=== PATIENT | female | born 1960 | race Caucasian/White ===

== ENCOUNTER 2016-12-20 02:49 | Emergency (ER) | payer OTHER ==
[~2016-12-20] VITALS: Ht 165.1 cm; Wt 36.4 kg
[~2016-12-20 02:49] MED LIST: ALBU1NEB10 INH; CALC1CHW3 PO; CARI350T PO; CLR10 PO; DOCU100C31 PO; IPRA1AER2 INH; LIDO5DIS10 TOP; LORA-741 PO; MIRT15TA3 PO; OXGN; OXYC-609 PO; OXYC60TA8 PO; OXYSR/40 PO; RABE20TA5 PO; ZNTT/150 PO; ZOLP5TAB PO
[2016-12-20 02:54] VITALS: Ht 165.1 cm; Wt 36.4 kg
[2016-12-20 03:18] VITALS: TEMP 37
[2016-12-20] MEDS ORDERED: NITROGLYCERIN 0.4 MG SL PER TAB CHARGE SL STA (03:18)
[2016-12-20 03:23] VITALS: O2SAT 96
[2016-12-20] MEDS ORDERED: ALBINS/ INH (03:28)
[2016-12-20] MEDS ORDERED: SODIUM CHLORIDE 0.9% 250ML 250 ML IV STA ×2 (03:29→03:44)
[2016-12-20] MEDS ORDERED: VNTHFA/IN INH (03:30)
[2016-12-20 03:38] LABS: BASO % 0.2 %; BASO ABS # 0.03 K/uL (0-0.2); EOS % 0.2 %; HEMATOCRIT 39.9 % (37-47); IG% 0.4 %; LYMPH % 12.9 %; LYMPH ABS # 1.61 K/uL (1.2-3.4); MEAN CORPUSCULAR HGB CONC 35.3 g/dl (32-36); MEAN PLATELET VOLUME 8.5 fL (7.4-10.4); MONO % 6.9 %; NEUT % 79.4 %; PLATELET COUNT 353 K/uL (130-400); RED BLOOD COUNT 3.44 M/uL (4.2-5.4); WHITE BLOOD COUNT 12.47 K/uL (4.8-10.8)
[2016-12-20] MEDS ORDERED: METHYLPREDNISOLONE 125 MG VIAL IV STA (03:38)
[2016-12-20] MEDS ORDERED: FENTANYL CITRATE INJ 50 MCG/1 ML 2 ML VIAL IV STA (03:42)
[2016-12-20 03:45] LABS: BUN/CREATININE RATIO 8.5 (10-20); CALCIUM 8.8 mg/dl (8.5-10.1); CREATININE 0.61 mg/dl (0.60-1.20)
[2016-12-20 03:59] LABS: COMPLETE YES
--- NOTE | 2016-12-20 04:49 | EMERGENCY ROOM VISIT NOTE ---
History First contact with patient: 02:54 Chief Complaint: CHEST PAIN Stated Complaint: CHEST PAIN Nursing Triage Summary: Chest pain 08/09 and SOB. History of Present Illness The patient is a 56 year old female who presents to the Emergency Room with complaints of midsternal chest pain that woke up out of sleep at 2:30 AM described as aching, ranging in severity 10 out of 10. Nothing makes it better. Breathing makes it worse. Patient states she's been coughing for the past week with yellow-green phlegm. She feels slightly sick. She states she's had a low-grade temperature. Patient denies abdominal pain, diarrhea, leg pain or swelling. She does smoke. She normally wears oxygen. She states this does not feel like her pancreatitis. Patient states she's a few episodes of vomiting. Review of Systems See HPI for pertinent positives & negatives. A total of 10 systems reviewed and were otherwise negative. Past Medical/Surgical History Medical Problems: (1) ABN LIVER FUNCTION STUDY (2) Back pain (3) Terrell's palsy (4) Chest pain (5) CHRONIC OBSTRUCTIVE ASTHMA, NOS (6) COPD (chronic obstructive pulmonary disease) (7) DEPRESSIVE DISORDER NEC (8) EMPHYSEMA NEC (9) GERD (gastroesophageal reflux disease) (10) Osteoporosis (11) Pancreatitis (12) Stomach ulcer (13) TOBACCO USE DISORDER (14) Ulcer Surgical Problems: (1) H/o lumbar spinal surgery (2) H/O tubal ligation (3) History of appendectomy (4) History of carpal tunnel release (5) History of cholecystectomy (6) Hx of appendectomy (7) Hx of cholecystectomy (8) S/p EGD (9) S/p placement of lumbar electrical stimulator Family History Blood clots FH: colon cancer Social History Smoking Status: Current Every Day Smoker Alcohol Use: occasionally Drug Use: none Marital Status: Housing Status: lives with family Occupation Status: unemployed Current/Historical Medications Scheduled Albuterol Sulf (Proventil 0.083% 2.5MG/3ML), 2.5 MG INH DIRECTED Calcium Carbonate-Cholecalcife (Oysco 500+D), 1 TAB PO DAILY Docusate Sodium (Docusate Sodium), 1 CAP PO BID Doxycycline Hyclate (Vibramycin), 100 MG PO BID Ipratropium-Albuterol (Combivent Respimat), 1 PUFF INH QID Lidocaine (Lidoderm Patch 5% Patch), 1 PATCH TOP DAILY Loratadine (Claritin), 10 MG PO DAILY Lorazepam (Ativan), 0.5 MG PO HS Mirtazapine (Remeron), 15 MG PO HS Oxycodone HCl (Oxycontin), 40 MG PO Q12 Oxycodone Hcl (Oxycontin), 60 MG PO Q12 Oxygen (Oxygen), 2 LITERS NA HS Prednisone (Prednisone), 50 MG PO DAILY Rabeprazole Sodium (Aciphex), 20 MG PO BID Ranitidine (Zantac), 150 MG PO BID Scheduled PRN Albuterol Hfa (Ventolin Hfa), 2 PUFFS INH Q6H PRN for SOB/Wheezing Carisoprodol (Soma), 350 MG PO DAILY PRN for Muscle Spasm Oxycodone HCl (Oxycodone HCl), 5 MG PO Q4H PRN for Pain Zolpidem Tartrate (Ambien), 5 MG PO HS PRN for Sleep Allergies Coded Allergies: Morphine (Unverified Allergy, Intermediate, hives, 12/20/16) Sulfa Drugs (Unverified Allergy, Intermediate, PERIORBITAL EDEMA, 12/20/16) Penicillins (Unverified Allergy, Unknown, ., 12/20/16) Physical Exam Vital Signs Date Time Temp Pulse Resp B/P Pulse Ox O2 Delivery O2 Flow Rate FiO2 12/20/16 04:04 108 20 127/79 98 Nasal Cannula 2.0 12/20/16 03:45 109 20 127/81 97 Nasal Cannula 2.0 12/20/16 03:35 113 12/20/16 03:26 116 24 101/80 97 Nasal Cannula 2.0 12/20/16 03:23 96 Nasal Cannula 2.0 12/20/16 03:22 96 Nasal Cannula 2.0 12/20/16 03:18 37.0 12/20/16 02:54 37.0 129 23 133/81 91 Room Air 12/20/16 02:54 92 Room Air Physical Exam VITALS: Vitals are noted on the nurse's note and reviewed by myself. Vital signs tachycardic GENERAL: White female appearing older than stated age wearing oxygen, in no acute distress, nondiaphoretic, well-developed well-nourished. SKIN: The skin was without rashes, erythema, edema, or bruising. There is no tenting of the skin. Capillary reflex less than 2 seconds. HEAD: Normocephalic atraumatic. EARS: External auditory canals clear, tympanic membranes pearly van without erythema or effusion bilaterally. EYES: Pupils equal round and reactive to light and accommodation. Conjunctivae without injection, sclerae without icterus. Extraocular movements intact. NOSE: Patent, turbinates without inflammation or discharge. MOUTH: Mucous membranes mildly dry. Pharynx without erythema or exudate. Uvula midline. Airway patent. Tongue does not deviate. NECK: Supple without nuchal rigidity. No lymphadenopathy. No thyromegaly. Cervical spine is nontender. No JVD. HEART: Regular rate and rhythm LUNGS: Mild diffuse end expiratory wheezes, without rales or rhonchi. No dullness to percussion. No retractions or accessory muscle use. ABDOMEN: Positive bowel sounds x 4. Normal tympanic percussion. Soft, nontender, without masses or organomegaly. Bond sign negative. No guarding or rebound tenderness. MUSCULOSKELETAL: No muscle atrophy, erythema, or edema noted. NEURO: Patient was alert and oriented to person place and time. Normal sensation to light and sharp touch. No focal neurological deficits. Medical Decision & Procedures Laboratory Results 12/20/16 02:28 Red Blood Count 3.44, Mean Corpuscular Volume 116.0, Mean Corpuscular Hemoglobin 41.0, Mean Corpuscular Hemoglobin Concent 35.3, Mean Platelet Volume 8.5, Neutrophils (%) (Auto) 79.4, Lymphocytes (%) (Auto) 12.9, Monocytes (%) ( Auto) 6.9, Eosinophils (%) (Auto) 0.2, Basophils (%) (Auto) 0.2, Neutrophils # ( Auto) 9.89, Lymphocytes # (Auto) 1.61, Monocytes # (Auto) 0.86, Eosinophils # ( Auto) 0.03, Basophils # (Auto) 0.03 12/20/16 02:28 Test 12/20/16 02:28 12/20/16 03:26 12/20/16 04:00 White Blood Count 12.47 K/uL (4.8-10.8) Red Blood Count 3.44 M/uL (4.2-5.4) Hemoglobin 14.1 g/dL (12.0-16.0) Hematocrit 39.9 % (37-47) Mean Corpuscular Volume 116.0 fL (80-100) Mean Corpuscular Hemoglobin 41.0 pg (25-34) Mean Corpuscular Hemoglobin Concent 35.3 g/dl (32-36) Platelet Count 353 K/uL (130-400) Mean Platelet Volume 8.5 fL (7.4-10.4) Neutrophils (%) (Auto) 79.4 % Lymphocytes (%) (Auto) 12.9 % Monocytes (%) (Auto) 6.9 % Eosinophils (%) (Auto) 0.2 % Basophils (%) (Auto) 0.2 % Neutrophils # (Auto) 9.89 K/uL (1.4-6.5) Lymphocytes # (Auto) 1.61 K/uL (1.2-3.4) Monocytes # (Auto) 0.86 K/uL (0.11-0.59) Eosinophils # (Auto) 0.03 K/uL (0-0.5) Basophils # (Auto) 0.03 K/uL (0-0.2) RDW Standard Deviation 56.9 fL (36.4-46.3) RDW Coefficient of Variation 13.6 % (11.5-14.5) Immature Granulocyte % (Auto) 0.4 % Immature Granulocyte # (Auto) 0.05 K/uL (0.00-0.02) Macrocytosis PRESENT Anion Gap 10.0 mmol/L (3-11) Est Creatinine Clear Calc Drug Dose 60.6 ml/min Estimated GFR () 119.1 Estimated GFR (Non- 102.8 BUN/Creatinine Ratio 8.5 (10-20) Calcium Level 8.8 mg/dl (8.5-10.1) Total Bilirubin 0.5 mg/dl (0.2-1) Direct Bilirubin 0.3 mg/dl (0-0.2) Aspartate Amino Transf (AST/SGOT) 56 U/L (15-37) Alanine Aminotransferase (ALT/SGPT) 59 U/L (12-78) Alkaline Phosphatase 1241 U/L (45-117) Total Creatine Kinase 49 U/L (26-192) Creatine Kinase MB 1.0 ng/ml (0.5-3.6) Creatine Kinase MB Ratio 2.0 (0-3.0) Total Protein 7.4 gm/dl (6.4-8.2) Albumin 3.5 gm/dl (3.4-5.0) Lipase 208 U/L (73-393) Bedside Troponin I 0.000 ng/ml (0-0.045) Influenza Type A Antigen Neg for Influ A (NEG) Influenza Type B Antigen Neg for Influ B (NEG) Medications Administered Medications (Trade) Dose Ordered Sig/Jonathon Route Start Time Stop Time Status Last Admin Dose Admin Sodium Chloride (Nss 250ml) 250 ml @ 999 mls/hr Q16M STAT IV 12/20/16 03:29 12/20/16 03:44 DC 12/20/16 03:48 999 MLS/HR Methylprednisolone Sodium Succinate (Solu-Medrol IV) 125 mg NOW STAT IV 12/20/16 03:38 12/20/16 03:39 DC 12/20/16 03:48 125 MG Fentanyl Citrate 50 mcg 50 mcg NOW STAT IV 12/20/16 03:42 12/20/16 03:43 DC 12/20/16 03:52 50 MCG Sodium Chloride (Nss 250ml) 250 ml @ 999 mls/hr Q16M STAT IV 12/20/16 03:44 12/20/16 03:59 DC 12/20/16 03:51 999 MLS/HR ED Course Prior records/ancillary studies reviewed. Triage Nursing notes reviewed. Additional history obtained from family. The patient's history was concerning for chest pain. Differential diagnosis: Etiologies such as cardiac ischemia, aortic dissection, pulmonary embolism, pneumonia, pneumothorax, musculoskeletal, infections, pericarditis, myocarditis , esophageal rupture, gastrointestinal, as well as others were entertained. Physical examination: As above. ER treatment provided: Solu-Medrol, fentanyl, IV fluids On reassessment the patient felt better. Diagnostic interpretation by me: The electrocardiogram was ST depression in the anterior lateral leads, normal intervals, normal axis, rate of 128. EKG compared to prior EKG. Impression sinus tachycardia with ST depressions in the anterolateral leads interpreted by myself The labs revealed Leukocytosis. Negative troponin Imaging studies: Chest x-ray with no acute consolidation or pneumothorax per my interpretation Patient refused admission or further testing. Patient requested to leave. Patient signed out AGAINST MEDICAL ADVICE. I offered the patient repeat cardiac testing for further cardiac workup and stated she would like to leave. She states she'll see her family care doctor Tuesday as scheduled for follow- up. She understands the risks involved such as heart attack and/or or infection. She was given a short prescription of prednisone. She is advised to continue her nebulizer. She is advised to return to the ER for further workup worsening signs or symptoms or as needed. Patient had a negative troponin. She does stress echo February 2016 that was normal. By the evaluation outlined above emergent etiologies such as aortic dissection , pulmonary embolism, pneumonia, pneumothorax, pericarditis, myocarditis, gastrointestinal, as well as others were deemed relatively unlikely. The pt informed about the findings as listed above. All questions were answered and pleased with the treatment. Return instructions were outlined and the patient was discharged in stable condition. Outpatient prescription management: Penicillin Referral: The patient was referred back to primary care physician for follow-up in 2 to 3 days for a recheck of the current condition. Case reviewed with my attending. Medical Decision As above Impression Primary Impression: COPD exacerbation Additional Impression: Chest pain Departure Information Dispostion Against Medical Advice Condition FAIR Prescriptions Prednisone (Prednisone Tab) 20 Mg Tab 40 MG PO DAILY for 4 Days, #8 TAB Prov: Glenis Santana .MAHENDRA 12/20/16 Doxycycline Hyclate (VIBRAMYCIN) 100 Mg Cap 100 MG PO BID for 7 Days, #14 CAP Prov: Glenis Santana PA-C 12/20/16 Referrals Marcelo Epps M.D. (PCP) Patient Instructions My [facility] Additional Instructions You are leaving AGAINST MEDICAL ADVICE. You are at risk for heart attack and/ or . Albuterol Inhaler: Take 2 puffs four times daily for five days, then as needed. Prednisone 20mmg daily until the prescription is finished. It is best to take this earlier in the day as some patients note occasional difficulty falling asleep when taken in the late evening. Rest and drink plenty of fluids. Avoid smoke/smoking, fumes, dust, or any triggers in the past that may have affected your breathing. Continue current medications. Return to the ER for chest pain, difficulty breathing, fevers, vomiting, worsening of your condition, or as needed. Follow up with your primary physician in one to 2 days for a recheck of your current condition. Problem Qualifiers
[2016-12-20] MEDS ORDERED: PRED50TA PO (04:50)
[2016-12-20] MEDS ORDERED: DOXY100C2 PO (04:52)
[2016-12-20] MEDS ORDERED: PRED20TA2 PO (04:54)
[2016-12-20 04:58] VITALS: BP 126/80; PULSE 105; O2SAT 96
[2016-12-20 06:08] LABS: INFLUENZA A PCR Neg for Influ A (NEG); INFLUENZA B PCR Neg for Influ B (NEG)
--- NOTE | 2016-12-20 06:38 | DIAGNOSTIC IMAGING REPORT ---
CHEST ONE VIEW PORTABLE CLINICAL HISTORY: Atypical chest pain COMPARISON STUDY: 07/29/2016 FINDINGS: The cardiac and mediastinal contours are normal. There is no evidence of focal pulmonary consolidation. There is no evidence of failure. No pleural effusions are visualized.[ IMPRESSION: No active disease in the chest. Electronically signed by: Patrice Gomes M.D. 12/20/2016 6:36 AM Dictated Date/Time: 12/20/2016 6:36 AM
[2017-03-07] MEDS ORDERED: NCDT14 TD (17:47)
[2017-03-15] MEDS ORDERED: RABE20TA5 PO (00:41)
[2017-03-15] MEDS ORDERED: UMEC1AER INH (00:41)
[2017-03-31] MEDS ORDERED: ASPI81TA28 PO (15:46)
[2017-03-31] MEDS ORDERED: PREDPOW63 PO (16:16)
[2017-03-31] MEDS ORDERED: UMEC1AER INH (16:16)
[2017-05-27] MEDS ORDERED: PRLSR20 PO (11:38)
[2017-05-27] MEDS ORDERED: UMEC1AER INH (11:38)
== END 2016-12-20 04:58 | disposition left against medical advice (07) ==
LOC: EDBD 02:49 → C.EDA 02:50
DX: J44.1 Chronic obstructive pulmonary disease with (acute) exacerbation (principal); G51.0 Bell's palsy; K21.9 Gastro-esophageal reflux disease without esophagitis; M81.0 Age-related osteoporosis without current pathological fracture; F17.210 Nicotine dependence, cigarettes, uncomplicated; Z98.51 Tubal ligation status; Z90.49 Acquired absence of other specified parts of digestive tract; Z79.899 Other long term (current) drug therapy

== ENCOUNTER 2017-02-24 03:28 | Inpatient (IN) | payer OTHER ==
[~2017-02-24] VITALS: Ht 165.1 cm; Wt 39.0 kg
[2017-02-24] VITALS (7 sets, daily range): BP systolic 110–148; BP diastolic 69–82; PULSE 62–97; TEMP 36–36.5; O2SAT 95–100; Ht 165.1 cm; Wt 39.0 kg
[~2017-02-24 03:28] MED LIST changes: +ALBINS/ INH; -ALBU1NEB10 INH; +DOXY100C2 PO; +VNTHFA/IN INH
[2017-02-24] MEDS ORDERED: ONDANSETRON INJ 2 MG/ML 2 ML VIAL ONE (04:04)
[2017-02-24] MEDS ORDERED: FENTANYL CITRATE INJ 50 MCG/1 ML 2 ML VIAL ONE (04:04)
--- NOTE | 2017-02-24 04:18 | EMERGENCY ROOM VISIT NOTE ---
History Report prepared by Estelaibujnior: Navneet Turk Under the Supervision of: Dr. Gabe Parrish D.O. First contact with patient: 04:11 Chief Complaint: ABDOMINAL PAIN Stated Complaint: ABD PAIN,BACK PAIN,VOMITING History of Present Illness The patient is a 56 year old female with a history of pancreatitis who presents to the Emergency Room with complaints of persistent severe abdominal pain for the past two hours. The pain radiates to her chest and is rated 10/10 in severity. The patient also complains of nausea and vomiting. She denies any fevers. The patient notes that her pain feels like past episodes of pancreatitis. She attributes the pancreatitis to alcohol. The patient denies recent heavy drinking. Source of History: patient Onset: two hours [employer] Position: abdomen Symptom Intensity: severe Timing: other (persistent) Associated Symptoms: + nausea, + vomiting, No fevers Review of Systems See HPI for pertinent positives and negatives. A total of ten systems were reviewed and were otherwise negative. Past Medical & Surgical Medical Problems: (1) ABN LIVER FUNCTION STUDY (2) Back pain (3) Terrell's palsy (4) Chest pain (5) CHRONIC OBSTRUCTIVE ASTHMA, NOS (6) COPD (chronic obstructive pulmonary disease) (7) DEPRESSIVE DISORDER NEC (8) EMPHYSEMA NEC (9) GERD (gastroesophageal reflux disease) (10) Osteoporosis (11) Pancreatitis (12) Stomach ulcer (13) TOBACCO USE DISORDER (14) Ulcer Surgical Problems: (1) H/o lumbar spinal surgery (2) H/O tubal ligation (3) History of appendectomy (4) History of carpal tunnel release (5) History of cholecystectomy (6) Hx of appendectomy (7) Hx of cholecystectomy (8) S/p EGD (9) S/p placement of lumbar electrical stimulator Family History Blood clots FH: colon cancer Social History Smoking Status: Current Every Day Smoker Alcohol Use: occasionally Drug Use: none Marital Status: Housing Status: lives with family Occupation Status: unemployed Current/Historical Medications Scheduled Albuterol Sulf (Proventil 0.083% 2.5MG/3ML), 2.5 MG INH DIRECTED Calcium Carbonate-Cholecalcife (Oysco 500+D), 1 TAB PO DAILY Docusate Sodium (Docusate Sodium), 1 CAP PO BID Doxycycline Hyclate (Vibramycin), 100 MG PO BID Ipratropium-Albuterol (Combivent Respimat), 1 PUFF INH QID Lidocaine (Lidoderm Patch 5% Patch), 1 PATCH TOP DAILY Loratadine (Claritin), 10 MG PO DAILY Lorazepam (Ativan), 0.5 MG PO HS Mirtazapine (Remeron), 15 MG PO HS Oxycodone HCl (Oxycontin), 40 MG PO Q12 Oxycodone Hcl (Oxycontin), 60 MG PO Q12 Oxygen (Oxygen), 2 LITERS NA HS Rabeprazole Sodium (Aciphex), 20 MG PO BID Ranitidine (Zantac), 150 MG PO BID Scheduled PRN Albuterol Hfa (Ventolin Hfa), 2 PUFFS INH Q6H PRN for SOB/Wheezing Carisoprodol (Soma), 350 MG PO DAILY PRN for Muscle Spasm Oxycodone HCl (Oxycodone HCl), 5 MG PO Q4H PRN for Pain Zolpidem Tartrate (Ambien), 5 MG PO HS PRN for Sleep Allergies Coded Allergies: Morphine (Unverified Allergy, Intermediate, hives, 12/20/16) Sulfa Drugs (Unverified Allergy, Intermediate, PERIORBITAL EDEMA, 12/20/16) Penicillins (Unverified Allergy, Unknown, ., 12/20/16) Physical Exam Vital Signs Date Time Temp Pulse Resp B/P Pulse Ox O2 Delivery O2 Flow Rate FiO2 02/24/17 03:36 36.8 90 20 150/75 94 Room Air Physical Exam GENERAL: Awake, alert, cachectic, in no distress. Patient vomiting bile. HENT: Normocephalic, atraumatic. Oropharynx unremarkable. EYES: Normal conjunctiva. Sclera non-icteric. NECK: Supple. No nuchal rigidity. FROM. No JVD. RESPIRATORY: Clear to auscultation. CARDIAC: Regular rate, normal rhythm. Extremities warm and well perfused. Pulses equal. ABDOMEN: Soft, non-distended. Tender to palpation of the epigastrium. No rebound or guarding. No masses. RECTAL: Deferred. MUSCULOSKELETAL: Chest examination reveals no tenderness. The back is symmetrical on inspection without obvious abnormality. There is no CVA tenderness to palpation. No joint edema. LOWER EXTREMITIES: Calves are equal size bilaterally and non-tender. No edema. No discoloration. NEURO: Normal sensorium. No sensory or motor deficits noted. SKIN: No rash or jaundice noted. Medical Decision & Procedures Laboratory Results 02/24/17 03:45 Test 02/24/17 03:45 Anion Gap 8.0 mmol/L (3-11) Estimated GFR () 119.8 Estimated GFR (Non- 103.3 BUN/Creatinine Ratio 14.9 (10-20) Calcium Level 8.7 mg/dl (8.5-10.1) Total Bilirubin 0.5 mg/dl (0.2-1) Aspartate Amino Transf (AST/SGOT) 276 U/L (15-37) Alanine Aminotransferase (ALT/SGPT) 154 U/L (12-78) Alkaline Phosphatase 849 U/L (45-117) Total Protein 7.7 gm/dl (6.4-8.2) Albumin 4.1 gm/dl (3.4-5.0) Globulin 3.6 gm/dl (2.5-4.0) Albumin/Globulin Ratio 1.1 (0.9-2) Lipase 953 U/L (73-393) Laboratory results reviewed by me Medications Administered Medications (Trade) Dose Ordered Sig/Jonathon Route Start Time Stop Time Status Last Admin Dose Admin Fentanyl Citrate (Fentanyl Inj) 100 mcg NOW ONCE IV 02/24/17 04:30 02/24/17 04:32 DC 02/24/17 04:35 100 MCG ECG Indication: abdominal pain Rate (beats per minute): 83 Rhythm: normal sinus Findings: no acute ischemic change, no ectopy, other (normal axis, normal intervals) ED Course 0359: The patient was evaluated in room B11b. A complete history and physical exam was performed. 0430: Fentanyl 100 mcg IV. 0422: The patient is still having a lot of pain. 0525: Dilaudid 0.5 mg IV. 0535: [facility] Medical Decision Differential diagnosis: Etiologies such as appendicitis, diverticulitis, PUD, biliary pathology, UTI, pancreatitis, obstruction, mesenteric ischemia, aortic pathology, infections, inflammatory bowel disease, renal colic, as well as others were entertained. Continue to complain of pain patient was given Zofran and fentanyl and Dilaudid. Patient has an elevated lipase. The case was discussed with the [facility] hospitalist for admission at 5:38 AM Impression Primary Impression: Pancreatitis Scribe Attestation The scribe's documentation has been prepared under my direction and personally reviewed by me in its entirety. I confirm that the note above accurately reflects all work, treatment, procedures, and medical decision making performed by me. Departure Information Dispostion Being Evaluated By Hospitalist Referrals Marcelo Epps M.D. (PCP) Patient Instructions My [facility] Problem Qualifiers Primary Impression: Pancreatitis Chronicity: acute Pancreatitis type: alcohol induced Acute pancreatitis complication: unspecified Qualified Codes: K85.20 - Alcohol induced acute pancreatitis without necrosis or infection
[2017-02-24 04:30] LABS: ALT/SGPT 154 U/L (12-78); AST/SGOT 276 U/L (15-37); BLOOD UREA NITROGEN 9 mg/dl (7-18); BUN/CREATININE RATIO 14.9 (10-20); CALCIUM 8.7 mg/dl (8.5-10.1); CARBON DIOXIDE 26 mmol/L (21-32); CHLORIDE 98 mmol/L (98-107); GLUCOSE 123 mg/dl (70-99); POTASSIUM 4.3 mmol/L (3.5-5.1); SODIUM 132 mmol/L (136-145)
[2017-02-24] MEDS ORDERED: FENTANYL CITRATE INJ 50 MCG/1 ML 2 ML VIAL IV ONE (04:30)
[2017-02-24 04:33] LABS: ALB/GLOB RATIO 1.1 (0.9-2); ALKALINE PHOSPHATASE 849 U/L (45-117)
[2017-02-24] MEDS ORDERED: HYDROmorphone INJ 0.5 MG/0.5 ML SYR IV STA (05:25)
[2017-02-24] MEDS ORDERED: OPTIRAY 320 IV PRN (05:45)
--- NOTE | 2017-02-24 05:58 | History and Physical ---
History & Physical Date & Time of Service: Feb 24, 2017 at 05:53 Chief Complaint: Abd Pain,Back Pain,Vomiting Primary Care Physician: Marcelo Epps M.D. History of Present Illness Source: patient, family Patient is a 56 yr old female with PMH of Alcohol abuse disorder, alcoholic pancreatitis, depression, COPD, tobacco abuse, chronic gastritis, cervical spine degeneration, chronic hyponatremia, GERD presents with history of worsening abdominal pain since one day duration. States having epigastric and RUQ abdominal pain radiating to right flank region, Sharp, 10/10 intensity, constant, no aggravating/relieving factors, associated with nausea, vomiting. States having similar pain previously from pancreatitis and admits to drinking alcohol yesterday. Also states having poor appetite, intermittent chills and diaphoresis since 2 days. Denies any fever, SOB, chest pain, palpitations, dizziness, diarrhea, increased urinary frequency, wheezing. States having chronic cough with clear expectoration. Past Medical/Surgical History Medical Problems: (1) ABN LIVER FUNCTION STUDY Status: Chronic (2) Back pain Status: Chronic (3) Terrell's palsy Status: Resolved (4) Chest pain Status: Resolved (5) CHRONIC OBSTRUCTIVE ASTHMA, NOS Status: Chronic (6) COPD (chronic obstructive pulmonary disease) Status: Chronic (7) DEPRESSIVE DISORDER NEC Status: Chronic (8) EMPHYSEMA NEC Status: Chronic (9) GERD (gastroesophageal reflux disease) Status: Chronic (10) Osteoporosis Status: Chronic (11) Pancreatitis Status: Chronic (12) Stomach ulcer Status: Resolved (13) TOBACCO USE DISORDER Status: Chronic (14) Ulcer Status: Chronic Surgical Problems: (1) H/o lumbar spinal surgery Status: Chronic (2) H/O tubal ligation Status: Chronic (3) History of appendectomy Status: Resolved (4) History of carpal tunnel release Status: Resolved (5) History of cholecystectomy Status: Resolved (6) Hx of appendectomy Status: Chronic (7) Hx of cholecystectomy Status: Chronic (8) S/p EGD Status: Chronic (9) S/p placement of lumbar electrical stimulator Status: Chronic Family History Blood clots FH: colon cancer Reviewed. Not relevant Social History Smoking Status: Current Every Day Smoker Alcohol Use: occasionally Drug Use: none Marital Status: Housing status: lives with family Occupational Status: unemployed Immunizations History of Influenza Vaccine: Yes Influenza Vaccine Date: Sep 30, 2015 History of Pneumococcal: Yes Multi-Drug Resistant Organisms History of MDRO: No Allergies Coded Allergies: Morphine (Unverified Allergy, Intermediate, hives, 02/24/17) Sulfa Drugs (Unverified Allergy, Intermediate, PERIORBITAL EDEMA, 02/24/17) Penicillins (Unverified Allergy, Unknown, ., 02/24/17) Home Medications Scheduled Albuterol Sulf (Proventil 0.083% 2.5MG/3ML), 2.5 MG INH DIRECTED Calcium Carbonate-Cholecalcife (Oysco 500+D), 1 TAB PO DAILY Docusate Sodium (Docusate Sodium), 1 CAP PO BID Ipratropium-Albuterol (Combivent Respimat), 1 PUFF INH QID Lidocaine (Lidoderm Patch 5% Patch), 1 PATCH TOP DAILY Loratadine (Claritin), 10 MG PO DAILY Lorazepam (Ativan), 0.5 MG PO HS Mirtazapine (Remeron), 15 MG PO HS Oxycodone HCl (Oxycontin), 40 MG PO Q12 Oxycodone Hcl (Oxycontin), 60 MG PO Q12 Oxygen (Oxygen), 2 LITERS NA HS Rabeprazole Sodium (Aciphex), 20 MG PO BID Ranitidine (Zantac), 150 MG PO BID Scheduled PRN Albuterol Hfa (Ventolin Hfa), 2 PUFFS INH Q6H PRN for SOB/Wheezing Carisoprodol (Soma), 350 MG PO DAILY PRN for Muscle Spasm Oxycodone HCl (Oxycodone HCl), 5 MG PO Q4H PRN for Pain Zolpidem Tartrate (Ambien), 5 MG PO HS PRN for Sleep Review of Systems See HPI for pertinent positives & negatives. A total of 10 systems reviewed and were otherwise negative. Physical Exam Vital Signs Date Time Temp Pulse Resp B/P Pulse Ox O2 Delivery O2 Flow Rate FiO2 02/24/17 03:36 36.8 90 20 150/75 94 Room Air General Appearance: + mild distress, + thin Head: normocephalic, atraumatic Eyes: normal inspection, PERRL, EOMI ENT: normal ENT inspection, hearing grossly normal Neck: supple, trachea midline Respiratory/Chest: chest non-tender, lungs clear, no respiratory distress, no accessory muscle use, + decreased breath sounds Cardiovascular: regular rate, rhythm, no edema, no murmur, + tachycardia Abdomen/GI: normal bowel sounds, soft, + pertinent finding (RUQ and Epigastric tenderness, voluntary guarding) Back: normal inspection Extremities/Musculoskelatal: normal inspection, no calf tenderness, no pedal edema Neurologic/Psych: certified low vision therapist II-XII nml as tested, no motor/sensory deficits, alert, normal mood/affect, oriented x 3 Skin: normal color, warm/dry Lymphatic: no adenopathy Diagnostics Laboratory Results Results Past 24 Hours Test 02/24/17 03:45 Range/Units Sodium Level 132 136-145 mmol/L Potassium Level 4.3 3.5-5.1 mmol/L Chloride Level 98 98-107 mmol/L Carbon Dioxide Level 26 21-32 mmol/L Anion Gap 8.0 3-11 mmol/L Blood Urea Nitrogen 9 7-18 mg/dl Creatinine 0.60 0.60-1.20 mg/dl Estimated GFR () 119.8 Estimated GFR (Non- 103.3 BUN/Creatinine Ratio 14.9 10-20 Random Glucose 123 70-99 mg/dl Calcium Level 8.7 8.5-10.1 mg/dl Total Bilirubin 0.5 0.2-1 mg/dl Aspartate Amino Transf (AST/SGOT) 276 15-37 U/L Alanine Aminotransferase (ALT/SGPT) 154 12-78 U/L Alkaline Phosphatase 849 45-117 U/L Total Protein 7.7 6.4-8.2 gm/dl Albumin 4.1 3.4-5.0 gm/dl Globulin 3.6 2.5-4.0 gm/dl Albumin/Globulin Ratio 1.1 0.9-2 Lipase 953 73-393 U/L Diagnostic Radiology CT Abdomen: pending EKG EKG:Normal sinus Impression Assessment and Plan Acute on chronic alcoholic pancreatitis Presents with epigastric and RUQ abdominal pain, nausea, vomiting after alcohol use Transaminitis, Lipase elevated: 953 ? 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
[2017-02-24] MEDS ORDERED: LORAZEPAM 1 MG TAB PO PRN (06:30)
[2017-02-24] MEDS ORDERED: ONDANSETRON INJ 2 MG/ML 2 ML VIAL IV PRN (06:30)
[2017-02-24] MEDS ORDERED: ACETAMINOPHEN 325 MG TAB PO PRN (06:30)
[2017-02-24] MEDS ORDERED: HYDROmorphone INJ 0.5 MG/0.5 ML SYR IV PRN (06:30)
[2017-02-24 06:33] LABS: BASO % 0.5 %; BASO ABS # 0.04 K/uL (0-0.2); COMPLETE YES; EOS % 0.9 %; IG% 0.3 %; LYMPH % 19.8 %; LYMPH ABS # 1.54 K/uL (1.2-3.4); MEAN CELL VOLUME 117.3 fL (80-100); MEAN CORPUSCULAR HEMOGLOBIN 39.5 pg (25-34); MEAN CORPUSCULAR HGB CONC 33.6 g/dl (32-36); MEAN PLATELET VOLUME 8.8 fL (7.4-10.4); MONO % 5.5 %; PLATELET COUNT 329 K/uL (130-400); RED BLOOD COUNT 3.75 M/uL (4.2-5.4); WHITE BLOOD COUNT 7.78 K/uL (4.8-10.8)
[2017-02-24] MEDS ORDERED: HYDROmorphone INJ 1 MG/ML SYR IV STA (06:37)
[2017-02-24] MEDS ORDERED: OXYCODONE IR HOME PACK PO PRN (06:45)
[2017-02-24] MEDS ORDERED: CARISOPRODOL 350 MG TAB PO PRN (06:45)
[2017-02-24] MEDS ORDERED: NURSING VERBAL MED ORDER ONE ×2 (07:45→09:45)
[2017-02-24] MEDS: SODIUM CHLORIDE 0.9% 1000ML 1,000 ML IV SCH ×4 (08:00→16:07)
[2017-02-24] MEDS ORDERED: SODIUM CHLORIDE 0.9% 1000ML 1,000 ML IV SCH (08:00)
--- NOTE | 2017-02-24 08:19 | DIAGNOSTIC IMAGING REPORT ---
CT OF THE ABDOMEN AND PELVIS WITH CONTRAST CLINICAL HISTORY: Abdominal pain and vomiting. COMPARISON STUDY: CT of the abdomen and pelvis and MRCP March 12, 2016. TECHNIQUE: Following IV administration of 92 mL of Optiray-320, axial images of the abdomen and pelvis were obtained from the lung bases to the proximal femurs. Images were reviewed in the axial, sagittal, and coronal planes. IV contrast was administered without complication. CT DOSE: 245.28 mGy.cm FINDINGS: Moderate biliary ductal dilatation is unchanged since prior exam of March 12, 2016 and likely due to prior cholecystectomy. A 9 mm hypodense lateral segment hepatic lesion is unchanged and suggestive of a cyst. The spleen, adrenal glands and kidneys are normal. The main, left and right portal veins are patent. Evaluation of the abdomen and pelvis is difficult due to paucity of intra-abdominal fat. There is diffuse mesenteric edema and trace ascites. Mild wall thickening of the distal stomach is noted. There is no pneumatosis, free air or portal venous gas. Pancreatic glandular atrophy is noted. There is no pancreatic ductal dilatation. There is intermediate attenuation material along the right aspect of the superior mesenteric artery shown on axial image 29 of 81. This is new since prior exam. This is indeterminate. Note is made of a 7 mm peripancreatic lymph node shown on image 125 which may have central low attenuation. The superior mesenteric and splenic veins are patent. There is no evidence for a bowel obstruction. No suspicious skeletal lesions are identified. There are postsurgical findings within the spine. IMPRESSION: 1. Abnormal soft tissue density abutting the superior mesenteric artery which is new since CT of March 12, 2016. This finding is nonspecific and could reflect the sequela of pancreatitis or less likely hemorrhage. A neoplastic etiology could appear similar and therefore a follow-up CT of the abdomen pancreas protocol in one month is recommended. Findings discussed with Dr. Sauceda at time of dictation. 2. Stable biliary ductal dilatation which is likely due to prior cholecystectomy. 3. Mild wall thickening of the distal stomach. This could be due to underdistention or represent gastritis. 4. Technically difficult study to interpret due to a paucity of intra-abdominal fat with diffuse mesenteric edema and trace ascites. Electronically signed by: Isaac Ballesteros M.D. 02/24/2017 8:18 AM Dictated Date/Time: 02/24/2017 7:53 AM
[2017-02-24 08:32] LABS: PROTHROMBIN TIME (PATIENT) 10.8 SECONDS (9.0-12.0)
[2017-02-24] MEDS: ALBUT/IPRATROP 3MG/0.5MG NEB 3 ML VIAL INH SCH ×3 (08:39→15:47)
[2017-02-24] MEDS ORDERED: THIAMINE HCL 100 MG TAB PO SCH (09:00)
[2017-02-24] MEDS ORDERED: LIDODERM (LIDOCAINE) PATCH 5% TD SCH (09:00)
[2017-02-24] MEDS ORDERED: NICOTINE 14 MG/24 HR TDSY TD SCH (09:00)
[2017-02-24] MEDS ORDERED: DOCUSATE SODIUM 100 MG CAP PO SCH (09:00)
[2017-02-24] MEDS ORDERED: OXYCODONE HCL 20 MG TABCR (OXYCONTIN) PO SCH (09:00)
[2017-02-24] MEDS ORDERED: LORATADINE 10 MG TAB PO SCH (09:00)
[2017-02-24] MEDS ORDERED: FLUTICASONE/SALMETEROL 250/50 (ADVAIR) 14 PUFF/1 INHALER INH SCH (09:00)
[2017-02-24] MEDS ORDERED: HYDROmorphone INJ 1 MG/ML SYR IV ONE (09:45)
[2017-02-24] MEDS ORDERED: HYDROmorphone INJ 1 MG/ML SYR IV PRN (09:45)
[2017-02-24] MEDS ORDERED: PANTOprazole INJ 40 MG in SYRINGE 0 ML IV SCH (11:00)
--- NOTE | 2017-02-24 11:29 | Gastrointestinal Consultation ---
Gastrointestinal Consultation Date of Consultation: Feb 24, 2017 Attending Physician: Dr. Sauceda Consulting Physician: Dr. Llamas Reason for Consultation: Pancreatitis History of Present Illness Patient is a 56 year old female with PMHx of ETOH and tobacco use, depression, COPD, DJD on chronic narcotics, GERD and ETOH pancreatitis on prior admission one year ago admitted for similar symptoms of abdominal pain, nausea and vomiting, elevated lipase at [address] scan detailed below for which GI is consulted. Pt notes she developed acute onset abdominal pain radiating to her back with nausea and bilious vomiting around 2am this morning. Feels similar to past admission one year ago. Denies bowel changes. Has attempted ERCP for tyrone/dil in 2010 but scope was unable to be passed due to her hx of neck surgery with cage. Had EGD same day with hx of gastric ulcer. She has GERD and remains on PPI and Ranitidine. Still having abdominal pain this morning, requiring IV pain meds. Recently saw YOSELYN Mendez in out patient clinic and is ongoing work up for elevated LFTs with alk phos elevated out of proportion to her LFTs. US of abdomen showed no acute abnormalities. Pt has long hx of ETOH use since age 17, drank heaving in her 20's-30's and recently admits to ongoing ETOH, drinking 3 beers/day Pt recently lost brother to lung cancer Has quit drinking for a few years on her own in the past before resuming, tearful about topic today Pt thinks she is able to quit on her own again. Lives with who does not drink (per pt). Voices she does not want to be here long has she has too much responsibility at home. Denies new meds. CT Scan Report as follows: FINDINGS: Moderate biliary ductal dilatation is unchanged since prior exam of March 12, 2016 and likely due to prior cholecystectomy. A 9 mm hypodense lateral segment hepatic lesion is unchanged and suggestive of a cyst. The spleen, adrenal glands and kidneys are normal. The main, left and right portal veins are patent. Evaluation of the abdomen and pelvis is difficult due to paucity of intra-abdominal fat. There is diffuse mesenteric edema and trace ascites. Mild wall thickening of the distal stomach is noted. There is no pneumatosis, free air or portal venous gas. Pancreatic glandular atrophy is noted. There is no pancreatic ductal dilatation. There is intermediate attenuation material along the right aspect of the superior mesenteric artery shown on axial image 29 of 81. This is new since prior exam. This is indeterminate. Note is made of a 7 mm peripancreatic lymph node shown on image 125 which may have central low attenuation. The superior mesenteric and splenic veins are patent. There is no evidence for a bowel obstruction. No suspicious skeletal lesions are identified. There are postsurgical findings within the spine. IMPRESSION: 1. Abnormal soft tissue density abutting the superior mesenteric artery which is new since CT of March 12, 2016. This finding is nonspecific and could reflect the sequela of pancreatitis or less likely hemorrhage. A neoplastic etiology could appear similar and therefore a follow-up CT of the abdomen pancreas protocol in one month is recommended. Findings discussed with Dr. Sauceda at time of dictation. 2. Stable biliary ductal dilatation which is likely due to prior cholecystectomy. 3. Mild wall thickening of the distal stomach. This could be due to underdistention or represent gastritis. 4. Technically difficult study to interpret due to a paucity of intra-abdominal fat with diffuse mesenteric edema and trace ascites. Past Medical/Surgical History Medical Problems: (1) Abnormal liver function test Status: Acute (2) Chest pain Status: Acute (3) COPD exacerbation Status: Acute (4) Gastritis Status: Acute (5) Pancreatitis Status: Chronic (6) Pancreatitis Status: Acute (7) Pancreatitis, acute Status: Acute (8) Right upper quadrant abdominal pain Status: Acute Past Medical History: (1) ABN LIVER FUNCTION STUDY Status: Chronic (2) Back pain Status: Chronic (3) Terrell's palsy Status: Resolved (4) Chest pain Status: Resolved (5) CHRONIC OBSTRUCTIVE ASTHMA, NOS Status: Chronic (6) COPD (chronic obstructive pulmonary disease) Status: Chronic (7) DEPRESSIVE DISORDER NEC Status: Chronic (8) EMPHYSEMA NEC Status: Chronic (9) GERD (gastroesophageal reflux disease) Status: Chronic (10) Osteoporosis Status: Chronic (11) Pancreatitis Status: Chronic (12) Stomach ulcer Status: Resolved (13) TOBACCO USE DISORDER Status: Chronic (14) Ulcer Status: Chronic Past Surgical History: Surgical Problems: (1) H/o lumbar spinal surgery Status: Chronic (2) H/O tubal ligation Status: Chronic (3) History of appendectomy Status: Resolved (4) History of carpal tunnel release Status: Resolved (5) History of cholecystectomy Status: Resolved (6) Hx of appendectomy Status: Chronic (7) Hx of cholecystectomy Status: Chronic (8) S/p EGD Status: Chronic (9) S/p placement of lumbar electrical stimulator Status: Chronic Family History Blood clots FH: colon cancer Social History Smoking Status: Current Every Day Smoker Alcohol Use: occasionally, other (daily per HPI) Drug Use: none Marital Status: Housing Status: lives with family Occupation Status: unemployed Allergies Coded Allergies: Morphine (Verified Allergy, Intermediate, hives, 02/24/17) Penicillins (Verified Allergy, Unknown, ., 02/24/17) Sulfa Antibiotics (Verified Allergy, Unknown, PERIORBITAL EDEMA, 02/24/17) Current Medications Home Meds and Scripts Medications Dose Route/Sig Max Daily Dose Days Date Category Dose Instructions Ventolin Hfa (Albuterol) 200 Puffs/00278 Mcg Aers 2 Puffs INH Q6H PRN 12/20/16 Reported Proventil 0.083% 2.5MG/3ML (Albuterol Sulf) 2.5 Mg/3 Ml Nebu 2.5 Mg INH DIRECTED 12/20/16 Reported Zantac (Ranitidine HCl) 150 Mg Tab 150 Mg PO BID 03/23/16 Reported Oxygen Gas 2 Liters NA HS 09/17/15 Reported Oysco 500+D (Calcium Carbonate-Cholecalcife) 1 Chw Chw 1 Tab PO DAILY 09/17/15 Reported Docusate Sodium 100 Mg Cap 1 Cap PO BID 15 09/17/15 Reported Lidoderm Patch 5% Patch (Lidocaine) 1 Patch Tdsy 1 Patch TOP DAILY 30 09/17/15 Reported Ativan (Lorazepam) 0.5 Mg Tab 0.5 Mg PO HS 09/17/15 Reported Remeron (Mirtazapine) 15 Mg Tab 15 Mg PO HS 11/14/14 Reported Soma (Carisoprodol) 350 Mg Tab 350 Mg PO DAILY PRN 11/14/14 Reported Oxycodone HCl 5 Mg Tab 5 Mg PO Q4H PRN 11/14/14 Reported MAX= 6 TABLETS DAILY. Oxycontin (Oxycodone HCl) 40 Mg Tabcr 40 Mg PO Q12 11/14/14 Reported TAKE ONE 40 MG TABLET ALONG WITH ONE 60 MG TABLET TO EQUAL 100 MG DOSE. Combivent Respimat (Ipratropium-Albuterol) 1 Aer Aer 1 Puff INH QID 03/10/14 Reported Aciphex (Rabeprazole Sodium) 20 Mg Tab 20 Mg PO BID 03/10/14 Reported Claritin (Loratadine) 10 Mg Tab 10 Mg PO DAILY 03/10/14 Reported Oxycontin (Oxycodone Hcl) 60 Mg Tab 60 Mg PO Q12 07/04/13 Reported TAKE ONE 60 MG TABLET ALONG WITH ONE 40 MG TABLET TO EQUAL 100 MG DOSE. Ambien (Zolpidem Tartrate) 5 Mg Tab 5 Mg PO HS PRN 04/12/12 Reported Review of Systems Constitutional: No chills, No fever Eyes: No problem reported ENT: No hearing loss, No pain on swallowing Respiratory: No problem reported (hx of COPD, denies breathing changes) Cardiac: No chest pain, No edema Abdomen: + see HPI (last colonoscopy 2013, requires repeat this year due to suboptimal prep) Musculoskeletal: + joint pain (chronic back pain, on narcotics) Female : No problem reported Neuro: No problem reported Psych: No problem reported Heme: + problem reported Skin: No jaundice Physical Exam Date Time Temp Pulse Resp B/P Pulse Ox O2 Delivery O2 Flow Rate FiO2 02/24/17 08:40 88 16 98 Nasal Cannula 2.0 02/24/17 08:12 36.4 94 18 142/82 100 Nasal Cannula 2.0 02/24/17 07:45 36.4 94 18 148/82 100 Nasal Cannula 2.0 02/24/17 07:26 100 20 172/101 100 Nasal Cannula 2.0 02/24/17 06:33 84 02/24/17 06:28 108 22 100 02/24/17 06:01 152/100 02/24/17 05:45 127/91 02/24/17 05:28 83 100 02/24/17 04:58 84 17 100 02/24/17 04:28 86 15 02/24/17 03:36 36.8 90 20 150/75 94 Room Air 02/24/17 03:36 150/75 General Appearance: WD/WN, no apparent distress Eyes: PERRL ENT: normal ENT inspection, hearing grossly normal Neck: supple Respiratory/Chest: lungs clear, normal breath sounds, no respiratory distress Cardiovascular: regular rate, rhythm Abdomen: soft (no significant tenderness but has had recent pain meds, slight hypoactive bowel sounds, nondistended) Extremities: normal range of motion, no pedal edema Neurologic/Psych: alert, normal mood/affect, oriented x 3 Skin: no jaundice Laboratory Results Last 24 Hours Test 02/24/17 03:45 White Blood Count 7.78 K/uL Red Blood Count 3.75 M/uL Hemoglobin 14.8 g/dL Hematocrit 44.0 % Mean Corpuscular Volume 117.3 fL Mean Corpuscular Hemoglobin 39.5 pg Mean Corpuscular Hemoglobin Concent 33.6 g/dl Platelet Count 329 K/uL Mean Platelet Volume 8.8 fL Neutrophils (%) (Auto) 73.0 % Lymphocytes (%) (Auto) 19.8 % Monocytes (%) (Auto) 5.5 % Eosinophils (%) (Auto) 0.9 % Basophils (%) (Auto) 0.5 % Neutrophils # (Auto) 5.68 K/uL Lymphocytes # (Auto) 1.54 K/uL Monocytes # (Auto) 0.43 K/uL Eosinophils # (Auto) 0.07 K/uL Basophils # (Auto) 0.04 K/uL RDW Standard Deviation 48.6 fL RDW Coefficient of Variation 11.4 % Immature Granulocyte % (Auto) 0.3 % Immature Granulocyte # (Auto) 0.02 K/uL Nucleated RBC Absolute Count (auto) 0.00 K/uL Nucleated Red Blood Cells % 0.0 % Prothrombin Time 10.8 SECONDS Prothromb Time International Ratio 1.0 Sodium Level 132 mmol/L Potassium Level 4.3 mmol/L Chloride Level 98 mmol/L Carbon Dioxide Level 26 mmol/L Anion Gap 8.0 mmol/L Blood Urea Nitrogen 9 mg/dl Creatinine 0.60 mg/dl Estimated GFR () 119.8 Estimated GFR (Non- 103.3 BUN/Creatinine Ratio 14.9 Random Glucose 123 mg/dl Calcium Level 8.7 mg/dl Total Bilirubin 0.5 mg/dl Aspartate Amino Transf (AST/SGOT) 276 U/L Alanine Aminotransferase (ALT/SGPT) 154 U/L Alkaline Phosphatase 849 U/L Troponin I < 0.015 ng/ml Total Protein 7.7 gm/dl Albumin 4.1 gm/dl Globulin 3.6 gm/dl Albumin/Globulin Ratio 1.1 Lipase 953 U/L Impression Patient is a 56 year old female with hx of ETOH use, hx of elevated LFTs, admitted with pancreatitis and CT findings as reported above Plan ok to try clears, advance as tolerated change NSS to LR at 150/hr IV PPI Regarding new area on CT scan, will likely need repeat imaging as recommended by radiology after acute symptoms improve. tyrone/dil is stable (post edmar) Consider out patient EUS (pt was previously recommended in past to have EUS - may need tertiary referral note that she was unable to undergo ERCP in 2010 due to neck/hardware - would need tertiary center referral if issues in future continue out patient follow up for elevated LFTs Pt educated on complications of continued ETOH use, strongly encouraged to stop as this is the most important step for her at this time. Pt thinks some of her symptoms are from "lifting wood" - again educated that ETOH is the biggest factor at this time. I have seen, examined and agree with the plan as outlined by YOSELYN Sylvester as above. -exam reveals soft abd -Very mild tenderness on exam -CT with edema/phlegmon on imaging in posterior to pancreas/sma -ok to start clears, do not support discharge -F/U with [facility] Montemayor and Dr. Denton to decide upon if EUS can be pursued due to neck issues
[2017-02-24] MEDS ORDERED: HEPARIN SOD 5000 UNIT/0.5 ML CARP SQ SCH (14:00)
--- NOTE | 2017-02-24 16:53 | Progress Note ---
Progress Note Date of Service Feb 24, 2017. Progress Note This is a 56 year old female with PMH of alcoholic and recurrent pancreatitis, alcohol abuse, depression, chronic hyponatremia, cervical spine degeneration presents here with abdominal pain - epigastric and RUQ pain in particular. CT abdomen/pelvis performed showing Abnormal soft tissue density abutting the superior mesenteric artery which is new since CT of March 12, 2016 Her lipase was elevated > 900, she was to be on LR @ 150mL/hr and started on clears. As per GI, they did not agree with discharge planning for today; recommended EUS. I saw the patient in room 362; she was calm and pleasant, but stated that she wanted to leave no matter what today. I told her that the trimming department blocker did not recommend her being discharged today, but she insisted. She had some jello for lunch which she tolerated. There is mild tenderness in the epigastric region. Received a phone call that patient would sign out against medical advice. She was told about consequences of signing out. She was told that she needed another CT of the abdomen in a month; outpatient f/u with Tripp Montemayor for possible EUS as outpatient. Should have blood work done to f/u on LFTs as outpatient as well.
--- NOTE | 2017-02-24 16:56 | Discharge Summary ---
Discharge Summary Date of Service Feb 24, 2017. Discharge Summary Admission Date: Feb 24, 2017 at 06:22 Principal Diagnosis: Alcohol Abuse, Alcoholic Pancreatitis Common Bile Duct Dilatation Abnormal CT findings of the SMA Admission Information HPI (per Admitting provider): Patient is a 56 yr old female with PMH of Alcohol abuse disorder, alcoholic pancreatitis, depression, COPD, tobacco abuse, chronic gastritis, cervical spine degeneration, chronic hyponatremia, GERD presents with history of worsening abdominal pain since one day duration. States having epigastric and RUQ abdominal pain radiating to right flank region, Sharp, 10/10 intensity, constant, no aggravating/relieving factors, associated with nausea, vomiting. States having similar pain previously from pancreatitis and admits to drinking alcohol yesterday. Also states having poor appetite, intermittent chills and diaphoresis since 2 days. Denies any fever, SOB, chest pain, palpitations, dizziness, diarrhea, increased urinary frequency, wheezing. States having chronic cough with clear expectoration. Physical Exam (per Admitting): General Appearance: + mild distress, + thin Head: normocephalic, atraumatic Eyes: normal inspection, PERRL, EOMI ENT: normal ENT inspection, hearing grossly normal Neck: supple, trachea midline Respiratory/Chest: chest non-tender, lungs clear, no respiratory distress, no accessory muscle use, + decreased breath sounds Cardiovascular: regular rate, rhythm, no edema, no murmur, + tachycardia Abdomen/GI: normal bowel sounds, soft, + pertinent finding (RUQ and Epigastric tenderness, voluntary guarding) Back: normal inspection Extremities/Musculoskelatal: normal inspection, no calf tenderness, no pedal edema 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 CT abdomen/pelvis performed showing Abnormal soft tissue density abutting the superior mesenteric artery which is new since CT of March 12, 2016 Her lipase was elevated > 900, she was to be on LR @ 150mL/hr and started on clears. As per GI, they did not agree with discharge planning for today; recommended EUS. I saw the patient in room 362; she was calm and pleasant, but stated that she wanted to leave no matter what today. I told her that the clinical informatics physician did not recommend her being discharged today, but she insisted. She had some jello for lunch which she tolerated. There is mild tenderness in the epigastric region. Received a phone call that patient would sign out against medical advice. She was told about consequences of signing out. She was told that she needed another CT of the abdomen in a month; outpatient f/u with Tripp Montemayor for possible EUS as outpatient. Should have blood work done to f/u on LFTs as outpatient as well. Total time spent on discharge = 20 minutes This includes examination of the patient, discharge planning, medication reconciliation, and communication with other providers. Discharge Instructions Patient should follow-up with GI as outpatient EUS as outpatient LFTs as outpatient repeat CT abdomen in one month to f/u on abnormal density around superior mesenteric artery Additional Copies To Aris Llamas MD; Tripp Montemayor C.R.N.P.
[2017-02-24] MEDS ORDERED: MIRTAZAPINE TAB 15 MG TAB PO SCH (21:00)
[2017-03-07] MEDS ORDERED: NCDT14 TD (17:47)
[2017-03-15] MEDS ORDERED: UMEC1AER INH (00:41)
[2017-03-15] MEDS ORDERED: RABE20TA5 PO (00:41)
[2017-03-31] MEDS ORDERED: ASPI81TA28 PO (15:46)
[2017-03-31] MEDS ORDERED: UMEC1AER INH (16:16)
[2017-03-31] MEDS ORDERED: PREDPOW63 PO (16:16)
[2017-05-27] MEDS ORDERED: UMEC1AER INH (11:38)
[2017-05-27] MEDS ORDERED: PRLSR20 PO (11:38)
== END 2017-02-24 16:50 | disposition left against medical advice (07) | DRG 439 ==
LOC: ENRESERVTM → ENRESERVDT → C.EDB 03:28 → C.MSW 06:22
PROVIDERS: ADMIT Internal Medicine; ATTEND Family Medicine
DX: K85.20 Alcohol induced acute pancreatitis without necrosis or infection (principal); E87.1 Hypo-osmolality and hyponatremia; F10.188 Alcohol abuse with other alcohol-induced disorder; F17.210 Nicotine dependence, cigarettes, uncomplicated; F32.9 Major depressive disorder, single episode, unspecified; K21.9 Gastro-esophageal reflux disease without esophagitis; Z87.11 Personal history of peptic ulcer disease; Z88.5 Allergy status to narcotic agent; Z88.2 Allergy status to sulfonamides; Z99.81 Dependence on supplemental oxygen; Z79.899 Other long term (current) drug therapy; K86.0 Alcohol-induced chronic pancreatitis; G89.29 Other chronic pain; M54.2 Cervicalgia; M54.9 Dorsalgia, unspecified; J44.9 Chronic obstructive pulmonary disease, unspecified; M81.0 Age-related osteoporosis without current pathological fracture; Z90.49 Acquired absence of other specified parts of digestive tract; Z80.8 Family history of malignant neoplasm of other organs or systems; Z87.19 Personal history of other diseases of the digestive system

== ENCOUNTER 2017-03-05 23:23 | Inpatient (IN) | payer OTHER ==
[~2017-03-05] VITALS: Ht 165.1 cm; Wt 39.0 kg
[~2017-03-05 23:23] MED LIST changes: -DOXY100C2 PO
[2017-03-05] MEDS ORDERED: HYDROmorphone INJ 0.5 MG/0.5 ML SYR IV STA (23:35)
[2017-03-05 23:44] LABS: BASO % 0.5 %; BASO ABS # 0.03 K/uL (0-0.2); EOS % 1.1 %; HEMATOCRIT 43.8 % (37-47); IG% 0.3 %; LYMPH % 20.6 %; LYMPH ABS # 1.33 K/uL (1.2-3.4); MEAN CORPUSCULAR HEMOGLOBIN 40.5 pg (25-34); MEAN PLATELET VOLUME 8.7 fL (7.4-10.4); MONO % 6.8 %; NEUT % 70.7 %; PLATELET COUNT 254 K/uL (130-400); RED BLOOD COUNT 3.68 M/uL (4.2-5.4); WHITE BLOOD COUNT 6.45 K/uL (4.8-10.8)
--- NOTE | 2017-03-05 23:45 | EMERGENCY ROOM VISIT NOTE ---
History Report prepared by Belkys: Linda Croew Under the Supervision of: Dr. Emely Otoole D.O. First contact with patient: 23:26 Chief Complaint: CARDIAC ASSESSMENT Stated Complaint: EPIASTRIC PAIN/CHEST DISCOMFORT History of Present Illness The patient is a 56 year old female who presents to the Emergency Room with complaints of persistent epigastric abdominal pain that began around 2100 this evening. The patient states that this evening she developed severe epigastric abdominal pain. She notes that she has a history of COPD and pancreatitis. The patient states that she drank half of a beer this evening and notes that her pancreatitis is from drinking alcohol. She states that she still smokes cigarettes. The patient states that she wears 2 liters of supplemental oxygen chronically. She denies any cardiac history. The patient additionally notes chest pain and breathing difficulties with her symptoms today. She notes a history of back and neck surgeries, noting that she takes pain medications at home. The patient states that her last dose was this morning. 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 EMS reports that they gave the patient aspirin prior to arrival without relief of her symptoms. Source of History: patient Onset: 2100 this evening Position: abdomen (epigastric) Timing: other (persistent) Associated Symptoms: + SOB (breathing difficulties), + chest pain Review of Systems See HPI for pertinent positives & negatives. A total of 10 systems reviewed and were otherwise negative. Past Medical & Surgical Medical Problems: (1) Abdominal pain (2) ABN LIVER FUNCTION STUDY (3) Back pain (4) Terrell's palsy (5) Chest pain (6) CHRONIC OBSTRUCTIVE ASTHMA, NOS (7) COPD (chronic obstructive pulmonary disease) (8) DEPRESSIVE DISORDER NEC (9) EMPHYSEMA NEC (10) GERD (gastroesophageal reflux disease) (11) Osteoporosis (12) Pancreatitis (13) Pancreatitis (14) Stomach ulcer (15) TOBACCO USE DISORDER (16) Ulcer Surgical Problems: (1) H/o lumbar spinal surgery (2) H/O tubal ligation (3) History of appendectomy (4) History of carpal tunnel release (5) History of cholecystectomy (6) Hx of appendectomy (7) Hx of cholecystectomy (8) S/p EGD (9) S/p placement of lumbar electrical stimulator Family History Blood clots FH: colon cancer Social History Smoking Status: Current Every Day Smoker Alcohol Use: occasionally, other Drug Use: none Marital Status: Housing Status: lives with family Occupation Status: unemployed Current/Historical Medications Scheduled Albuterol Sulf (Proventil 0.083% 2.5MG/3ML), 2.5 MG INH DIRECTED Calcium Carbonate-Cholecalcife (Oysco 500+D), 1 TAB PO DAILY Docusate Sodium (Docusate Sodium), 1 CAP PO BID Ipratropium-Albuterol (Combivent Respimat), 1 PUFF INH QID Lidocaine (Lidoderm Patch 5%), 1 PATCH TOP DAILY Loratadine (Claritin), 10 MG PO DAILY Lorazepam (Ativan), 0.5 MG PO HS Mirtazapine (Remeron), 15 MG PO HS Oxycodone HCl (Oxycontin), 40 MG PO Q12 Oxycodone Hcl (Oxycontin), 60 MG PO Q12 Oxygen (Oxygen), 2 LITERS NA HS Rabeprazole Sodium (Aciphex), 20 MG PO BID Ranitidine (Zantac), 150 MG PO BID Scheduled PRN Albuterol Hfa (Ventolin Hfa), 2 PUFFS INH Q6H PRN for SOB/Wheezing Carisoprodol (Soma), 350 MG PO DAILY PRN for Muscle Spasm Oxycodone HCl (Oxycodone HCl), 5 MG PO Q4H PRN for Pain Zolpidem Tartrate (Ambien), 5 MG PO HS PRN for Sleep Allergies Coded Allergies: Morphine (Verified Allergy, Intermediate, hives, 03/05/17) Penicillins (Verified Allergy, Unknown, ., 03/05/17) Sulfa Antibiotics (Verified Allergy, Unknown, PERIORBITAL EDEMA, 03/05/17) Physical Exam Vital Signs Date Time Temp Pulse Resp B/P Pulse Ox O2 Delivery O2 Flow Rate FiO2 03/06/17 01:00 142/78 03/06/17 00:58 83 22 100 Nasal Cannula 2.0 03/06/17 00:53 87 20 100 Nasal Cannula 2.0 03/06/17 00:30 148/86 03/06/17 00:23 82 21 100 Nasal Cannula 2.0 03/06/17 00:00 138/82 03/05/17 23:53 85 18 96 Nasal Cannula 2.0 03/05/17 23:48 133/82 03/05/17 23:38 87 03/05/17 23:29 126/84 03/05/17 23:23 100 Nasal Cannula 2.0 03/05/17 23:23 36.7 88 19 126/84 98 Nasal Cannula 2.0 03/05/17 23:23 100 Nasal Cannula 2.0 Physical Exam HEENT: Head - normocephalic and atraumatic Pupils are equal, round, and reactive to light. Extraocular eye muscles are intact, and sclera are anicteric. Nose - moist nasal mucosa without discharge. Mouth - moist buccal mucosa. Oropharynx is nonerythematous and there is no tonsillar exudate or edema noted. Neck: Supple; no JVD, nuchal rigidity, cervical lymphadenopathy. Heart: Regular rate and rhythm. There is a normal S1 and S2 with no murmurs, clicks, or gallops appreciated. Lungs: Clear to auscultation bilaterally with no wheezes, rales, or rhonchi. Abdomen: Severe epigastric tenderness to palpation. Soft, nondistended, with good bowel sounds. There are no palpable pulsatile masses or hepatosplenomegaly. There is no guarding, rigidity, or rebound noted. Extremities: Excoriated areas to the legs and arms. No evidence of cyanosis, clubbing, or edema. There are easily palpable peripheral pulses. Skin: warm and dry with good turgor and no rashes. Neuro: Obvious Buffalo Palsy to the right side of the face. Medical Decision & Procedures ER Provider Diagnostic Interpretation: 1 view chest x-ray: no cardiomegaly, no pulmonary infiltrates or consolidation. Laboratory Results Test 03/05/17 23:10 RDW Standard Deviation 51.2 fL (36.4-46.3) RDW Coefficient of Variation 11.8 % (11.5-14.5) White Blood Count 6.45 K/uL (4.8-10.8) Red Blood Count 3.68 M/uL (4.2-5.4) Hemoglobin 14.9 g/dL (12.0-16.0) Hematocrit 43.8 % (37-47) Mean Corpuscular Volume 119.0 fL (80-100) Mean Corpuscular Hemoglobin 40.5 pg (25-34) Mean Corpuscular Hemoglobin Concent 34.0 g/dl (32-36) Platelet Count 254 K/uL (130-400) Mean Platelet Volume 8.7 fL (7.4-10.4) Neutrophils (%) (Auto) 70.7 % Lymphocytes (%) (Auto) 20.6 % Monocytes (%) (Auto) 6.8 % Eosinophils (%) (Auto) 1.1 % Basophils (%) (Auto) 0.5 % Neutrophils # (Auto) 4.56 K/uL (1.4-6.5) Lymphocytes # (Auto) 1.33 K/uL (1.2-3.4) Monocytes # (Auto) 0.44 K/uL (0.11-0.59) Eosinophils # (Auto) 0.07 K/uL (0-0.5) Basophils # (Auto) 0.03 K/uL (0-0.2) Immature Granulocyte % (Auto) 0.3 % Immature Granulocyte # (Auto) 0.02 K/uL (0.00-0.02) Hyposegmented Neutrophils 1+ Macrocytosis PRESENT Tear Drop Cells 1+ Prothrombin Time 10.7 SECONDS (9.0-12.0) Prothromb Time International Ratio 1.0 (0.9-1.1) Est Creatinine Clear Calc Drug Dose 78.6 ml/min Magnesium Level 2.0 mg/dl (1.8-2.4) Direct Bilirubin 0.3 mg/dl (0-0.2) Total Creatine Kinase 57 U/L (26-192) Creatine Kinase MB 0.9 ng/ml (0.5-3.6) Creatine Kinase MB Ratio 1.6 (0-3.0) Troponin I < 0.015 ng/ml (0-0.045) Laboratory results per my review. Medications Administered Medications (Trade) Dose Ordered Sig/Jonathon Route Start Time Stop Time Status Last Admin Dose Admin Hydromorphone HCl (Dilaudid Inj) 0.5 mg NOW STAT IV 03/05/17 23:35 03/05/17 23:36 DC 03/05/17 23:46 0.5 MG Ondansetron HCl 2 mg 2 mg NOW STAT IV 03/06/17 00:04 03/06/17 00:05 DC 03/06/17 00:16 2 MG Sodium Chloride (Nss 1000ml) 1,000 ml @ 250 mls/hr Q4H STAT IV 03/06/17 00:46 03/06/17 01:17 DC 03/06/17 00:54 250 MLS/HR Hydromorphone HCl 0.5 mg 0.5 mg NOW STAT IV 03/06/17 00:46 03/06/17 00:48 DC 03/06/17 00:54 0.5 MG Multivitamins/ Thiamine HCl/ Folic Acid/Sodium Chloride (Mvi Infusion Inj/Vitamin B-1 Inj/Folvite Inj/ Nss 1000ml) 1,011.2 ml @ 500 mls/ hr Q2H2M ONCE IV 03/06/17 01:15 03/06/17 03:16 DC 03/06/17 01:44 500 MLS/HR Procedure The patient was treated with Dilaudid Inj 0.5 mg IV, Zofran Inj 2 mg IV, Dilaudid Inj 0.5 mg IV, Sodium Chloride 1000 ml @ 250 mls/hr IV. ECG Indication: abdominal pain Rate (beats per minute): 83 Rhythm: normal sinus Findings: no acute ischemic change, no ectopy ED Course 2330: Past medical records reviewed. The patient was evaluated in room A2. A complete history and physical exam was performed. Laboratory studies were drawn as above. The patient had a twelve-lead EKG and chest x-ray as described above. 2335: Ordered Dilaudid Inj 0.5 mg IV. 0004: Ordered Zofran Inj 2 mg IV. 0046: She continues to complain of epigastric pain. I Ordered Dilaudid Inj 0.5 mg IV, Sodium Chloride 1000 ml @ 250 mls/hr IV. 0104: I reevaluated the patient and she is resting. I discussed the exam findings with her and I discussed the treatment plan. She verbalized complete understanding and agreement. She is going to be evaluated for further treatment. 0105: I discussed the patients case with Maira Parr. He is going to evaluate the patient for further treatment. Medical Decision The patient is a 56 year old female who presents to the ED with epigastric abdominal pain. Differential diagnosis includes pancreatitis, ACS, COPD exacerbation, GERD. Lab interpretation: no leukocytosis, stable H&H, normal renal function, glucose 131, lipase 1605, negative cardiac enzymes, direct bilirubin 0.3, AST 413, ALT 220, Alk-Phos >900. This patient presents to the emergency department with increasing epigastric abdominal pain and chest pain. The patient does have history of pancreatitis and did drink some alcohol tonight. Her lipase was elevated at 1605. Her physical exam findings are consistent with an episode of acute pancreatitis. I discussed the case with the [facility] Hospitalist and they will evaluate for further management. Consults Time Called: 102 Consulting Physician: Maira Parr Returned Call: [phone] I discussed the patients case with Maira Parr. He is going to evaluate the patient for further treatment. Impression Primary Impression: Pancreatitis Scribe Attestation The scribe's documentation has been prepared under my direction and personally reviewed by me in its entirety. I confirm that the note above accurately reflects all work, treatment, procedures, and medical decision making performed by me. Departure Information Dispostion Being Evaluated By Hospitalist Marcelo Ayon M.D. (PCP)
[2017-03-05] MEDS ORDERED: NF656 TOP (23:49)
[2017-03-06] VITALS (8 sets, daily range): BP systolic 96–135; BP diastolic 63–83; PULSE 77–104; TEMP 36.3–36.8; O2SAT 77–96; Ht 165.1 cm; Wt 39.0 kg
[2017-03-06] MEDS ORDERED: ONDANSETRON INJ 2 MG/ML 2 ML VIAL IV STA (00:04)
[2017-03-06 00:08] LABS: ALT/SGPT 220 U/L (12-78); AST/SGOT 413 U/L (15-37); BLOOD UREA NITROGEN 7 mg/dl (7-18); BUN/CREATININE RATIO 13.6 (10-20); CALCIUM 9.2 mg/dl (8.5-10.1); CARBON DIOXIDE 27 mmol/L (21-32); CHLORIDE 99 mmol/L (98-107); GLUCOSE 131 mg/dl (70-99); POTASSIUM 4.1 mmol/L (3.5-5.1); SODIUM 136 mmol/L (136-145)
[2017-03-06 00:23] LABS: ALKALINE PHOSPHATASE 962 U/L (45-117); CKMB/CK RATIO 1.6 (0-3.0)
[2017-03-06 00:33] LABS: COMPLETE YES; HYPOSEGMENTED POLYS 1+; TEAR DROP CELLS 1+
[2017-03-06] MEDS ORDERED: HYDROmorphone INJ 0.5 MG/0.5 ML SYR IV STA (00:46)
[2017-03-06] MEDS ORDERED: SODIUM CHLORIDE 0.9% 1000ML 1,000 ML IV STA (00:46)
[2017-03-06] MEDS ORDERED: MULTI-VITAMIN INFUSION INJ 10 ML, THIAMINE HCL INJ 100 MG, FoLIC ACID INJ 1 MG in SODIU... IV ONE (01:15)
[2017-03-06] MEDS ORDERED: OXYCODONE HCL 20 MG TABCR (OXYCONTIN) PO ONE ×2 (01:41)
[2017-03-06] MEDS ORDERED: HYDROmorphone INJ 0.5 MG/0.5 ML SYR IV PRN (01:45)
[2017-03-06] MEDS ORDERED: KETOROLAC TROMETHAMINE 15 MG/ML VIAL IV. PRN (01:45)
[2017-03-06] MEDS ORDERED: MIRTAZAPINE TAB 15 MG TAB PO PRN (01:45)
[2017-03-06] MEDS ORDERED: ONDANSETRON INJ 2 MG/ML 2 ML VIAL IV PRN (01:45)
[2017-03-06] MEDS ORDERED: ALBUT/IPRATROP 3MG/0.5MG NEB 3 ML VIAL INH PRN (01:45)
[2017-03-06] MEDS ORDERED: ZOLPIDEM TARTRATE 5 MG TAB PO PRN (01:45)
[2017-03-06] MEDS ORDERED: LORAZEPAM 2 MG/ML 1 ML VIAL IV PRN ×2 (01:45)
[2017-03-06 01:50] LABS: PROTHROMBIN TIME (PATIENT) 10.7 SECONDS (9.0-12.0)
[2017-03-06] MEDS ORDERED: GABAPENTIN 800 MG TAB PO STA (02:50)
--- NOTE | 2017-03-06 02:55 | HISTORY & PHYSICAL EXAMINATION ---
DATE OF ADMISSION: 03/05/2017 PRIMARY CARE DOCTOR: Dr. Epps History obtained from patient and records. CHIEF COMPLAINT: Abdominal pain. HISTORY OF PRESENT ILLNESS: Medical history is significant for COPD, ongoing tobacco abuse, recurrent pancreatitis, ongoing ETOH abuse, chronic pain on narcotics. Recent confinement was in last week for alcoholic pancreatitis. CT of the abdomen and pelvis at that time showed an abnormal soft tissue density abutting the superior mesenteric artery, new since February 2016. CT abdomen; pancreas protocol in one month is recommended. Patient was seen by GI. Consideration for outpatient endoscopic ultrasound as patient may not be able to undergo ERCP due to orthopedic hardware. Patient signed out against medical advice. Started drinking a little again yesterday, Px subsequently achy epigastric pain going to the chest w/ nausea and emesis. No fever, no chills. Usual shortness of breath on exertion. Cough symptoms productive of white sputum. MEDICAL HISTORY: As above. SURGERIES: She has had a cholecystectomy, back surgery, tubal ligation, appendectomy, carpal tunnel surgery, spine stimulator. HOME MEDICATIONS: Include; OxyContin, AcipHex, Zantac, Ambien, lidocaine, Ativan, Claritin, Remeron, Ambien, albuterol, Soma, docusate sodium and Combivent. ALLERGIES: TO MORPHINE, PENICILLIN AND SULFA. FAMILY HISTORY: Colon cancer and blood clots. PERSONAL AND SOCIAL HISTORY: Half pack daily. Regular alcohol intake. Disabled. REVIEW OF SYSTEMS: As per HPI. All other ROS negative. PHYSICAL EXAMINATION: VITAL SIGNS: Blood pressure was noted to be 138/82, pulse rate 87, RR 20, T 37 sats 98 on room air. GENERAL: Noted to be hyposthenic. No respiratory distress. SKIN: Normal color. HEENT: Chronic facial asymmetry. NECK: No JVD. supple CHEST: Decreased breath sounds. HEART: Regular rate and rhythm. ABDOMEN: Epigastric tenderness. EXTREMITIES: No edema. no tenderness NEUROLOGIC: No gross focality except for old facial asymmetry. LABORATORIES: Hemoglobin 14.9, hematocrit 40, white cell count 6.4 and platelets 254. Sodium 136, potassium 4.9, chloride 99, CO2 27, BUN 70, creatinine 1.1 glucose 131. AST 413 and ALT 220. Alkaline phosphatase 962 and lipase 1605. trop 0 EKG as per my interpretation : rate=80, NSR, no ischemia CXR emphysema ASSESSMENT: 1. Recurrent pancreatitis ongoing alcohol abuse 2. chronic obstructive pulmonary disease, ongoing tobacco abuse. No issues except for cough symptoms productive of white sputum breathing status at baseline as per patient 3.. malnutrition (low body mass index) 4. Chronic pain on narcotics. PLAN: GMF analgesia, IV fluids. bowel rest for now GI consult RE recurrent pancreatitis. Nutrition consult RE low BMI. DT precautions. Nicotine patch. DVT prophylaxis, Lovenox subQ. Full code. MTDD
[2017-03-06] MEDS ORDERED: LORAZEPAM INJ 0.5 MG in SYRINGE 0.25 ML IV PRN ×2 (03:00→03:15)
[2017-03-06] MEDS ORDERED: LORAZEPAM INJ 1 MG in SYRINGE 0.5 ML IV PRN (03:15)
[2017-03-06] MEDS ORDERED: LORAZEPAM INJ 0.5 MG in SYRINGE 0.75 ML IV PRN (03:15)
[2017-03-06] MEDS: LACTATED RINGER'S 1000ML 1,000 ML IV SCH ×4 (03:44→22:52)
[2017-03-06] MEDS: HEPARIN SOD 5000 UNIT/0.5 ML CARP SQ SCH ×3 (05:15→20:55)
[2017-03-06] MEDS: ACETAMINOPHEN 325 MG TAB PO PRN (05:20)
[2017-03-06 06:25] LABS: BASO ABS # 0.06 K/uL (0-0.2); EOS % 2.7 %; HEMATOCRIT 39.4 % (37-47); IG% 0.3 %; LYMPH % 35.7 %; LYMPH ABS # 2.25 K/uL (1.2-3.4); MEAN CORPUSCULAR HEMOGLOBIN 39.9 pg (25-34); MEAN CORPUSCULAR HGB CONC 33.5 g/dl (32-36); MEAN PLATELET VOLUME 8.5 fL (7.4-10.4); MONO % 5.5 %; NEUT % 54.8 %; PLATELET COUNT 228 K/uL (130-400); RED BLOOD COUNT 3.31 M/uL (4.2-5.4); WHITE BLOOD COUNT 6.31 K/uL (4.8-10.8)
--- NOTE | 2017-03-06 06:25 | DIAGNOSTIC IMAGING REPORT ---
CHEST ONE VIEW PORTABLE CLINICAL HISTORY: Atypical chest pain shortness of breath COMPARISON STUDY: 12/20/2016 FINDINGS: The cardiac and mediastinal contours are normal. There is no evidence of focal pulmonary consolidation. There is no evidence of failure. No pleural effusions are visualized.[ IMPRESSION: No active disease in the chest. Electronically signed by: Patrice Gomes M.D. 03/06/2017 6:23 AM Dictated Date/Time: 03/06/2017 6:23 AM
[2017-03-06 06:54] LABS: BUN/CREATININE RATIO 11.3 (10-20); CALCIUM 8.3 mg/dl (8.5-10.1); CREATININE 0.4 mg/dl (0.60-1.20); POTASSIUM 4.5 mmol/L (3.5-5.1)
[2017-03-06 07:03] LABS: ALB/GLOB RATIO 1.1 (0.9-2)
[2017-03-06 07:23] LABS: COMPLETE YES
[2017-03-06] MEDS ORDERED: OXYCODONE HCL 40 MG TABCR (OXYCONTIN) PO SCH (09:00)
[2017-03-06] MEDS: LORATADINE 10 MG TAB PO SCH (09:15)
[2017-03-06] MEDS: OXYCODONE HCL 20 MG TABCR (OXYCONTIN) PO SCH ×2 (09:15→20:53)
[2017-03-06] MEDS: NICOTINE 14 MG/24 HR TDSY TD SCH (09:16)
[2017-03-06] MEDS: RANITIDINE HCL 150 MG TAB PO SCH ×2 (09:16→20:53)
[2017-03-06] MEDS: PANTOprazole SOD 40 MG TAB PO SCH ×2 (09:17→20:53)
[2017-03-06] MEDS: DOCUSATE SODIUM 100 MG CAP PO SCH ×2 (09:17→20:53)
[2017-03-06] MEDS: GABAPENTIN 400 MG CAP PO SCH ×3 (09:18→23:32)
[2017-03-06] MEDS: LIDODERM (LIDOCAINE) PATCH 5% TD SCH (09:20)
[2017-03-06] MEDS: IPRATROPIUM BROMIDE/ALBUTEROL respimat INH INH SCH ×4 (09:41→20:51)
[2017-03-06] MEDS: HYDROmorphone INJ 1 MG/ML SYR IV PRN ×2 (12:23→19:32)
--- NOTE | 2017-03-06 12:52 | Progress Note ---
Internal Med Progress Note Date of Service: March 06, 2017. Provider Documentation: SUBJECTIVE: The patient was seen and examined Complains of mild abdominal pain No nausea and or vomiting OBJECTIVE: Vital Signs-as noted below Exam: General-No distress at rest Eyes-normal ENT-normal Neck-supple Lungs-Clear to auscultate bilaterally Heart-Regular,no murmur appreciated Abdomen-Benign,no masses,bowel sound present Extremities-NO edema Neuro-AAOx3 No focal neuro deficit Lab data as noted below. ASSESSMENT & PLAN: Recurrent pancreatitis Secondary ongoing alcohol abuse NPO,analgesia, IV fluids. Bowel rest for now GI consult RE recurrent pancreatitis. DT precautions. Nicotine patch. Clinically a little better Lipase is improving Chronic obstructive pulmonary disease, ongoing tobacco abuse. No issues except for cough symptoms productive of white sputum Status at baseline as per patient Malnutrition (low body mass index) Nutrition consult RE low BMI. Chronic pain on narcotics. DVT prophylaxis, Lovenox subQ. Full code. DISPOSITION Likely home tomorrow Vital Signs: Date Time Temp Pulse Resp B/P Pulse Ox O2 Delivery O2 Flow Rate FiO2 03/06/17 12:20 92 Nasal Cannula 2.0 03/06/17 12:20 36.7 99 18 96/63 77 Room Air 03/06/17 08:00 Room Air 03/06/17 07:06 36.3 77 18 99/65 96 Nasal Cannula 1.0 03/06/17 03:30 Nasal Cannula 2.0 03/06/17 02:35 36.4 84 15 135/83 94 Room Air 03/06/17 02:24 100 03/06/17 02:00 154/87 03/06/17 01:35 87 19 100 Nasal Cannula 2.0 03/06/17 01:30 152/82 03/06/17 01:28 84 23 100 Nasal Cannula 2.0 03/06/17 01:00 142/78 03/06/17 00:58 83 22 100 Nasal Cannula 2.0 03/06/17 00:53 87 20 100 Nasal Cannula 2.0 03/06/17 00:30 148/86 03/06/17 00:23 82 21 100 Nasal Cannula 2.0 03/06/17 00:00 138/82 03/05/17 23:53 85 18 96 Nasal Cannula 2.0 03/05/17 23:48 133/82 03/05/17 23:38 87 03/05/17 23:29 126/84 03/05/17 23:23 100 Nasal Cannula 2.0 03/05/17 23:23 36.7 88 19 126/84 98 Nasal Cannula 2.0 03/05/17 23:23 100 Nasal Cannula 2.0 Lab Results: Results Past 24 Hours Test 03/05/17 23:10 03/06/17 01:42 03/06/17 06:05 Range/Units White Blood Count 6.45 6.31 4.8-10.8 K/uL Red Blood Count 3.68 3.31 4.2-5.4 M/uL Hemoglobin 14.9 13.2 12.0-16.0 g/dL Hematocrit 43.8 39.4 37-47 % Mean Corpuscular Volume 119.0 119.0 80-100 fL Mean Corpuscular Hemoglobin 40.5 39.9 25-34 pg Mean Corpuscular Hemoglobin Concent 34.0 33.5 32-36 g/dl Platelet Count 254 228 130-400 K/uL Mean Platelet Volume 8.7 8.5 7.4-10.4 fL Neutrophils (%) (Auto) 70.7 54.8 % Lymphocytes (%) (Auto) 20.6 35.7 % Monocytes (%) (Auto) 6.8 5.5 % Eosinophils (%) (Auto) 1.1 2.7 % Basophils (%) (Auto) 0.5 1.0 % Neutrophils # (Auto) 4.56 3.46 1.4-6.5 K/uL Lymphocytes # (Auto) 1.33 2.25 1.2-3.4 K/uL Monocytes # (Auto) 0.44 0.35 0.11-0.59 K/uL Eosinophils # (Auto) 0.07 0.17 0-0.5 K/uL Basophils # (Auto) 0.03 0.06 0-0.2 K/uL RDW Standard Deviation 51.2 50.2 36.4-46.3 fL RDW Coefficient of Variation 11.8 11.6 11.5-14.5 % Immature Granulocyte % (Auto) 0.3 0.3 % Immature Granulocyte # (Auto) 0.02 0.02 0.00-0.02 K/uL Hyposegmented Neutrophils 1+ Macrocytosis PRESENT PRESENT Tear Drop Cells 1+ Prothrombin Time 10.7 9.0-12.0 SECONDS Prothromb Time International Ratio 1.0 0.9-1.1 Sodium Level 136 139 136-145 mmol/L Potassium Level 4.1 4.5 3.5-5.1 mmol/L Chloride Level 99 107 98-107 mmol/L Carbon Dioxide Level 27 26 21-32 mmol/L Anion Gap 10.0 6.0 3-11 mmol/L Blood Urea Nitrogen 7 5 7-18 mg/dl Creatinine 0.50 0.40 0.60-1.20 mg/dl Est Creatinine Clear Calc Drug Dose 78.6 99.0 ml/min Estimated GFR () 127.2 136.9 Estimated GFR (Non- 109.7 118.1 BUN/Creatinine Ratio 13.6 11.3 10-20 Random Glucose 131 91 70-99 mg/dl Calcium Level 9.2 8.3 8.5-10.1 mg/dl Magnesium Level 2.0 1.8-2.4 mg/dl Total Bilirubin 0.5 0.7 0.2-1 mg/dl Direct Bilirubin 0.3 0-0.2 mg/dl Aspartate Amino Transf (AST/SGOT) 413 205 15-37 U/L Alanine Aminotransferase (ALT/SGPT) 220 144 12-78 U/L Alkaline Phosphatase 962 808 45-117 U/L Total Creatine Kinase 57 26-192 U/L Creatine Kinase MB 0.9 0.5-3.6 ng/ml Creatine Kinase MB Ratio 1.6 0-3.0 Troponin I < 0.015 0-0.045 ng/ml Total Protein 7.6 6.1 6.4-8.2 gm/dl Albumin 4.0 3.2 3.4-5.0 gm/dl Lipase 1605 1008 73-393 U/L Ethyl Alcohol mg/dL < 3.0 0-3 mg/dl Globulin 2.9 2.5-4.0 gm/dl Albumin/Globulin Ratio 1.1 0.9-2
--- NOTE | 2017-03-06 15:04 | Gastrointestinal Consultation ---
Gastrointestinal Consultation Date of Consultation: March 06, 2017 Attending Physician: Dr. Lloyd Consulting Physician: Dr. Sotelo Reason for Consultation: recurrent alcoholic pancreatitis History of Present Illness Patient is a 56 year old female with COPD, chronic back pain on chronic narcotics, as well as a long standing history of alcoholism and multiple admissions for ETOH pancreatitis. She was recently admitted earlier this month for acute ETOH pancreatitis but signed out AMA. She presented again last night with complaints of epigastric pain, nausea and vomiting. Admits she continues to drink ETOH. Labs on admission are significant for lipast 1500 as well as AST /ALT elevation in 2:1 pattern. She was started on IVF and bowel rest. She is angry because she can not et and threatening again to sign out AMA. She tells me she does not want to stop drinking. Smokes 2 PPD as well. She had a CT done during her last hospitalization which showed an abnormal non-specific soft tissue density abutting the SMA (new from scan in 2016). She was to be scheduled for an outpatient EUS. Currently mad because she is NPO. Eating crackers with a family member. Continues to complain of pain in her abdomen and back. No fevers. Past Medical/Surgical History Medical Problems: (1) Abnormal liver function test Status: Acute (2) Chest pain Status: Acute (3) COPD exacerbation Status: Acute (4) Gastritis Status: Acute (5) Pancreatitis Status: Chronic (6) Pancreatitis Status: Acute (7) Pancreatitis, acute Status: Acute (8) Right upper quadrant abdominal pain Status: Acute Past Medical History: as noted in problem list Past Surgical History: edmar; back surgery Family History Blood clots FH: colon cancer non-contributory Social History Smoking Status: Current Every Day Smoker Alcohol Use: occasionally, heavy Drug Use: none Marital Status: Housing Status: lives with family Occupation Status: unemployed Allergies Coded Allergies: Morphine (Verified Allergy, Intermediate, hives, 03/05/17) Penicillins (Verified Allergy, Unknown, ., 03/05/17) Sulfa Antibiotics (Verified Allergy, Unknown, PERIORBITAL EDEMA, 03/05/17) Current Medications Home Meds and Scripts Medications Dose Route/Sig Max Daily Dose Days Date Category Dose Instructions Lidoderm Patch 5% (Lidocaine) 1 Ea Tdsy 1 Patch TOP DAILY 03/05/17 Reported Ventolin Hfa (Albuterol) 200 Puffs/78852 Mcg Aers 2 Puffs INH Q6H PRN 12/20/16 Reported Proventil 0.083% 2.5MG/3ML (Albuterol Sulf) 2.5 Mg/3 Ml Nebu 2.5 Mg INH DIRECTED 12/20/16 Reported Zantac (Ranitidine HCl) 150 Mg Tab 150 Mg PO BID 03/23/16 Reported Oxygen Gas 2 Liters NA HS 09/17/15 Reported Oysco 500+D (Calcium Carbonate-Cholecalcife) 1 Chw Chw 1 Tab PO DAILY 09/17/15 Reported Docusate Sodium 100 Mg Cap 1 Cap PO BID 15 09/17/15 Reported Ativan (Lorazepam) 0.5 Mg Tab 0.5 Mg PO HS 09/17/15 Reported Remeron (Mirtazapine) 15 Mg Tab 15 Mg PO HS 11/14/14 Reported Soma (Carisoprodol) 350 Mg Tab 350 Mg PO DAILY PRN 11/14/14 Reported Oxycodone HCl 5 Mg Tab 5 Mg PO Q4H PRN 11/14/14 Reported MAX= 6 TABLETS DAILY. Oxycontin (Oxycodone HCl) 40 Mg Tabcr 40 Mg PO Q12 11/14/14 Reported TAKE ONE 40 MG TABLET ALONG WITH ONE 60 MG TABLET TO EQUAL 100 MG DOSE. Combivent Respimat (Ipratropium-Albuterol) 1 Aer Aer 1 Puff INH QID 03/10/14 Reported Aciphex (Rabeprazole Sodium) 20 Mg Tab 20 Mg PO BID 03/10/14 Reported Claritin (Loratadine) 10 Mg Tab 10 Mg PO DAILY 03/10/14 Reported Oxycontin (Oxycodone Hcl) 60 Mg Tab 60 Mg PO Q12 07/04/13 Reported TAKE ONE 60 MG TABLET ALONG WITH ONE 40 MG TABLET TO EQUAL 100 MG DOSE. Ambien (Zolpidem Tartrate) 5 Mg Tab 5 Mg PO HS PRN 04/12/12 Reported Review of Systems 12 systems reviewed and negative except as noted Physical Exam Date Time Temp Pulse Resp B/P Pulse Ox O2 Delivery O2 Flow Rate FiO2 03/06/17 12:20 92 Nasal Cannula 2.0 03/06/17 12:20 36.7 99 18 96/63 77 Room Air 03/06/17 08:00 Room Air 03/06/17 07:06 36.3 77 18 99/65 96 Nasal Cannula 1.0 03/06/17 03:30 Nasal Cannula 2.0 03/06/17 02:35 36.4 84 15 135/83 94 Room Air 03/06/17 02:24 100 03/06/17 02:00 154/87 03/06/17 01:35 87 19 100 Nasal Cannula 2.0 03/06/17 01:30 152/82 03/06/17 01:28 84 23 100 Nasal Cannula 2.0 03/06/17 01:00 142/78 03/06/17 00:58 83 22 100 Nasal Cannula 2.0 03/06/17 00:53 87 20 100 Nasal Cannula 2.0 03/06/17 00:30 148/86 03/06/17 00:23 82 21 100 Nasal Cannula 2.0 03/06/17 00:00 138/82 03/05/17 23:53 85 18 96 Nasal Cannula 2.0 03/05/17 23:48 133/82 03/05/17 23:38 87 03/05/17 23:29 126/84 03/05/17 23:23 100 Nasal Cannula 2.0 03/05/17 23:23 36.7 88 19 126/84 98 Nasal Cannula 2.0 03/05/17 23:23 100 Nasal Cannula 2.0 General Appearance: + cachetic Eyes: normal inspection, PERRL ENT: normal ENT inspection, hearing grossly normal, pharynx normal Neck: supple, no JVD Respiratory/Chest: chest non-tender, no respiratory distress, no accessory muscle use, + decreased breath sounds, + wheezing Cardiovascular: regular rate, rhythm, no murmur Abdomen: normal bowel sounds, soft, + tenderness Extremities: normal range of motion, non-tender, no pedal edema Neurologic/Psych: 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, no motor/sensory deficits, alert, normal mood/affect, oriented x 3 Skin: normal color, no jaundice, no rash Laboratory Results Last 24 Hours Test 03/05/17 23:10 03/06/17 01:42 03/06/17 06:05 White Blood Count 6.45 K/uL 6.31 K/uL Red Blood Count 3.68 M/uL 3.31 M/uL Hemoglobin 14.9 g/dL 13.2 g/dL Hematocrit 43.8 % 39.4 % Mean Corpuscular Volume 119.0 fL 119.0 fL Mean Corpuscular Hemoglobin 40.5 pg 39.9 pg Mean Corpuscular Hemoglobin Concent 34.0 g/dl 33.5 g/dl Platelet Count 254 K/uL 228 K/uL Mean Platelet Volume 8.7 fL 8.5 fL Neutrophils (%) (Auto) 70.7 % 54.8 % Lymphocytes (%) (Auto) 20.6 % 35.7 % Monocytes (%) (Auto) 6.8 % 5.5 % Eosinophils (%) (Auto) 1.1 % 2.7 % Basophils (%) (Auto) 0.5 % 1.0 % Neutrophils # (Auto) 4.56 K/uL 3.46 K/uL Lymphocytes # (Auto) 1.33 K/uL 2.25 K/uL Monocytes # (Auto) 0.44 K/uL 0.35 K/uL Eosinophils # (Auto) 0.07 K/uL 0.17 K/uL Basophils # (Auto) 0.03 K/uL 0.06 K/uL RDW Standard Deviation 51.2 fL 50.2 fL RDW Coefficient of Variation 11.8 % 11.6 % Immature Granulocyte % (Auto) 0.3 % 0.3 % Immature Granulocyte # (Auto) 0.02 K/uL 0.02 K/uL Hyposegmented Neutrophils 1+ Macrocytosis PRESENT PRESENT Tear Drop Cells 1+ Prothrombin Time 10.7 SECONDS Prothromb Time International Ratio 1.0 Sodium Level 136 mmol/L 139 mmol/L Potassium Level 4.1 mmol/L 4.5 mmol/L Chloride Level 99 mmol/L 107 mmol/L Carbon Dioxide Level 27 mmol/L 26 mmol/L Anion Gap 10.0 mmol/L 6.0 mmol/L Blood Urea Nitrogen 7 mg/dl 5 mg/dl Creatinine 0.50 mg/dl 0.40 mg/dl Est Creatinine Clear Calc Drug Dose 78.6 ml/min 99.0 ml/min Estimated GFR () 127.2 136.9 Estimated GFR (Non- 109.7 118.1 BUN/Creatinine Ratio 13.6 11.3 Random Glucose 131 mg/dl 91 mg/dl Calcium Level 9.2 mg/dl 8.3 mg/dl Magnesium Level 2.0 mg/dl Total Bilirubin 0.5 mg/dl 0.7 mg/dl Direct Bilirubin 0.3 mg/dl Aspartate Amino Transf (AST/SGOT) 413 U/L 205 U/L Alanine Aminotransferase (ALT/SGPT) 220 U/L 144 U/L Alkaline Phosphatase 962 U/L 808 U/L Total Creatine Kinase 57 U/L Creatine Kinase MB 0.9 ng/ml Creatine Kinase MB Ratio 1.6 Troponin I < 0.015 ng/ml Total Protein 7.6 gm/dl 6.1 gm/dl Albumin 4.0 gm/dl 3.2 gm/dl Lipase 1605 U/L 1008 U/L Ethyl Alcohol mg/dL < 3.0 mg/dl Globulin 2.9 gm/dl Albumin/Globulin Ratio 1.1 Impression Patient is a 56 year old female alcoholic admitted with recurrent/on-going ETOH pancreatitis. Plan - Bowel rest. - IVF hydration. - Watch carefully for ETOH withdrawal. - Continue with current mgt. - She needs an outpatient EUS. - More importantly, she needs to stop ETOH. - High likelihood she will sign out AGAIN AMA.
[2017-03-06] MEDS ORDERED: LORAZEPAM 0.5 MG TAB PO SCH (21:00)
[2017-03-07] VITALS (7 sets, daily range): BP systolic 101–127; BP diastolic 67–80; PULSE 96–105; TEMP 36.4–38.6; O2SAT 90–94
[2017-03-07] MEDS: LACTATED RINGER'S 1000ML 1,000 ML IV SCH (05:42)
[2017-03-07] MEDS: HEPARIN SOD 5000 UNIT/0.5 ML CARP SQ SCH ×2 (05:46→13:48)
[2017-03-07 07:37] LABS: BUN/CREATININE RATIO 7.3 (10-20); CALCIUM 8.4 mg/dl (8.5-10.1); CREATININE 0.45 mg/dl (0.60-1.20); POTASSIUM 4.4 mmol/L (3.5-5.1)
[2017-03-07 07:39] LABS: ALB/GLOB RATIO 1.1 (0.9-2)
[2017-03-07] MEDS: GABAPENTIN 400 MG CAP PO SCH ×2 (08:03→16:15)
[2017-03-07] MEDS: ACETAMINOPHEN 325 MG TAB PO PRN (08:06)
[2017-03-07] MEDS: IPRATROPIUM BROMIDE/ALBUTEROL respimat INH INH SCH ×3 (08:47→16:15)
[2017-03-07] MEDS: DOCUSATE SODIUM 100 MG CAP PO SCH (08:48)
[2017-03-07] MEDS: LORATADINE 10 MG TAB PO SCH (08:48)
[2017-03-07] MEDS: PANTOprazole SOD 40 MG TAB PO SCH (08:49)
[2017-03-07] MEDS: RANITIDINE HCL 150 MG TAB PO SCH (08:50)
[2017-03-07] MEDS: NICOTINE 14 MG/24 HR TDSY TD SCH (08:52)
[2017-03-07] MEDS: OXYCODONE HCL 20 MG TABCR (OXYCONTIN) PO SCH (08:59)
[2017-03-07] MEDS ORDERED: THIAMINE HCL 100 MG TAB PO SCH (09:00)
[2017-03-07] MEDS: LIDODERM (LIDOCAINE) PATCH 5% TD SCH (09:00)
[2017-03-07] MEDS ORDERED: MULTIVITAMIN TAB PO SCH (09:00)
--- NOTE | 2017-03-07 10:19 | Gastroenterology Progress Note ---
Progress Note Date of Service: March 07, 2017 Subjective Pt evaluation today including: conversation w/ patient, physical exam, chart review, lab review, review of studies, review of inpatient medication list Patient is a 56 year old female with COPD, chronic back pain on chronic narcotics, as well as a long standing history of alcoholism and multiple admissions for ETOH pancreatitis. She had a CT done during her last hospitalization which showed an abnormal non-specific soft tissue density abutting the SMA (new from scan in 2016) with recommendation for f/u in one month. Plan is for an outpatient EUS. Admits to drinking alcohol. She is S/P cholecystectomy and imaging with w/o bile duct abnormalities. Lipase on arrival: 1605, 1008 yesterday and 107 today. AST on arrival 413, today 108. Alt on arrival 220, today 107. Has some tachycardia to 105, and mild temp 97.9, no diaphoresis or leukocytosis. Today: She tells us that she does not want to stop drinking. She also tells me that she wants to go home today. Still somewhat tachycardic and Smokes 2 PPD as well. Review of Systems Constitutional: + fever, + see HPI Eyes: No worsening of vision ENT: No hearing loss Respiratory: No cough Cardiac: No chest pain Abdomen: No diarrhea, No nausea, No pain, No vomiting Female : No dysuria Neuro: No memory loss Psych: No depression symptoms Heme: No abnormal bleeding/bruising Endo: No fatigue Skin: No rash Medications Current Inpatient Medications Medications (Trade) Dose Ordered Sig/Jonathon Route Start Time Stop Time Status Last Admin Dose Admin Heparin Sodium (Porcine) (Heparin Sq 5000 Unit/0.5ml) 5,000 unit Q8 SQ 03/06/17 06:00 04/05/17 05:59 03/07/17 05:46 5,000 UNIT Acetaminophen (Tylenol Tab) 325 mg Q4H PRN PO 03/06/17 01:45 04/05/17 01:44 03/07/17 08:06 325 MG Ketorolac Tromethamine (Toradol Inj) 15 mg Q6H PRN IV. 03/06/17 01:45 03/11/17 01:44 03/06/17 03:08 15 MG Lorazepam (Ativan Inj) 0.5 mg Q4H PRN IV 03/06/17 01:45 04/05/17 01:44 Ondansetron HCl (Zofran Inj) 4 mg Q6H PRN IV 03/06/17 01:45 04/05/17 01:44 03/06/17 03:08 4 MG Nicotine 1 patch 1 patch QAM TD 03/06/17 09:00 04/05/17 08:59 03/07/17 08:52 1 PATCH Lactated Ringer's (Lr 1000ml) 1,000 ml @ 150 mls/hr Q6H40M IV 03/06/17 03:30 04/05/17 03:29 03/07/17 05:42 150 MLS/HR Miscellaneous (Remove Nicoderm Patch) 1 ea HS N/A 03/06/17 21:00 04/05/17 20:59 03/06/17 20:52 1 EA Docusate Sodium (coLACE CAP) 100 mg BID PO 03/06/17 09:00 04/05/17 08:59 03/07/17 08:48 100 MG Albuterol/ Ipratropium (Combivent Respimat Inh) 1 puffs QID INH 03/06/17 09:00 04/05/17 08:59 03/07/17 08:47 1 PUFFS Lidocaine (Lidoderm Patch 5%) 1 patch DAILY TD 03/06/17 09:00 04/05/17 08:59 03/07/17 09:00 1 PATCH Loratadine (Claritin Tab) 10 mg DAILY PO 03/06/17 09:00 04/05/17 08:59 03/07/17 08:48 10 MG Lorazepam (Ativan Tab) 0.5 mg HS PO 03/06/17 21:00 04/05/17 20:59 03/06/17 20:52 0.5 MG Mirtazapine (Remeron Tab) 15 mg HS PRN PO 03/06/17 01:45 04/05/17 01:44 Oxycodone HCl (Oxycontin Tab) 100 mg Q12 PO 03/06/17 09:00 03/20/17 08:59 03/07/17 08:59 100 MG Ranitidine HCl (zANTac TAB) 150 mg BID PO 03/06/17 09:00 04/05/17 08:59 03/07/17 08:50 150 MG Zolpidem Tartrate (Ambien Tab) 5 mg HS PRN PO 03/06/17 01:45 04/05/17 01:44 Pantoprazole Sodium (Protonix Tab) 40 mg BID PO 03/06/17 09:00 04/05/17 08:59 03/07/17 08:49 40 MG Miscellaneous (Remove Lidoderm Patch) 1 ea DAILY@21 N/A 03/06/17 21:00 04/05/17 20:59 03/06/17 20:52 1 EA Albuterol/ Ipratropium (Duoneb) 3 ml Q2H PRN INH 03/06/17 01:45 04/05/17 01:44 Lorazepam (Ativan Inj) PRN Dosing -Active Protocol Q1H PRN IV 03/06/17 01:45 04/05/17 01:44 Thiamine HCl (Vitamin B-1 Tab) 100 mg QAM PO 03/07/17 09:00 04/06/17 08:59 03/07/17 08:50 100 MG Multivitamins (Multivitamin Tab) 1 tab QAM PO 03/07/17 09:00 04/06/17 08:59 03/07/17 08:49 1 TAB Folic Acid (Folvite Tab) 1 mg QAM PO 03/07/17 09:00 04/06/17 08:59 03/07/17 08:49 1 MG Hydromorphone HCl (Dilaudid Inj) 0.5 mg Q6H PRN IV 03/06/17 07:45 03/20/17 07:44 03/06/17 19:32 0.5 MG Gabapentin (Neurontin Cap) 400 mg Q8H PO 03/07/17 00:00 03/07/17 16:01 03/07/17 08:03 400 MG Gabapentin (Neurontin Cap) 400 mg Q12H PO 03/08/17 04:00 03/08/17 16:01 Gabapentin 400 mg 400 mg TODAY@1600 PO 03/09/17 16:00 03/09/17 16:01 Lorazepam 1 mg/ Syringe 1 ml @ 1 mls/min Q1H PRN IV 03/06/17 03:15 04/05/17 03:14 Lorazepam 0.5 mg/ Syringe 0.5 ml @ 0.5 mls/min Q1H PRN IV 03/06/17 03:15 04/05/17 02:59 Lorazepam/Syringe (Ativan Inj/ Syringe) 1 ml @ 1 mls/min Q4H PRN IV 03/06/17 03:15 04/05/17 03:14 Objective Vital Signs Date Time Temp Pulse Resp B/P Pulse Ox O2 Delivery O2 Flow Rate FiO2 03/07/17 09:30 37.9 03/07/17 07:50 38.6 03/07/17 07:50 Room Air 03/07/17 07:20 38.1 105 16 127/80 94 2.0 03/07/17 04:10 36.6 98 16 105/69 90 Nasal Cannula 2.0 03/06/17 23:25 36.7 98 16 102/68 92 Nasal Cannula 2.0 03/06/17 23:25 Nasal Cannula 03/06/17 22:57 93 Nasal Cannula 2.0 03/06/17 22:55 36.8 104 18 114/70 85 Room Air 03/06/17 16:25 90 Room Air 03/06/17 15:09 36.8 92 18 110/69 90 Room Air 03/06/17 12:20 92 Nasal Cannula 2.0 03/06/17 12:20 36.7 99 18 96/63 77 Room Air Physical Exam General Appearance: no apparent distress Neck: no JVD Respiratory/Chest: + crackles (few at bases), + wheezing (mild, scattered ) Cardiovascular: no JVD, no murmur, + tachycardia Abdomen: soft, + tenderness (mild epigastric) Neurologic/Psych: alert, normal mood/affect, oriented x 3 Skin: no jaundice Laboratory Results Last 24 Hours Test 03/07/17 06:15 Sodium Level 142 mmol/L Potassium Level 4.4 mmol/L Chloride Level 104 mmol/L Carbon Dioxide Level 34 mmol/L Anion Gap 4.0 mmol/L Blood Urea Nitrogen 3 mg/dl Creatinine 0.45 mg/dl Est Creatinine Clear Calc Drug Dose 88.0 ml/min Estimated GFR () 131.7 Estimated GFR (Non- 113.6 BUN/Creatinine Ratio 7.3 Random Glucose 77 mg/dl Calcium Level 8.4 mg/dl Total Bilirubin 0.5 mg/dl Aspartate Amino Transf (AST/SGOT) 108 U/L Alanine Aminotransferase (ALT/SGPT) 107 U/L Alkaline Phosphatase 802 U/L Total Protein 5.8 gm/dl Albumin 3.0 gm/dl Globulin 2.8 gm/dl Albumin/Globulin Ratio 1.1 Lipase 376 U/L Assessment and Plan Ms. Liang is a 56 yr old female with alcoholic pancreatitis, which seems to be improving. She appears comfortable and overall well today. She continues to drink alcohol and smoke so is likely to continue to have episodes of pancreatitis. She is interested in the patch to stop smoking. Her tachycardia today likely represents alcohol withdraw. Plan: 1. Clear liquid. 2. Continue patch for smoking cessation on discharge. 3. Will plan for EUS as OP. 4. Most important is to stop drinking alcohol. 5. Though pt requests DC today, would watch at least another day before discharge, mostly for alcohol withdraw issues. I saw and evaluated the patient. She presented with recurrent abdominal pain thought to be related to alcoholic pancreatitis. She did sign out recently AMA returned yesterday afternoon. She notes that she would like to leave today and feel she can tolerate a regular diet without problems. Physical examination Elderly appearing female in no obvious distress Impression: Patient with a history of pancreatitis likely related to underlying alcohol abuse. Would recommend abstinence from alcohol use. We will plan to do an upper endoscopy with endoscopic ultrasound in about 6-8 weeks. Please call with any questions or concerns during the respiratory hospitalization. Would recommend advancing diet as tolerated.
--- NOTE | 2017-03-07 11:00 | Progress Note ---
Internal Med Progress Note Date of Service: March 07, 2017. Provider Documentation: SUBJECTIVE: The patient was seen and examined Denies any abdominal pain No Nausea and or vomiting OBJECTIVE: Vital Signs-as noted below Exam: General-No distress at rest Eyes-normal ENT-normal Neck-supple Lungs-Clear to auscultate bilaterally Heart-Regular,no murmur appreciated Abdomen-Benign,no masses,bowel sound present No tenderness Extremities-NO edema Neuro-AAOx3 No focal neuro deficit Lab data as noted below. ASSESSMENT & PLAN: Recurrent pancreatitis Secondary ongoing alcohol abuse NPO,analgesia, IV fluids. Bowel rest GI consult RE recurrent pancreatitis. -appreciate input DT precautions. Nicotine patch. Clinically a lot better Lipase is improved-normalized Clears orally and advance as tolerated EUS as an OP Chronic obstructive pulmonary disease, ongoing tobacco abuse. No issues except for cough symptoms productive of white sputum Status at baseline as per patient Malnutrition (low body mass index) Nutrition consult RE low BMI. Chronic pain on narcotics. DVT prophylaxis, Lovenox subQ. Full code. DISPOSITION Likely home this afternoon /tomorrow Vital Signs: Date Time Temp Pulse Resp B/P Pulse Ox O2 Delivery O2 Flow Rate FiO2 03/07/17 09:30 37.9 03/07/17 07:50 38.6 03/07/17 07:50 Room Air 03/07/17 07:20 38.1 105 16 127/80 94 2.0 03/07/17 04:10 36.6 98 16 105/69 90 Nasal Cannula 2.0 03/06/17 23:25 36.7 98 16 102/68 92 Nasal Cannula 2.0 03/06/17 23:25 Nasal Cannula 03/06/17 22:57 93 Nasal Cannula 2.0 03/06/17 22:55 36.8 104 18 114/70 85 Room Air 03/06/17 16:25 90 Room Air 03/06/17 15:09 36.8 92 18 110/69 90 Room Air 03/06/17 12:20 92 Nasal Cannula 2.0 03/06/17 12:20 36.7 99 18 96/63 77 Room Air Lab Results: Results Past 24 Hours Test 03/07/17 06:15 Range/Units Sodium Level 142 136-145 mmol/L Potassium Level 4.4 3.5-5.1 mmol/L Chloride Level 104 98-107 mmol/L Carbon Dioxide Level 34 21-32 mmol/L Anion Gap 4.0 3-11 mmol/L Blood Urea Nitrogen 3 7-18 mg/dl Creatinine 0.45 0.60-1.20 mg/dl Est Creatinine Clear Calc Drug Dose 88.0 ml/min Estimated GFR () 131.7 Estimated GFR (Non- 113.6 BUN/Creatinine Ratio 7.3 10-20 Random Glucose 77 70-99 mg/dl Calcium Level 8.4 8.5-10.1 mg/dl Total Bilirubin 0.5 0.2-1 mg/dl Aspartate Amino Transf (AST/SGOT) 108 15-37 U/L Alanine Aminotransferase (ALT/SGPT) 107 12-78 U/L Alkaline Phosphatase 802 45-117 U/L Total Protein 5.8 6.4-8.2 gm/dl Albumin 3.0 3.4-5.0 gm/dl Globulin 2.8 2.5-4.0 gm/dl Albumin/Globulin Ratio 1.1 0.9-2 Lipase 376 73-393 U/L
[2017-03-07] MEDS: HYDROmorphone INJ 1 MG/ML SYR IV PRN (14:33)
--- NOTE | 2017-03-07 17:46 | Discharge Instructions ---
Discharge Instructions Date of Service March 07, 2017. Admission Reason for Admission: Pancreatitis Discharge Discharge Diagnosis / Problem: Acute Recurrent Pancreatitis secondary to Accohol Abuse Discharge Goals Goal(s): Prevent Disease Progression Activity Recommendations Activity Limitations: resume your previous activity . Instructions / Follow-Up Instructions / Follow-Up Dr Epps on 03/10/17 at 11:00AM Current Hospital Diet Patient's current hospital diet: Regular Diet Discharge Diet Recommended Diet: Regular Diet Pending Studies Studies pending at discharge: no Medical Emergencies . Who to Call and When: Medical Emergencies: If at any time you feel your situation is an emergency, please call 911 immediately. . Non-Emergent Contact Non-Emergency issues call your: Primary Care Provider . Past History Medical & Surgical History: (1) Pancreatitis (2) Back pain (3) COPD (chronic obstructive pulmonary disease) (4) DEPRESSIVE DISORDER NEC (5) EMPHYSEMA NEC (6) TOBACCO USE DISORDER (7) H/o lumbar spinal surgery (8) Hx of appendectomy (9) H/O tubal ligation (10) S/p placement of lumbar electrical stimulator (11) Hx of cholecystectomy . "Provider Documentation" section prepared by Sweetie Lloyd. . VTE Core Measure Inpt VTE Proph given/why not?: Unfractionated heparin SQ
[2017-03-07] MEDS ORDERED: NCDT14 TD (17:47)
--- NOTE | 2017-03-07 18:23 | Discharge Summary ---
Discharge Summary Date of Service March 07, 2017. Discharge Summary Admission Date: March 06, 2017 at 01:26 Discharge Date: March 07, 2017 Discharge Disposition: Home Principal Diagnosis: Acute Recurrent Pancreatitis,Alcoholic Secondary Diagnoses/Problems: Please see H&P and Hospital Progress note Consultations: GI Medication Reconciliation New Medications: Nicotine (Nicotine) 1 Patch Tdsy 14 MG TD DAILY, #30 Continued Medications: Albuterol Hfa (Ventolin Hfa) 200 Puffs/84196 Mcg Aers 2 PUFFS INH Q6H PRN for SOB/Wheezing, #1 INHALER Albuterol Sulf (Proventil 0.083% 2.5MG/3ML) 2.5 Mg/3 Ml Nebu 2.5 MG INH DIRECTED for wheezing, EA Calcium Carbonate-Cholecalcife (Oysco 500+D) 1 Chw Chw 1 TAB PO DAILY Carisoprodol (Soma) 350 Mg Tab 350 MG PO DAILY PRN for Muscle Spasm, TAB Docusate Sodium (Docusate Sodium) 100 Mg Cap 1 CAP PO BID for 15 Days, #30 CAP Ipratropium-Albuterol (Combivent Respimat) 1 Aer Aer 1 PUFF INH QID, INH Lidocaine (Lidoderm Patch 5%) 1 Ea Tdsy 1 PATCH TOP DAILY Loratadine (Claritin) 10 Mg Tab 10 MG PO DAILY, TAB Lorazepam (Ativan) 0.5 Mg Tab 0.5 MG PO HS, TAB Mirtazapine (Remeron) 15 Mg Tab 15 MG PO HS, TAB Oxycodone Hcl (Oxycontin) 60 Mg Tab 60 MG PO Q12, TAB TAKE ONE 60 MG TABLET ALONG WITH ONE 40 MG TABLET TO EQUAL 100 MG DOSE. Oxycodone HCl (Oxycontin) 40 Mg Tabcr 40 MG PO Q12 TAKE ONE 40 MG TABLET ALONG WITH ONE 60 MG TABLET TO EQUAL 100 MG DOSE. Oxycodone HCl (Oxycodone HCl) 5 Mg Tab 5 MG PO Q4H PRN for Pain MAX= 6 TABLETS DAILY. Oxygen (Oxygen) Gas 2 LITERS NA HS Rabeprazole Sodium (Aciphex) 20 Mg Tab 20 MG PO BID, TAB Ranitidine (Zantac) 150 Mg Tab 150 MG PO BID, TAB Zolpidem Tartrate (Ambien) 5 Mg Tab 5 MG PO HS PRN for Sleep, TAB Admission Information HPI (per Admitting provider): DATE OF ADMISSION: 03/05/2017 PRIMARY CARE DOCTOR: Dr. Epps History obtained from patient and records. CHIEF COMPLAINT: Abdominal pain. HISTORY OF PRESENT ILLNESS: Medical history is significant for COPD, ongoing tobacco abuse, recurrent pancreatitis, ongoing ETOH abuse, chronic pain on narcotics. Recent confinement was in last week for alcoholic pancreatitis. CT of the abdomen and pelvis at that time showed an abnormal soft tissue density abutting the superior mesenteric artery, new since February 2016. CT abdomen; pancreas protocol in one month is recommended. Patient was seen by GI. Consideration for outpatient endoscopic ultrasound as patient may not be able to undergo ERCP due to orthopedic hardware. Patient signed out against medical advice. Started drinking a little again yesterday, Px subsequently achy epigastric pain going to the chest w/ nausea and emesis. No fever, no chills. Usual shortness of breath on exertion. Cough symptoms productive of white sputum. MEDICAL HISTORY: As above. SURGERIES: She has had a cholecystectomy, back surgery, tubal ligation, appendectomy, carpal tunnel surgery, spine stimulator. HOME MEDICATIONS: Include; OxyContin, AcipHex, Zantac, Ambien, lidocaine, Ativan, Claritin, Remeron, Ambien, albuterol, Soma, docusate sodium and Combivent. ALLERGIES: TO MORPHINE, PENICILLIN AND SULFA. FAMILY HISTORY: Colon cancer and blood clots. PERSONAL AND SOCIAL HISTORY: Half pack daily. Regular alcohol intake. Disabled. REVIEW OF SYSTEMS: As per HPI. All other ROS negative. PHYSICAL EXAMINATION: VITAL SIGNS: Blood pressure was noted to be 138/82, pulse rate 87, RR 20, T 37 sats 98 on room air. GENERAL: Noted to be hyposthenic. No respiratory distress. SKIN: Normal color. HEENT: Chronic facial asymmetry. NECK: No JVD. supple CHEST: Decreased breath sounds. HEART: Regular rate and rhythm. ABDOMEN: Epigastric tenderness. EXTREMITIES: No edema. no tenderness NEUROLOGIC: No gross focality except for old facial asymmetry. LABORATORIES: Hemoglobin 14.9, hematocrit 40, white cell count 6.4 and platelets 254. Sodium 136, potassium 4.9, chloride 99, CO2 27, BUN 70, creatinine 1.1 glucose 131. AST 413 and ALT 220. Alkaline phosphatase 962 and lipase 1605. trop 0 EKG as per my interpretation : rate=80, NSR, no ischemia CXR emphysema ASSESSMENT: 1. Recurrent pancreatitis ongoing alcohol abuse 2. chronic obstructive pulmonary disease, ongoing tobacco abuse. No issues except for cough symptoms productive of white sputum breathing status at baseline as per patient 3.. malnutrition (low body mass index) 4. Chronic pain on narcotics. PLAN: GMF analgesia, IV fluids. bowel rest for now GI consult RE recurrent pancreatitis. Nutrition consult RE low BMI. DT precautions. Nicotine patch. DVT prophylaxis, Lovenox subQ. Full code. Hospital Course Recurrent pancreatitis Secondary ongoing alcohol abuse NPO,analgesia, IV fluids. Bowel rest GI consult RE recurrent pancreatitis. -appreciate input DT precautions. Nicotine patch. Clinically a lot better Lipase is improved-normalized Clears orally and advance as tolerated EUS as an OP Chronic obstructive pulmonary disease, ongoing tobacco abuse. No issues except for cough symptoms productive of white sputum Status at baseline as per patient Malnutrition (low body mass index) Nutrition consult RE low BMI. Chronic pain on narcotics. DVT prophylaxis, Lovenox subQ. Full code. DISPOSITION Likely home this afternoon /tomorrow Total time spent on discharge = This includes examination of the patient, discharge planning, medication reconciliation, and communication with other providers. Discharge Instructions Date of Service March 07, 2017. Admission Reason for Admission: Pancreatitis Discharge Discharge Diagnosis / Problem: Acute Recurrent Pancreatitis secondary to Accohol Abuse Discharge Goals Goal(s): Prevent Disease Progression Activity Recommendations Activity Limitations: resume your previous activity . Instructions / Follow-Up Instructions / Follow-Up Dr Epps on 03/10/17 at 11:00AM Current Hospital Diet Patient's current hospital diet: Regular Diet Discharge Diet Recommended Diet: Regular Diet Pending Studies Studies pending at discharge: no Medical Emergencies . Who to Call and When: Medical Emergencies: If at any time you feel your situation is an emergency, please call 911 immediately. . Non-Emergent Contact Non-Emergency issues call your: Primary Care Provider . Past History Medical & Surgical History: (1) Pancreatitis (2) Back pain (3) COPD (chronic obstructive pulmonary disease) (4) DEPRESSIVE DISORDER NEC (5) EMPHYSEMA NEC (6) TOBACCO USE DISORDER (7) H/o lumbar spinal surgery (8) Hx of appendectomy (9) H/O tubal ligation (10) S/p placement of lumbar electrical stimulator (11) Hx of cholecystectomy . "Provider Documentation" section prepared by Sweetie Lloyd. . VTE Core Measure Inpt VTE Proph given/why not?: Unfractionated heparin SQ <Electronically signed by Sweetie Lloyd M.D.> Additional Copies To Marcelo Epps M.D.
[2017-03-08] MEDS ORDERED: GABAPENTIN 400 MG CAP PO SCH (04:00)
[2017-03-09] MEDS ORDERED: GABAPENTIN 400 MG CAP PO SCH (16:00)
[2017-03-15] MEDS ORDERED: UMEC1AER INH (00:41)
[2017-03-15] MEDS ORDERED: RABE20TA5 PO (00:41)
[2017-03-31] MEDS ORDERED: ASPI81TA28 PO (15:46)
[2017-03-31] MEDS ORDERED: UMEC1AER INH (16:16)
[2017-03-31] MEDS ORDERED: PREDPOW63 PO (16:16)
[2017-05-27] MEDS ORDERED: PRLSR20 PO (11:38)
[2017-05-27] MEDS ORDERED: UMEC1AER INH (11:38)
== END 2017-03-07 17:15 | disposition home or self-care (01) | DRG 439 ==
LOC: ENRESERVTM → ENRESERVDT → EDBD 23:23 → C.EDA 23:24 → C.MSN 03-06 01:26
PROVIDERS: ADMIT Internal Medicine; ATTEND Internal Medicine
DX: K85.20 Alcohol induced acute pancreatitis without necrosis or infection (principal); E46 Unspecified protein-calorie malnutrition; Z68.1 Body mass index [BMI] 19.9 or less, adult; K86.0 Alcohol-induced chronic pancreatitis; J44.9 Chronic obstructive pulmonary disease, unspecified; F17.210 Nicotine dependence, cigarettes, uncomplicated; K21.9 Gastro-esophageal reflux disease without esophagitis; M81.0 Age-related osteoporosis without current pathological fracture; K25.9 Gastric ulcer, unspecified as acute or chronic, without hemorrhage or perforation; Z88.2 Allergy status to sulfonamides; G89.29 Other chronic pain; F10.20 Alcohol dependence, uncomplicated; R93.5 Abnormal findings on diagnostic imaging of other abdominal regions, including retroperitoneum; Z80.0 Family history of malignant neoplasm of digestive organs; Z88.0 Allergy status to penicillin; F32.9 Major depressive disorder, single episode, unspecified; T51.0X1A Toxic effect of ethanol, accidental (unintentional), initial encounter; R19.09 Other intra-abdominal and pelvic swelling, mass and lump; K29.70 Gastritis, unspecified, without bleeding; M54.9 Dorsalgia, unspecified; Z99.81 Dependence on supplemental oxygen; Z79.82 Long term (current) use of aspirin; Z79.891 Long term (current) use of opiate analgesic; Z79.899 Other long term (current) drug therapy

== ENCOUNTER 2017-03-14 21:40 | Inpatient (IN) | payer OTHER ==
[~2017-03-14] VITALS: Ht 165.1 cm; Wt 39.5 kg
[~2017-03-14 21:40] MED LIST changes: -LIDO5DIS10 TOP; +NCDT14 TD; +NF656 TOP
[2017-03-14] MEDS ORDERED: SODIUM CHLORIDE 0.9% 1000ML 1,000 ML IV STA (22:01)
[2017-03-14] MEDS ORDERED: SODIUM CHLORIDE 0.9% 500ML 500 ML IV STA (22:01)
[2017-03-14] MEDS ORDERED: HYDROmorphone INJ 0.5 MG/0.5 ML SYR IV STA ×2 (22:01→23:18)
[2017-03-14] MEDS ORDERED: DiphenhydrAMINE HCL 50 MG/ML VIAL IV STA (22:01)
[2017-03-14] MEDS ORDERED: METOCLOPRAMIDE HCL INJ 5 MG/ML 2 ML VIAL IV STA (22:01)
[2017-03-14 22:11] LABS: BASO % 0.3 %; BASO ABS # 0.04 K/uL (0-0.2); EOS % 0.7 %; IG% 0.3 %; MEAN CELL VOLUME 118.7 fL (80-100); MEAN CORPUSCULAR HEMOGLOBIN 39.5 pg (25-34); MEAN CORPUSCULAR HGB CONC 33.3 g/dl (32-36); MEAN PLATELET VOLUME 8.6 fL (7.4-10.4); NEUT % 65.7 %; PLATELET COUNT 452 K/uL (130-400); RED BLOOD COUNT 3.37 M/uL (4.2-5.4); WHITE BLOOD COUNT 14.82 K/uL (4.8-10.8)
[2017-03-14 22:12] LABS: PARTIAL THROMBOPLASTIN RATIO 0.9; PROTHROMBIN TIME (PATIENT) 11.1 SECONDS (9.0-12.0)
--- NOTE | 2017-03-14 22:39 | DIAGNOSTIC IMAGING REPORT ---
SINGLE VIEW CHEST CLINICAL HISTORY: Atypical chest pain. FINDINGS: An AP, portable, upright chest radiograph is compared to study dated 03/05/2017. The examination is degraded by portable technique and patient rotation. The cardiomediastinal silhouette is unremarkable. There is atherosclerotic calcification of the thoracic aorta. The lungs and pleural spaces are clear. Nipple shadows project over the lower lobes. No pneumothorax is seen. The bony thorax is grossly intact. Cholecystectomy clips are identified in the right upper quadrant. IMPRESSION: No active disease in the chest. Electronically signed by: Nilton Ramos M.D. 03/14/2017 10:38 PM Dictated Date/Time: 03/14/2017 10:37 PM
[2017-03-14 22:40] LABS: COMPLETE YES; HYPERSEGMENTED POLYS 2+
[2017-03-14 23:02] LABS: CALCIUM 8.6 mg/dl (8.5-10.1)
[2017-03-14 23:05] LABS: POTASSIUM 3.7 mmol/L (3.5-5.1); SODIUM 138 mmol/L (136-145)
[2017-03-14 23:11] LABS: AST/SGOT 79 U/L (15-37); MAGNESIUM 2.3 mg/dl (1.8-2.4)
[2017-03-14 23:16] LABS: ALKALINE PHOSPHATASE 478 U/L (45-117); ALT/SGPT 51 U/L (12-78); BLOOD UREA NITROGEN 7 mg/dl (7-18); BUN/CREATININE RATIO 12.2 (10-20); CARBON DIOXIDE 28 mmol/L (21-32); CHLORIDE 99 mmol/L (98-107); CREATININE 0.58 mg/dl (0.60-1.20); GLUCOSE 101 mg/dl (70-99)
[2017-03-14] MEDS ORDERED: LORAZEPAM 2 MG/ML 1 ML VIAL IV STA (23:18)
--- NOTE | 2017-03-15 00:15 | EMERGENCY ROOM VISIT NOTE ---
History First contact with patient: 21:53 Chief Complaint: ABDOMINAL PAIN Stated Complaint: AB PAIN Nursing Triage Summary: Patient presents to ER via ALS. Patient is responsive. Per EMS, patient c/o of abdominal pain ehich started at 5 pm. Patient has hx of pancreatitis. History of Present Illness The patient is a 56 year old female who presents to the Emergency Room with complaints of severe epigastric pain with nausea and vomiting today who has a history of pancreatitis from alcohol. Patient states she's had no alcohol for the past week. Patient complains of multiple episodes of vomiting that is nonbloody nonblack in nature. She describes the pain as severe, 9 out of 10. Nothing makes it better or worse. EMS gave her fentanyl. Patient continues to smoke. Patient denies chest pain, dyspnea, fever, chills, cough, congestion, back pain, leg pain or swelling. She cannot keep fluids down. Review of Systems See HPI for pertinent positives & negatives. A total of 10 systems reviewed and were otherwise negative. Past Medical/Surgical History Medical Problems: (1) Abdominal pain (2) ABN LIVER FUNCTION STUDY (3) Back pain (4) Terrell's palsy (5) Chest pain (6) CHRONIC OBSTRUCTIVE ASTHMA, NOS (7) COPD (chronic obstructive pulmonary disease) (8) DEPRESSIVE DISORDER NEC (9) EMPHYSEMA NEC (10) GERD (gastroesophageal reflux disease) (11) Osteoporosis (12) Pancreatitis (13) Pancreatitis (14) Stomach ulcer (15) TOBACCO USE DISORDER (16) Ulcer Surgical Problems: (1) H/o lumbar spinal surgery (2) H/O tubal ligation (3) History of appendectomy (4) History of carpal tunnel release (5) History of cholecystectomy (6) Hx of appendectomy (7) Hx of cholecystectomy (8) S/p EGD (9) S/p placement of lumbar electrical stimulator Family History Blood clots FH: colon cancer Social History Smoking Status: Current Every Day Smoker Alcohol Use: occasionally, heavy Drug Use: none Marital Status: Housing Status: lives with family Occupation Status: unemployed Current/Historical Medications Scheduled Albuterol Sulf (Proventil 0.083% 2.5MG/3ML), 2.5 MG INH DIRECTED Calcium Carbonate-Cholecalcife (Oysco 500+D), 1 TAB PO DAILY Docusate Sodium (Docusate Sodium), 1 CAP PO BID Ipratropium-Albuterol (Combivent Respimat), 1 PUFF INH QID Lidocaine (Lidoderm Patch 5%), 1 PATCH TOP DAILY Loratadine (Claritin), 10 MG PO DAILY Lorazepam (Ativan), 0.5 MG PO HS Mirtazapine (Remeron), 15 MG PO HS Oxycodone HCl (Oxycontin), 40 MG PO Q12 Oxycodone Hcl (Oxycontin), 60 MG PO Q12 Oxygen (Oxygen), 2 LITERS NA HS Rabeprazole Sodium (Aciphex), 20 MG PO BID Ranitidine (Zantac), 150 MG PO BID Scheduled PRN Albuterol Hfa (Ventolin Hfa), 2 PUFFS INH Q6H PRN for SOB/Wheezing Carisoprodol (Soma), 350 MG PO DAILY PRN for Muscle Spasm Oxycodone HCl (Oxycodone HCl), 5 MG PO Q4H PRN for Pain Zolpidem Tartrate (Ambien), 5 MG PO HS PRN for Sleep Allergies Coded Allergies: Morphine (Verified Allergy, Intermediate, hives, 03/14/17) Penicillins (Verified Allergy, Unknown, ., 03/14/17) Sulfa Antibiotics (Verified Allergy, Unknown, PERIORBITAL EDEMA, 03/14/17) Physical Exam Vital Signs Date Time Temp Pulse Resp B/P Pulse Ox O2 Delivery O2 Flow Rate FiO2 03/15/17 00:01 78 14 100 Nasal Cannula 2.0 03/15/17 00:01 78 18 88 Room Air 03/14/17 23:36 71 14 148/87 97 Room Air 03/14/17 22:31 154/90 03/14/17 22:16 96 Room Air 03/14/17 22:16 96 Room Air 03/14/17 22:15 76 18 98 03/14/17 22:10 79 17 96 03/14/17 22:09 151/85 03/14/17 21:48 79 03/14/17 21:44 147/91 03/14/17 21:40 37.1 79 17 147/91 96 Room Air Physical Exam VITALS: Vitals are noted on the nurse's note and reviewed by myself. Vital signs stable. GENERAL: Frail appearing female appearing older than stated age actively vomiting. SKIN: The skin was without rashes, erythema, edema, or bruising. There is no tenting of the skin. Capillary reflex less than 2 seconds. HEAD: Normocephalic atraumatic. EARS: External auditory canals clear, tympanic membranes pearly van without erythema or effusion bilaterally. EYES: Pupils equal round and reactive to light and accommodation. Conjunctivae without injection, sclerae without icterus. Extraocular movements intact. NOSE: Patent, turbinates without inflammation or discharge. No sinus tenderness. MOUTH: Mucous membranes mildly dry. Pharynx without erythema or exudate. Uvula midline. Airway patent. Tongue does not deviate. NECK: Supple without nuchal rigidity. No lymphadenopathy. No thyromegaly. Cervical spine is nontender. No JVD. HEART: Regular rate and rhythm without murmurs gallops or rubs. LUNGS: Clear to auscultation bilaterally without wheezes, rales or rhonchi. No dullness to percussion. No retractions or accessory muscle use. ABDOMEN: Positive bowel sounds x 4. Normal tympanic percussion. Soft, tender to palpation epigastric region, no CVA tenderness, without masses or organomegaly. Bond sign negative. No guarding or rebound tenderness. MUSCULOSKELETAL: No muscle atrophy, erythema, or edema noted. NEURO: Patient was alert and oriented to person place and time. Normal sensation to light and sharp touch. No focal neurological deficits. Medical Decision & Procedures Laboratory Results 03/14/17 21:17 Red Blood Count 3.37, Mean Corpuscular Volume 118.7, Mean Corpuscular Hemoglobin 39.5, Mean Corpuscular Hemoglobin Concent 33.3, Mean Platelet Volume 8.6, Neutrophils (%) (Auto) 65.7, Lymphocytes (%) (Auto) 25.0, Monocytes (%) ( Auto) 8.0, Eosinophils (%) (Auto) 0.7, Basophils (%) (Auto) 0.3, Neutrophils # ( Auto) 9.75, Lymphocytes # (Auto) 3.70, Monocytes # (Auto) 1.19, Eosinophils # ( Auto) 0.10, Basophils # (Auto) 0.04 03/14/17 21:17 Test 03/14/17 21:17 03/14/17 22:13 White Blood Count 14.82 K/uL (4.8-10.8) Red Blood Count 3.37 M/uL (4.2-5.4) Hemoglobin 13.3 g/dL (12.0-16.0) Hematocrit 40.0 % (37-47) Mean Corpuscular Volume 118.7 fL (80-100) Mean Corpuscular Hemoglobin 39.5 pg (25-34) Mean Corpuscular Hemoglobin Concent 33.3 g/dl (32-36) Platelet Count 452 K/uL (130-400) Mean Platelet Volume 8.6 fL (7.4-10.4) Neutrophils (%) (Auto) 65.7 % Lymphocytes (%) (Auto) 25.0 % Monocytes (%) (Auto) 8.0 % Eosinophils (%) (Auto) 0.7 % Basophils (%) (Auto) 0.3 % Neutrophils # (Auto) 9.75 K/uL (1.4-6.5) Lymphocytes # (Auto) 3.70 K/uL (1.2-3.4) Monocytes # (Auto) 1.19 K/uL (0.11-0.59) Eosinophils # (Auto) 0.10 K/uL (0-0.5) Basophils # (Auto) 0.04 K/uL (0-0.2) RDW Standard Deviation 50.1 fL (36.4-46.3) RDW Coefficient of Variation 11.6 % (11.5-14.5) Immature Granulocyte % (Auto) 0.3 % Immature Granulocyte # (Auto) 0.04 K/uL (0.00-0.02) Hypersegmented Polys 2+ Macrocytosis PRESENT Prothrombin Time 11.1 SECONDS (9.0-12.0) Prothromb Time International Ratio 1.0 (0.9-1.1) Activated Partial Thromboplast Time 23.5 SECONDS (21.0-31.0) Partial Thromboplastin Ratio 0.9 Anion Gap 11.0 mmol/L (3-11) Est Creatinine Clear Calc Drug Dose 69.1 ml/min Estimated GFR () 121.1 Estimated GFR (Non- 104.5 BUN/Creatinine Ratio 12.2 (10-20) Calcium Level 8.6 mg/dl (8.5-10.1) Magnesium Level 2.3 mg/dl (1.8-2.4) Total Bilirubin 0.4 mg/dl (0.2-1) Direct Bilirubin 0.2 mg/dl (0-0.2) Aspartate Amino Transf (AST/SGOT) 79 U/L (15-37) Alanine Aminotransferase (ALT/SGPT) 51 U/L (12-78) Alkaline Phosphatase 478 U/L (45-117) Troponin I < 0.015 ng/ml (0-0.045) Total Protein 6.8 gm/dl (6.4-8.2) Albumin 3.6 gm/dl (3.4-5.0) Lipase 2136 U/L (73-393) Ethyl Alcohol mg/dL < 3.0 mg/dl (0-3) Medications Administered Medications (Trade) Dose Ordered Sig/Jonathon Route Start Time Stop Time Status Last Admin Dose Admin Metoclopramide HCl (Reglan Inj) 10 mg NOW STAT IV 03/14/17 22:01 03/14/17 22:03 DC 03/14/17 22:34 10 MG Diphenhydramine HCl (Benadryl Inj) 25 mg NOW STAT IV 03/14/17 22:01 03/14/17 22:03 DC 03/14/17 22:33 25 MG Hydromorphone HCl 0.5 mg 0.5 mg NOW STAT IV 03/14/17 22:01 03/14/17 22:03 DC 03/14/17 22:33 0.5 MG Sodium Chloride 500 ml @ 999 mls/hr Q31M STAT IV 03/14/17 22:01 03/14/17 22:31 DC 03/14/17 22:30 999 MLS/HR Sodium Chloride (Nss 1000ml) 1,000 ml @ 125 mls/hr Q8H STAT IV 03/14/17 22:01 03/15/17 06:00 03/14/17 22:30 125 MLS/HR Hydromorphone HCl (Dilaudid Inj) 0.5 mg NOW STAT IV 03/14/17 23:18 03/14/17 23:19 DC 03/14/17 23:38 0.5 MG Lorazepam (Ativan Inj) 0.5 mg NOW STAT IV 03/14/17 23:18 03/14/17 23:19 DC 03/14/17 23:38 0.5 MG ED Course Prior records/ancillary studies reviewed. Triage Nursing notes reviewed. Additional history obtained from EMS. The patient's history was concerning for abdominal pain. Differential diagnosis: Etiologies such as appendicitis, diverticulitis, PUD, biliary pathology, UTI, pancreatitis, obstruction, mesenteric ischemia, aortic pathology, infections, inflammatory bowel disease, renal colic, as well as others were entertained. Physical examination findings: As above. ER treatment provided: Dilaudid, Reglan, Benadryl, IV fluids On reassessment the patient felt better. Diagnostics interpreted by me: ECG: Normal sinus, normal intervals, no acute ST-T wave changes, rate of 73. Impression normal sinus rhythm interpreted by myself The labs revealed elevated lipase Leukocytosis Imaging studies: SINGLE VIEW CHEST CLINICAL HISTORY: Atypical chest pain. FINDINGS: An AP, portable, upright chest radiograph is compared to study dated 03/05/2017. The examination is degraded by portable technique and patient rotation. The cardiomediastinal silhouette is unremarkable. There is atherosclerotic calcification of the thoracic aorta. The lungs and pleural spaces are clear. Nipple shadows project over the lower lobes. No pneumothorax is seen. The bony thorax is grossly intact. Cholecystectomy clips are identified in the right upper quadrant. IMPRESSION: No active disease in the chest. Electronically signed by: Nilton Ramos M.D. Consultation: A consultation was placed with the hospitalist, Dr. Weaver. The case was discussed and diagnostics were reviewed. The patient was evaluated in the ER for further treatment. Exam and history seem consistent with recurrent pancreatitis. Patient was hydrated as above. She is still in severe amount of pain. She will be evaluated by medicine. Patient agrees to treatment plan of admission.By the evaluation outlined above emergent etiologies such as appendicitis, diverticulitis, PUD, biliary pathology, UTI, obstruction, mesenteric ischemia , aortic pathology, infections, inflammatory bowel disease, renal colic, as well as others were deemed relatively unlikely. The pt informed about the findings as listed above. All questions were answered and pleased with the treatment. Case reviewed with my attending. Medical Decision As above Impression Primary Impression: Pancreatitis Departure Information Dispostion Being Evaluated By Hospitalist Condition FAIR Referrals Marcelo Epps M.D. (PCP) Forms Call Back Authorization, HOME CARE DOCUMENTATION FORM, IMPORTANT VISIT INFORMATION Patient Instructions My [facility] Problem Qualifiers Primary Impression: Pancreatitis Chronicity: acute Pancreatitis type: alcohol induced Acute pancreatitis complication: unspecified Qualified Codes: K85.20 - Alcohol induced acute pancreatitis without necrosis or infection
[2017-03-15] MEDS ORDERED: MAGNESIUM HYDROXIDE SUSP 30 ML UDC PO PRN (00:30)
[2017-03-15] MEDS ORDERED: ONDANSETRON INJ 2 MG/ML 2 ML VIAL IV PRN (00:30)
[2017-03-15] MEDS ORDERED: ALBUTEROL HFA 8 GM INHALER INH PRN (00:30)
[2017-03-15] MEDS ORDERED: ZOLPIDEM TARTRATE 5 MG TAB PO PRN (00:30)
[2017-03-15] MEDS ORDERED: CARISOPRODOL 350 MG TAB PO PRN (00:30)
[2017-03-15] MEDS ORDERED: ACETAMINOPHEN 325 MG TAB PO PRN (00:30)
[2017-03-15] MEDS ORDERED: ALBUTEROL 0.083% NEBU SOLN 3 ML VIAL INH PRN (00:30)
[2017-03-15] MEDS ORDERED: RABE20TA5 PO (00:41)
[2017-03-15] MEDS ORDERED: UMEC1AER INH (00:41)
[2017-03-15 01:29] LABS: URINE APPEARANCE CLEAR (CLEAR); URINE BILIRUBIN NEG (NEG); URINE COLOR DK YELLOW; URINE NITRITE NEG (NEG); URINE SPECIFIC GRAVITY 1.038 (1.000-1.030); UROBILINOGEN NEG (NEG); ZZUR CULT IF INDIC CLEAN CATCH NO
[2017-03-15 01:33] LABS: MANUAL MICROSCOPIC REQUIRED? NO; REVIEW REQ? NO
[2017-03-15] MEDS ORDERED: ONDANSETRON INJ 2 MG/ML 2 ML VIAL ONE (01:34)
[2017-03-15] MEDS ORDERED: HYDROmorphone INJ 1 MG/ML SYR ONE (01:34)
[2017-03-15 01:56] VITALS: BP 151/83; PULSE 86; TEMP 36.7; O2SAT 95; Ht 165.1 cm; Wt 39.5 kg
[2017-03-15] MEDS: SODIUM CHLORIDE 0.9% 1000ML 1,000 ML IV SCH ×4 (02:38→21:43)
[2017-03-15] MEDS: OXYCODONE HCL IR 5 MG TAB (IMMEDIATE RELEASE) PO PRN ×5 (03:00→23:30)
--- NOTE | 2017-03-15 05:16 | HISTORY & PHYSICAL EXAMINATION ---
DATE OF ADMISSION: 03/15/2017 CHIEF COMPLAINT: Abdominal pain. HISTORY OF PRESENT ILLNESS: This is a 56-year-old female with past medical history significant for recurrent pancreatitis; COPD, ongoing tobacco abuse; alcohol abuse; chronic pain on narcotics; gastritis; depression, who presents with severe abdominal pain. The patient had two admissions, one in February 24 and other one on March 06 for pancreatitis and on 02/26/2017, CAT scan showed questionable soft tissue density within the superior mesenteric artery which was new finding and there was supposed to be a followup CAT scan with pancreas protocol in 1 month and also GI was planning to do an endoscopic ultrasound, which were scheduled as outpatient in March. The patient was discharged on March 07 and she had a followup appointment with family doctor also. She was doing okay, but again today she started to have severe abdominal pain in the epigastric and lower region, radiating to all of her abdomen, severe in nature, associated with some nausea, no vomiting, no fever, no chills, no chest pain, no cough, no shortness of breath, no headaches, no blurred visions, no diarrhea, no constipation. Normal bladder movements. Comes back to hospital and found to have elevated lipase. Currently resting, complaining of pain and requesting pain medications. Hemodynamics stable. ALLERGIES: TO PENICILLIN, CEPHALOSPORINS, DARVOCET, MORPHINE AND SULFA ANTIBIOTICS. PAST MEDICAL HISTORY: As mentioned above. PAST SURGICAL HISTORY: EGD with biopsy, laparoscopic cholecystectomy, ligation of the oviduct, removal of obstructed appendix, removal of lumbar spine lamina. MEDICATIONS: The patient is on Combivent 1 puff 4 times daily, lidocaine patch applied every 12 hours, aspirin 81 mg p.o. daily, prednisone rescue kit, Zithromax rescue kit, oxycodone ER 100 mg p.o. b.i.d., oxycodone IR 5 mg p.o. q. 4 hours p.r.n., Soma 350 mg p.o. daily p.r.n. for muscle spasms, Zantac 150 mg p.o. b.i.d., Ventolin 2 puffs every 4-6 hours p.r.n., albuterol DuoNebs nebulization every 4 hours p.r.n., Remeron 15 mg p.o. at bedtime, Ambien 5 mg p.o. at bedtime p.r.n., Anoro ellipta one puff daily, Loratadine 10 mg p.o. daily, Aciphex 20 mg p.o. daily, Colace 100 mg p.o. b.i.d., Oysco 500 plus D 1 tablet 3 times daily, oxygen 2 L at bedtime, Flonase 2 sprays each nostril daily, Phenergan 25 mg p.o. q. 6 hours p.r.n. FAMILY HISTORY: Significant for mother had blood clot in her heart, father had colon cancer, brother had lung and brain cancer. SOCIAL HISTORY: , smokes 1 pack a day for the last 41 years. Alcohol, says once in a while and she denies drinking alcohol since she was discharged on March 07. No drug abuse. REVIEW OF SYMPTOMS: As per HPI. Rest of review of symptoms negative. PHYSICAL EXAMINATION: GENERAL: The patient is thin and frail, not in distress. VITAL SIGNS: Temperature 37.1, pulse 78, respiratory rate 14, blood pressure 148/87, oxygen 97% room air. HEENT: No pallor, no icterus. Pupils equal, round, and reactive to light. NECK: No JVD, no neck masses, no carotid bruits. CARDIOVASCULAR: S1, S2 heard, regular rate and rhythm, no murmur, no gallop. RESPIRATORY SYSTEM: Normal AP diameter. No accessory muscle use. No wheezing, no crackles. ABDOMEN: Soft, bowel sounds present. Tenderness in the epigastric and umbilical, periumbilical region. No guarding, no rigidity. No distention. CENTRAL NERVOUS SYSTEM: Cranial nerves II-XII grossly intact. Nonfocal. EXTREMITIES: No edema. No erythema. LABORATORY DATA: WBC 14.8, hemoglobin 13.3, hematocrit 40, platelets 452. Sodium 138, potassium 3.7, chloride 99, bicarbonate 28, BUN 7, creatinine 0.5, serum glucose 101, calcium 8.6, magnesium 2.3, total bilirubin 0.4, direct bilirubin 0.2, AST 79, ALT 51, alkaline phosphatase 478, lipase 2136. PT 11.1, INR 1, PTT 23.5. alcohol level less than 3. IMAGING DATA: Chest x-ray, no acute disease in the chest. EKG, junctional rhythm with a rate of 73, nonspecific T-wave abnormalities. ASSESSMENT AND PLAN: This is a 56-year-old female who presents with abdominal pain. 1. Abdominal pain, recurrent pancreatitis. Lipase level in . The patient has multiple episodes of pancreatitis secondary to alcohol abuse, but the patient states since she was discharged on March 07, she did not drink any alcohol. Alcohol level is less than 3 in the ER. The patient was supposed to get a CAT scan in 1 month from February 26 when it was found to have soft tissue mass around superior mesenteric artery and also the patient is supposed to have an outpatient pancreatic endoscopic ultrasound scheduled for March. We will keep the patient currently n.p.o., IV fluids, IV antiemetics, IV pain medications. Repeat lipase in the a.m. Consult gastroenterology for further recommendations. The patient has chronic pain, continue on home pain medications. 2. Severe chronic obstructive pulmonary disease, continue her home nebulizations and inhalers. We will monitor in the hospital. She uses 2 L of oxygen at bedtime. 3. Tobacco use disorder, advised for cessation. 4. Alcohol abuse. The patient states she did not drink since she was discharged on March 07. Alcohol level is less than 3. 5. Gastritis, on Zantac. 6. Deep venous thrombosis prophylaxis, SCDs and TEDS. DISPOSITION: Admit to medical floor. Expect to discharge home and follow up with family doctor. Level 1 full code. MTDD
[2017-03-15] MEDS: HYDROmorphone INJ 1 MG/ML SYR IV PRN ×4 (05:42→20:52)
[2017-03-15] MEDS: ANORO ELLIPTA~ORDER AWAITING ACTION SCH ×3 (06:50→22:04)
[2017-03-15 07:10] VITALS: BP 153/93; PULSE 100; TEMP 36.9; O2SAT 98
[2017-03-15] MEDS: PANTOprazole SOD 40 MG TAB PO SCH (07:29)
[2017-03-15] MEDS: LIDODERM (LIDOCAINE) PATCH 5% TD SCH (07:29)
[2017-03-15] MEDS: RANITIDINE HCL 150 MG TAB PO SCH ×2 (07:29→20:51)
--- NOTE | 2017-03-15 07:44 | Gastrointestinal Consultation ---
Gastrointestinal Consultation Date of Consultation: March 15, 2017 Consulting Physician: Barrei Reason for Consultation: pancreatitis History of Present Illness Patient is a 56 year old female with PMH significant for COPD, chronic back pain on chronic narcotics, alcoholism and multiple admissions for ETOH pancreatitis, most recently 02/24/17 and 03/06/17. Since discharge on 03/07/17 patient tells me she has hot had any ETOH drink. Yesterday she was outset and had abrupt onset mid epigastric pain and radiated to her RUQ with associated nausea and vomiting. Emesis was yellow in appearance, no coffee ground or hematemesis. She does not have any fever, chills, chest pain. She had an episode of loose stools yesterday, nonbloody. No BM since. She is SOB, this is unchanged in comparison to her outpatient SOB. CT 02/24/17: Abnormal soft tissue density abutting the superior mesenteric artery which is new since CT of March 12, 2016. This finding is nonspecific and could reflect the sequela of pancreatitis or less likely hemorrhage. A neoplastic etiology could appear similar and therefore a follow-up CT of the abdomen pancreas protocol in one month is recommended. Findings discussed with Dr. Sauceda at time of dictation. Stable biliary ductal dilatation which is likely due to prior cholecystectomy. Mild wall thickening of the distal stomach. This could be due to underdistention or represent gastritis. Technically difficult study to interpret due to a paucity of intra-abdominal fat with diffuse mesenteric edema and trace ascites. Past Medical/Surgical History Medical Problems: (1) Abnormal liver function test Status: Acute (2) Chest pain Status: Acute (3) COPD exacerbation Status: Acute (4) Gastritis Status: Acute (5) Pancreatitis Status: Chronic (6) Pancreatitis Status: Acute (7) Pancreatitis, acute Status: Acute (8) Right upper quadrant abdominal pain Status: Acute Past Medical History: abnormal liver function test, COPD, Gastritis, Pancreatitis, ETOH abuse Past Surgical History: back surgery, cholecystectomy Family History Blood clots FH: colon cancer Social History Smoking Status: Current Every Day Smoker Alcohol Use: occasionally, heavy Drug Use: none Marital Status: Housing Status: lives with family Occupation Status: unemployed Allergies Coded Allergies: Morphine (Verified Allergy, Intermediate, hives, 03/14/17) Penicillins (Verified Allergy, Unknown, ., 03/14/17) Sulfa Antibiotics (Verified Allergy, Unknown, PERIORBITAL EDEMA, 03/14/17) Current Medications Home Meds and Scripts Medications Dose Route/Sig Max Daily Dose Days Date Category Dose Instructions Anoro Ellipta 62.5-25 Mcg/INH (Umeclidinium-Vilanterol) 1 Aer Aer 1 Puff INH DAILY 03/15/17 Rx Aciphex (Rabeprazole Sodium) 20 Mg Tab 20 Mg PO DAILY 03/15/17 Rx Lidoderm Patch 5% (Lidocaine) 1 Ea Tdsy 1 Patch TOP DAILY 03/05/17 Reported Ventolin Hfa (Albuterol) 200 Puffs/97613 Mcg Aers 2 Puffs INH Q6H PRN 12/20/16 Reported Proventil 0.083% 2.5MG/3ML (Albuterol Sulf) 2.5 Mg/3 Ml Nebu 2.5 Mg INH DIRECTED 12/20/16 Reported Zantac (Ranitidine HCl) 150 Mg Tab 150 Mg PO BID 03/23/16 Reported Oxygen Gas 2 Liters NA HS 09/17/15 Reported Oysco 500+D (Calcium Carbonate-Cholecalcife) 1 Chw Chw 1 Tab PO DAILY 09/17/15 Reported Docusate Sodium 100 Mg Cap 1 Cap PO BID 15 09/17/15 Reported Remeron (Mirtazapine) 15 Mg Tab 15 Mg PO HS 11/14/14 Reported Soma (Carisoprodol) 350 Mg Tab 350 Mg PO DAILY PRN 11/14/14 Reported Oxycodone HCl 5 Mg Tab 5 Mg PO Q4H PRN 11/14/14 Reported MAX= 6 TABLETS DAILY. Oxycontin (Oxycodone HCl) 40 Mg Tabcr 40 Mg PO Q12 11/14/14 Reported TAKE ONE 40 MG TABLET ALONG WITH ONE 60 MG TABLET TO EQUAL 100 MG DOSE. Combivent Respimat (Ipratropium-Albuterol) 1 Aer Aer 1 Puff INH QID 03/10/14 Reported Claritin (Loratadine) 10 Mg Tab 10 Mg PO DAILY 03/10/14 Reported Oxycontin (Oxycodone Hcl) 60 Mg Tab 60 Mg PO Q12 07/04/13 Reported TAKE ONE 60 MG TABLET ALONG WITH ONE 40 MG TABLET TO EQUAL 100 MG DOSE. Ambien (Zolpidem Tartrate) 5 Mg Tab 5 Mg PO HS PRN 04/12/12 Reported Review of Systems Constitutional: No chills, No fever Respiratory: + shortness of breath, No cough Abdomen: + nausea, + pain, No GI bleeding, No vomiting (no emesis since admission) Physical Exam Date Time Temp Pulse Resp B/P Pulse Ox O2 Delivery O2 Flow Rate FiO2 03/15/17 07:10 36.9 100 19 153/93 98 Nasal Cannula 1.0 03/15/17 01:56 36.7 86 18 151/83 95 Nasal Cannula 2.0 03/15/17 01:45 Nasal Cannula 2.0 03/15/17 01:23 82 14 151/89 98 Nasal Cannula 2.0 03/15/17 00:01 78 14 100 Nasal Cannula 2.0 03/15/17 00:01 78 18 88 Room Air 03/14/17 23:36 71 14 148/87 97 Room Air 03/14/17 22:31 154/90 03/14/17 22:16 96 Room Air 03/14/17 22:16 96 Room Air 03/14/17 22:15 76 18 98 03/14/17 22:10 79 17 96 03/14/17 22:09 151/85 03/14/17 21:48 79 03/14/17 21:44 147/91 03/14/17 21:40 37.1 79 17 147/91 96 Room Air General Appearance: + mild distress (pt appears uncomfortable, is at bedside) Eyes: PERRL ENT: hearing grossly normal Neck: supple Respiratory/Chest: no respiratory distress, no accessory muscle use, + decreased breath sounds, + pertinent finding (pt was not wearing O2, she was assisted in putting this back on) Cardiovascular: regular rate, rhythm, no gallop, no JVD, no murmur Abdomen: normal bowel sounds, soft, no organomegaly, no pulsatile mass, + tenderness (mid epigastric and RUQ to light touch) Neurologic/Psych: alert, normal mood/affect, oriented x 3 Skin: normal color, no jaundice, warm/dry Laboratory Results Last 24 Hours Test 03/14/17 21:17 03/14/17 22:13 03/15/17 00:10 03/15/17 07:03 White Blood Count 14.82 K/uL Red Blood Count 3.37 M/uL Hemoglobin 13.3 g/dL Hematocrit 40.0 % Mean Corpuscular Volume 118.7 fL Mean Corpuscular Hemoglobin 39.5 pg Mean Corpuscular Hemoglobin Concent 33.3 g/dl Platelet Count 452 K/uL Mean Platelet Volume 8.6 fL Neutrophils (%) (Auto) 65.7 % Lymphocytes (%) (Auto) 25.0 % Monocytes (%) (Auto) 8.0 % Eosinophils (%) (Auto) 0.7 % Basophils (%) (Auto) 0.3 % Neutrophils # (Auto) 9.75 K/uL Lymphocytes # (Auto) 3.70 K/uL Monocytes # (Auto) 1.19 K/uL Eosinophils # (Auto) 0.10 K/uL Basophils # (Auto) 0.04 K/uL RDW Standard Deviation 50.1 fL RDW Coefficient of Variation 11.6 % Immature Granulocyte % (Auto) 0.3 % Immature Granulocyte # (Auto) 0.04 K/uL Hypersegmented Polys 2+ Macrocytosis PRESENT Prothrombin Time 11.1 SECONDS Prothromb Time International Ratio 1.0 Activated Partial Thromboplast Time 23.5 SECONDS Partial Thromboplastin Ratio 0.9 Sodium Level 138 mmol/L Potassium Level 3.7 mmol/L Chloride Level 99 mmol/L Carbon Dioxide Level 28 mmol/L Anion Gap 11.0 mmol/L Blood Urea Nitrogen 7 mg/dl Creatinine 0.58 mg/dl Est Creatinine Clear Calc Drug Dose 69.1 ml/min Estimated GFR () 121.1 Estimated GFR (Non- 104.5 BUN/Creatinine Ratio 12.2 Random Glucose 101 mg/dl Calcium Level 8.6 mg/dl Magnesium Level 2.3 mg/dl Total Bilirubin 0.4 mg/dl Direct Bilirubin 0.2 mg/dl Aspartate Amino Transf (AST/SGOT) 79 U/L Alanine Aminotransferase (ALT/SGPT) 51 U/L Alkaline Phosphatase 478 U/L Troponin I < 0.015 ng/ml Total Protein 6.8 gm/dl Albumin 3.6 gm/dl Lipase 2136 U/L Ethyl Alcohol mg/dL < 3.0 mg/dl Urine Color DK YELLOW Urine Appearance CLEAR Urine pH 5.0 Urine Specific [place] 1.038 Urine Protein NEG Urine Glucose (UA) NEG Urine Ketones TRACE Urine Occult Blood NEG Urine Nitrite NEG Urine Bilirubin NEG Urine Urobilinogen NEG Urine Leukocyte Esterase NEG Impression Patient is a 56 year old female with a history of ETOH induced pancreatitis who presents through the ED for her third episode of pancreatitis in a month. There is epigastric abdominal pain radiating to her RUQ that is constant with associated nausea and resolved vomiting. Lipase on admission was 2136. No imaging was obtained. Plan NPO for bowel rest IVF 200mL/hr x 48 hours Pain medications PRN Antiemetics PRN CT abdomen w/ contrast today ATTESTATION: I have performed a history and physical examination of this patient and reviewed the electronic record. Specifically, on physical examination there is mild to moderate epigastric tenderness. I have discussed the case with YOSELYN Sebastian. The above note reflects my findings, conclusions, and recommendations. Fred Sood MD
[2017-03-15] MEDS: DOCUSATE SODIUM 100 MG CAP PO SCH ×2 (08:44→20:50)
[2017-03-15] MEDS: CALCIUM 600MG + VIT D 400 IU TAB PO SCH (08:44)
[2017-03-15] MEDS: LORATADINE 10 MG TAB PO SCH (08:44)
[2017-03-15] MEDS: IPRATROPIUM BROMIDE/ALBUTEROL respimat INH INH SCH ×4 (08:45→20:50)
[2017-03-15] MEDS: OXYCODONE HCL 20 MG TABCR (OXYCONTIN) PO SCH ×2 (08:45→20:51)
[2017-03-15] MEDS: OXYCODONE HCL 40 MG TABCR (OXYCONTIN) PO SCH ×2 (08:45→20:52)
[2017-03-15] MEDS ORDERED: OPTIRAY 320 IV PRN (13:00)
--- NOTE | 2017-03-15 15:01 | Progress Note ---
Internal Med Progress Note Date of Service: March 15, 2017. Provider Documentation: SUBJECTIVE: The patient was seen and examined Epigastric pain is better Denies any Nausea and or vomiting OBJECTIVE: Vital Signs-as noted below Exam: General-NO distress at rest Eyes-normal ENT-normal Neck-supple Lungs-Clear to auscultate bilaterally Heart-Regular,no murmur Abdomen-Soft,mildly tender in epigastrium Extremities-No edema Neuro-AAOx3 Lab data as noted below. ASSESSMENT & PLAN: Acute Recurrent Pancreatitis Likely secondary to Alcohol abuse Presented with Abdominal pain Lipase level in . This is the 3rd episode in 1 month CAT on 02/24/17: Abnormal soft tissue density abutting the superior mesenteric artery which is new since CT of March 12, 2016. This finding is nonspecific and could reflect the sequela of pancreatitis or less likely hemorrhage. A neoplastic etiology could appear similar and therefore a follow-up CT of the abdomen pancreas protocol in one month is recommended Patient is supposed to have an outpatient pancreatic endoscopic ultrasound scheduled for March. Repeat CT scan-pending Appreciate GI input NPO,Bowel test,IVF and pain medication Clinically better Severe chronic obstructive pulmonary disease, continue her home nebulizations and inhalers. She uses 2 L of oxygen at bedtime. Tobacco use disorder, advised for cessation. Alcohol abuse. The patient states she did not drink since she was discharged on March 07. Alcohol level is less than 3. Chronic pain On Narcotics Pain seems controlled Gastritis, on Zantac. Deep venous thrombosis prophylaxis, SCDs and TEDS. Vital Signs: Date Time Temp Pulse Resp B/P Pulse Ox O2 Delivery O2 Flow Rate FiO2 03/15/17 09:42 Nasal Cannula 2.0 03/15/17 07:10 36.9 100 19 153/93 98 Nasal Cannula 1.0 03/15/17 01:56 36.7 86 18 151/83 95 Nasal Cannula 2.0 03/15/17 01:45 Nasal Cannula 2.0 03/15/17 01:23 82 14 151/89 98 Nasal Cannula 2.0 03/15/17 00:01 78 14 100 Nasal Cannula 2.0 03/15/17 00:01 78 18 88 Room Air 03/14/17 23:36 71 14 148/87 97 Room Air 03/14/17 22:31 154/90 03/14/17 22:16 96 Room Air 03/14/17 22:16 96 Room Air 03/14/17 22:15 76 18 98 03/14/17 22:10 79 17 96 03/14/17 22:09 151/85 03/14/17 21:48 79 03/14/17 21:44 147/91 03/14/17 21:40 37.1 79 17 147/91 96 Room Air Lab Results: Results Past 24 Hours Test 03/14/17 21:17 03/14/17 22:13 03/15/17 00:10 03/15/17 07:03 Range/Units White Blood Count 14.82 4.8-10.8 K/uL Red Blood Count 3.37 4.2-5.4 M/uL Hemoglobin 13.3 12.0-16.0 g/dL Hematocrit 40.0 37-47 % Mean Corpuscular Volume 118.7 80-100 fL Mean Corpuscular Hemoglobin 39.5 25-34 pg Mean Corpuscular Hemoglobin Concent 33.3 32-36 g/dl Platelet Count 452 130-400 K/uL Mean Platelet Volume 8.6 7.4-10.4 fL Neutrophils (%) (Auto) 65.7 % Lymphocytes (%) (Auto) 25.0 % Monocytes (%) (Auto) 8.0 % Eosinophils (%) (Auto) 0.7 % Basophils (%) (Auto) 0.3 % Neutrophils # (Auto) 9.75 1.4-6.5 K/uL Lymphocytes # (Auto) 3.70 1.2-3.4 K/uL Monocytes # (Auto) 1.19 0.11-0.59 K/uL Eosinophils # (Auto) 0.10 0-0.5 K/uL Basophils # (Auto) 0.04 0-0.2 K/uL RDW Standard Deviation 50.1 36.4-46.3 fL RDW Coefficient of Variation 11.6 11.5-14.5 % Immature Granulocyte % (Auto) 0.3 % Immature Granulocyte # (Auto) 0.04 0.00-0.02 K/uL Hypersegmented Polys 2+ Macrocytosis PRESENT Prothrombin Time 11.1 9.0-12.0 SECONDS Prothromb Time International Ratio 1.0 0.9-1.1 Activated Partial Thromboplast Time 23.5 21.0-31.0 SECONDS Partial Thromboplastin Ratio 0.9 Sodium Level 138 136-145 mmol/L Potassium Level 3.7 3.5-5.1 mmol/L Chloride Level 99 98-107 mmol/L Carbon Dioxide Level 28 21-32 mmol/L Anion Gap 11.0 3-11 mmol/L Blood Urea Nitrogen 7 7-18 mg/dl Creatinine 0.58 0.60-1.20 mg/dl Est Creatinine Clear Calc Drug Dose 69.1 ml/min Estimated GFR () 121.1 Estimated GFR (Non- 104.5 BUN/Creatinine Ratio 12.2 10-20 Random Glucose 101 70-99 mg/dl Calcium Level 8.6 8.5-10.1 mg/dl Magnesium Level 2.3 1.8-2.4 mg/dl Total Bilirubin 0.4 0.2-1 mg/dl Direct Bilirubin 0.2 0-0.2 mg/dl Aspartate Amino Transf (AST/SGOT) 79 15-37 U/L Alanine Aminotransferase (ALT/SGPT) 51 12-78 U/L Alkaline Phosphatase 478 45-117 U/L Troponin I < 0.015 0-0.045 ng/ml Total Protein 6.8 6.4-8.2 gm/dl Albumin 3.6 3.4-5.0 gm/dl Lipase 2136 1299 73-393 U/L Ethyl Alcohol mg/dL < 3.0 0-3 mg/dl Urine Color DK YELLOW Urine Appearance CLEAR CLEAR Urine pH 5.0 4.5-7.5 Urine Specific [place] 1.038 1.000-1.030 Urine Protein NEG NEG Urine Glucose (UA) NEG NEG Urine Ketones TRACE NEG Urine Occult Blood NEG NEG Urine Nitrite NEG NEG Urine Bilirubin NEG NEG Urine Urobilinogen NEG NEG Urine Leukocyte Esterase NEG NEG
--- NOTE | 2017-03-15 15:27 | DIAGNOSTIC IMAGING REPORT ---
CT SCAN OF THE ABDOMEN AND PELVIS WITH IV CONTRAST CLINICAL HISTORY: Epigastric abdominal pain. Nausea. Elevated lipase. COMPARISON STUDY: Prior abdominal CT scans, most recently dated 02/24/2017. TECHNIQUE: Following the IV administration of 80 cc of Optiray 320, CT scan of the abdomen and pelvis is performed from the lung bases to the proximal femora. Images are reviewed in the axial, sagittal, and coronal planes. IV contrast was administered without complication. Automated dose control exposure was utilized. CT DOSE: 245.45 mGy.cm FINDINGS: Lung bases: The heart is normal in size and without pericardial effusion. There are trace pleural effusions and dependent atelectasis. Advanced emphysema is seen at the lung bases. No airspace consolidation is identified typical for pneumonia. Liver: The contrast-enhanced liver is mildly enlarged measuring 18.8 cm in length. The liver is otherwise normal in contour and attenuation. There is mild to moderate intrahepatic biliary ductal dilatation. A 7 mm low suspicion low-attenuation lesion is again seen in the left lobe on image #47. The hepatic veins and portal veins are patent. Gallbladder: Surgically absent noting clips in the gallbladder fossa. Spleen: Normal in size and attenuation. Pancreas: The pancreas is atrophic. The gland enhances homogenously. There is diffuse peripancreatic edema and fluid. This is confirmed with fluid and edema present throughout the mesentery. The splenic vein is patent. Adrenal glands: Unremarkable. Kidneys: The contrast enhanced kidneys are normal in size and without hydronephrosis. The kidneys enhance symmetrically. Abdominal vasculature: The abdominal aorta is normal in course and caliber noting moderate atherosclerotic calcification. Bowel: The small bowel and colon are normal in course and caliber. The appendix is not identified and reported surgically absent. Peritoneum: No intraperitoneal free air is seen. There is a small volume of abdominopelvic ascites. There is diffuse mesenteric edema. There are lobulated ill-defined low density structures seen anterior to the superior mesenteric artery an in the aneudy hepatis/peripancreatic region. A tiny lesion/collection is seen in the aneudy hepatis on image #123 measures up to 1.6 cm. A tiny lobulated lesion/collection is suggested posterior to the superior mesenteric vein on image #142 and measures up to 1.2 cm. Lymphadenopathy: None. Pelvic viscera: The bladder appears circumferentially thick walled. The uterus and adnexa are normal as visualized. Skeletal structures: The skeletal structures are osteopenic. No lytic or blastic lesions are seen. Postoperative change is seen at L5-S1. Soft tissues: The patient is cachectic. IMPRESSION: 1. The pancreas is atrophic and the gland enhances homogeneously. There is surrounding peripancreatic edema and fluid, which is confluent with edema and fluid throughout the mesentery. Acute pancreatitis could have this appearance and clinical/laboratory correlation will be required. This is similar in appearance to the 02/24/2017 examination. 2. There are small ill-defined lobulated low-density structures/fluid collections identified in the aneudy hepatis and peripancreatic region as above. The largest measures up to 1.6 cm. These are of indeterminant etiology and significance, and could represent tiny pancreatic pseudocysts or possibly necrotic lymph nodes. A follow-up abdominal CT scan in 4-8 weeks is recommended for reassessment. Endoscopic ultrasound could also be considered for further interrogation. 3. There is a small volume of abdominopelvic ascites. 4. Status post cholecystectomy. Intra and extrahepatic biliary ductal dilatation is unchanged. 5. Advanced emphysema. 6. Trace pleural effusions. 7. The bladder appears circumferentially thick walled. Cortical clinically and with urinalysis for evidence of cystitis. 8. Additional findings as above. Electronically signed by: Nilton Ramos M.D. 03/15/2017 3:26 PM Dictated Date/Time: 03/15/2017 3:11 PM
[2017-03-15 15:46] VITALS: BP 123/64; PULSE 102; TEMP 36.5; O2SAT 100
[2017-03-15] MEDS: ALUMINUM/MAGNESIUM/SIMETH (MAALOX MAX) 30 ML UDC PO PRN ×2 (16:57→21:44)
[2017-03-15] MEDS ORDERED: MIRTAZAPINE TAB 15 MG TAB PO SCH (21:00)
[2017-03-15 23:23] VITALS: BP 137/80; PULSE 92; TEMP 36.8; O2SAT 93
[2017-03-16] MEDS: HYDROmorphone INJ 1 MG/ML SYR IV PRN (01:04)
[2017-03-16] MEDS ORDERED: NICOTINE 14 MG/24 HR TDSY TD ONE (01:24)
[2017-03-16] MEDS ORDERED: GABAPENTIN 800 MG TAB PO STA (01:27)
[2017-03-16] MEDS ORDERED: LORAZEPAM 2 MG/ML 1 ML VIAL IV PRN (01:30)
[2017-03-16 02:13] VITALS: BP 136/78; PULSE 108; TEMP 36.6; O2SAT 97
[2017-03-16] MEDS: SODIUM CHLORIDE 0.9% 1000ML 1,000 ML IV SCH ×2 (04:45→11:19)
[2017-03-16] MEDS ORDERED: LORAZEPAM 1MG IV PHA DISPENSED IV PRN (05:45)
[2017-03-16 05:58] VITALS: BP 102/66; PULSE 106; TEMP 36.9; O2SAT 90
[2017-03-16] MEDS: OXYCODONE HCL IR 5 MG TAB (IMMEDIATE RELEASE) PO PRN ×2 (06:06→11:19)
[2017-03-16 07:09] VITALS: BP 94/55; PULSE 105; TEMP 36.9; O2SAT 91
--- NOTE | 2017-03-16 07:32 | Gastroenterology Progress Note ---
Progress Note Date of Service: March 16, 2017 Subjective Pt evaluation today including: conversation w/ patient, conversation w/ family , physical exam, chart review, lab review Pt was seen and examined this AM. She had a liquid diet last night and this AM and was feeling well. Denies any epigastric or RUQ pain. Her diet was not advanced to regular low fat yet. She is having abdominal bloating. + gas. No BM since admission. CT yesterday without any dilation of bowel loops or obstruction. Overall feels well, wants to go home. Denies fever, chills, chest pain, SOB, abdominal pain, N/V/D. CT abd/pelvis 03/16/17: The pancreas is atrophic and the gland enhances homogeneously. There is surrounding peripancreatic edema and fluid, which is confluent with edema and fluid throughout the mesentery. Acute pancreatitis could have this appearance and clinical/laboratory correlation will be required. This is similar in appearance to the 02/24/2017 examination. There are small ill-defined lobulated low-density structures/fluid collections identified in the aneudy hepatis and peripancreatic region as above. The largest measures up to 1.6 cm. These are of indeterminant etiology and significance, and could represent tiny pancreatic pseudocysts or possibly necrotic lymph nodes. A follow -up abdominal CT scan in 4-8 weeks is recommended for reassessment. Endoscopic ultrasound could also be considered for further interrogation There is a small volume of abdominopelvic ascites. Status post cholecystectomy. Intra and extrahepatic biliary ductal dilatation is unchanged. Advanced emphysema. Trace pleural effusions.The bladder appears circumferentially thick walled. Cortical clinically and with urinalysis for evidence of cystitis. Review of Systems Constitutional: No chills, No fever Respiratory: No cough, No shortness of breath Cardiac: No chest pain Abdomen: + problem reported (abdominal bloating), No constipation, No diarrhea , No nausea, No pain, No vomiting Medications Current Inpatient Medications Medications (Trade) Dose Ordered Sig/Jonathon Route Start Time Stop Time Status Last Admin Dose Admin Acetaminophen (Tylenol Tab) 650 mg Q4H PRN PO 03/15/17 00:30 04/14/17 00:29 Al Hydrox/Mg Hydrox/Simethicone (Maalox Max Susp) 15 ml Q4H PRN PO 03/15/17 00:30 04/14/17 00:29 03/15/17 21:44 15 ML Magnesium Hydroxide (Milk Of Magnesia Susp) 30 ml Q6H PRN PO 03/15/17 00:30 04/14/17 00:29 Ondansetron HCl (Zofran Inj) 4 mg Q6H PRN IV 03/15/17 00:30 04/14/17 00:29 03/15/17 22:03 4 MG Albuterol (Ventolin Hfa Inhaler) 2 puffs Q6H PRN INH 03/15/17 00:30 04/14/17 00:29 Albuterol Sulfate (Ventolin 0.083% 2.5MG/3ML Neb) 2.5 mg Q4 PRN INH 03/15/17 00:30 04/14/17 00:29 Carisoprodol (Soma Tab) 350 mg DAILY PRN PO 03/15/17 00:30 04/14/17 00:29 Docusate Sodium (coLACE CAP) 100 mg BID PO 03/15/17 09:00 04/14/17 08:59 03/15/17 20:50 100 MG Albuterol/ Ipratropium (Combivent Respimat Inh) 1 puffs QID INH 03/15/17 09:00 04/14/17 08:59 03/15/17 20:50 1 PUFFS Lidocaine (Lidoderm Patch 5%) 1 patch DAILY TD 03/15/17 09:00 04/14/17 08:59 03/15/17 07:29 1 PATCH Loratadine (Claritin Tab) 10 mg DAILY PO 03/15/17 09:00 04/14/17 08:59 03/15/17 08:44 10 MG Mirtazapine (Remeron Tab) 15 mg HS PO 03/15/17 21:00 04/14/17 20:59 03/15/17 20:51 15 MG Oxycodone HCl (Roxicodone Immediate Rel Tab) 5 mg Q4H PRN PO 03/15/17 00:30 03/29/17 00:29 03/16/17 06:06 5 MG Oxycodone HCl (Oxycontin Tab) 40 mg Q12 PO 03/15/17 09:00 03/29/17 08:59 03/15/17 20:52 40 MG Oxycodone HCl (Oxycontin Tab) 60 mg Q12 PO 03/15/17 09:00 03/29/17 08:59 03/15/17 20:51 60 MG Ranitidine HCl (zANTac TAB) 150 mg BID PO 03/15/17 09:00 04/14/17 08:59 03/15/17 20:51 150 MG Zolpidem Tartrate (Ambien Tab) 5 mg HS PRN PO 03/15/17 00:30 04/14/17 00:29 03/15/17 21:44 5 MG Calcium/Vitamin D 1 tab 1 tab DAILY PO 03/15/17 09:00 04/14/17 08:59 03/15/17 08:44 1 TAB Sodium Chloride (Nss 1000ml) 1,000 ml @ 150 mls/hr Q6H40M IV 03/15/17 02:00 04/14/17 01:59 03/16/17 04:45 150 MLS/HR Miscellaneous (Remove Lidoderm Patch) 1 ea DAILY@21 N/A 03/15/17 21:00 04/14/17 20:59 03/15/17 20:44 1 EA Hydromorphone HCl (Dilaudid Inj) 1 mg Q4 PRN IV 03/15/17 00:30 03/29/17 00:29 03/16/17 01:04 1 MG Pantoprazole Sodium (Protonix Tab) 40 mg QAM PO 03/15/17 09:00 04/14/17 08:59 03/15/17 07:29 40 MG Miscellaneous Information (Order Awaiting Action) 1 ea QS N/A 03/15/17 08:00 04/14/17 07:59 Ioversol (Optiray 320) 125 ml UD PRN IV 03/15/17 13:00 03/19/17 12:59 Lorazepam (Ativan Inj) PRN Dosing -Active Protocol Q1H PRN IV 03/16/17 01:30 04/15/17 01:29 Nicotine (Nicoderm Cq 14MG Patch) 1 patch QAM TD 03/17/17 09:00 04/16/17 08:59 Miscellaneous (Remove Nicoderm Patch) 1 ea HS N/A 03/16/17 21:00 04/15/17 20:59 Gabapentin (Neurontin Cap) 400 mg Q6H PO 03/16/17 08:00 03/16/17 14:01 Gabapentin (Neurontin Cap) 400 mg Q8H PO 03/16/17 22:00 03/17/17 14:01 Gabapentin (Neurontin Cap) 400 mg Q12H PO 03/18/17 02:00 03/18/17 14:01 Gabapentin 400 mg 400 mg TODAY@1400 PO 03/19/17 14:00 03/19/17 14:01 Lorazepam/Syringe (Ativan Inj/ Syringe) 1 ml @ 1 mls/min Q1H PRN IV 03/16/17 05:45 04/15/17 05:44 Objective Vital Signs Date Time Temp Pulse Resp B/P Pulse Ox O2 Delivery O2 Flow Rate FiO2 03/16/17 07:09 36.9 105 19 94/55 91 Room Air 03/16/17 05:58 36.9 106 16 102/66 90 Room Air 03/16/17 02:13 36.6 108 18 136/78 97 Room Air 03/15/17 23:23 36.8 92 14 137/80 93 Nasal Cannula 1.0 03/15/17 19:05 Room Air 03/15/17 16:00 Room Air 03/15/17 15:46 36.5 102 16 123/64 100 Room Air 03/15/17 09:42 Nasal Cannula 2.0 Physical Exam General Appearance: no apparent distress Eyes: PERRL ENT: hearing grossly normal Neck: supple Respiratory/Chest: lungs clear, no accessory muscle use Cardiovascular: regular rate, rhythm Abdomen: normal bowel sounds, non tender, soft, no organomegaly, no pulsatile mass, + distended (but not tense) Neurologic/Psych: alert, normal mood/affect, oriented x 3 Skin: normal color Laboratory Results Last 24 Hours Test 03/16/17 04:44 Assessment and Plan Patient is a 56 year old female with a history of ETOH induced pancreatitis who presents through the ED for her third episode of pancreatitis in a month. There is epigastric abdominal pain radiating to her RUQ that is constant with associated nausea and resolved vomiting. Lipase on admission was 2136. No imaging was obtained. Doing well on clear liquids. No epigastric or RUQ pain. + bloating + gas No BM since admission. Plan IVF 200mL/hr x 48 hours Pain medications PRN Antiemetics PRN Low fat diet as tolerated Simethicone PRN Miralax PRN GI to sign off. No GI contraindication to discharge if pt tolerates low fat diet well. ATTESTATION: I have performed a history and physical examination of this patient and reviewed the electronic record. Specifically, on physical examination there is no abdominal tenderness. I have discussed the case with YOSELYN Sebastian. The above note reflects my findings, conclusions, and recommendations. Fred Sood MD
[2017-03-16] MEDS: ANORO ELLIPTA~ORDER AWAITING ACTION SCH (08:00)
[2017-03-16 08:13] LABS: BASO % 0.5 %; BASO ABS # 0.04 K/uL (0-0.2); EOS % 2.6 %; HEMATOCRIT 32.7 % (37-47); IG% 0.1 %; LYMPH % 25.5 %; LYMPH ABS # 2.22 K/uL (1.2-3.4); MEAN CELL VOLUME 119.8 fL (80-100); MEAN CORPUSCULAR HEMOGLOBIN 39.6 pg (25-34); MEAN PLATELET VOLUME 8.2 fL (7.4-10.4); MONO % 8.9 %; NEUT % 62.4 %; PLATELET COUNT 305 K/uL (130-400); RED BLOOD COUNT 2.73 M/uL (4.2-5.4); WHITE BLOOD COUNT 8.72 K/uL (4.8-10.8)
[2017-03-16 08:49] LABS: COMPLETE YES
[2017-03-16 08:58] LABS: BLOOD UREA NITROGEN 2 mg/dl (7-18); BUN/CREATININE RATIO 6.6 (10-20); CALCIUM 7.5 mg/dl (8.5-10.1); CARBON DIOXIDE 27 mmol/L (21-32); CHLORIDE 110 mmol/L (98-107); CREATININE 0.29 mg/dl (0.60-1.20); GLUCOSE 86 mg/dl (70-99); MAGNESIUM 2.4 mg/dl (1.8-2.4); POTASSIUM 3.7 mmol/L (3.5-5.1); SODIUM 143 mmol/L (136-145)
[2017-03-16] MEDS: GABAPENTIN 400 MG CAP PO SCH ×2 (09:34→13:32)
[2017-03-16] MEDS: IPRATROPIUM BROMIDE/ALBUTEROL respimat INH INH SCH ×2 (09:34→13:32)
[2017-03-16] MEDS: CALCIUM 600MG + VIT D 400 IU TAB PO SCH (09:35)
[2017-03-16] MEDS: RANITIDINE HCL 150 MG TAB PO SCH (09:35)
[2017-03-16] MEDS: LORATADINE 10 MG TAB PO SCH (09:35)
[2017-03-16] MEDS: DOCUSATE SODIUM 100 MG CAP PO SCH (09:35)
[2017-03-16] MEDS: PANTOprazole SOD 40 MG TAB PO SCH (09:35)
[2017-03-16] MEDS: OXYCODONE HCL 40 MG TABCR (OXYCONTIN) PO SCH (09:36)
[2017-03-16] MEDS: OXYCODONE HCL 20 MG TABCR (OXYCONTIN) PO SCH (09:36)
[2017-03-16] MEDS: LIDODERM (LIDOCAINE) PATCH 5% TD SCH (09:38)
[2017-03-16] MEDS ORDERED: SIMETHICONE 80 MG CHEW PO PRN (09:45)
[2017-03-16 15:15] VITALS: BP 104/63; PULSE 109; TEMP 36.7; O2SAT 91
--- NOTE | 2017-03-16 15:34 | Progress Note ---
Internal Med Progress Note Date of Service: March 16, 2017. Provider Documentation: SUBJECTIVE: The patient was seen and examined Epigastric pain is RESOLVED Denies any Nausea and or vomiting Tolerating regular diet Will discharge home OBJECTIVE: Vital Signs-as noted below Exam: General-NO distress at rest Eyes-normal ENT-normal Neck-supple Lungs-Clear to auscultate bilaterally Heart-Regular,no murmur Abdomen-Soft,mildly tender in epigastrium Extremities-No edema Neuro-AAOx3 Lab data as noted below. ASSESSMENT & PLAN: Acute Recurrent Pancreatitis Likely secondary to Alcohol abuse Presented with Abdominal pain Lipase level in . This is the 3rd episode in 1 month CAT on 02/24/17: Abnormal soft tissue density abutting the superior mesenteric artery which is new since CT of March 12, 2016. This finding is nonspecific and could reflect the sequela of pancreatitis or less likely hemorrhage. A neoplastic etiology could appear similar and therefore a follow-up CT of the abdomen pancreas protocol in one month is recommended Patient is supposed to have an outpatient pancreatic endoscopic ultrasound scheduled for March. Repeat CT scan-pending Appreciate GI input NPO,Bowel test,IVF and pain medication Tolerating Low fat regular diet Ambulating without any difficulty Will discharge home today Severe chronic obstructive pulmonary disease, continue her home nebulizations and inhalers. She uses 2 L of oxygen at bedtime. No acute issue Tobacco use disorder, advised for cessation. Alcohol abuse. The patient states she did not drink since she was discharged on March 07. Alcohol level is less than 3. ADVISED REPEATEDLY TO QUIT DRINKING ALCOHOL Chronic pain On Narcotics Pain seems controlled Gastritis, on Zantac. Deep venous thrombosis prophylaxis, SCDs and TEDS. Vital Signs: Date Time Temp Pulse Resp B/P Pulse Ox O2 Delivery O2 Flow Rate FiO2 03/16/17 15:38 36.7 109 18 91 Room Air 03/16/17 15:15 36.7 109 18 104/63 91 Room Air 03/16/17 08:15 Room Air 03/16/17 07:09 36.9 105 19 94/55 91 Room Air 03/16/17 05:58 36.9 106 16 102/66 90 Room Air 03/16/17 02:13 36.6 108 18 136/78 97 Room Air 03/15/17 23:23 36.8 92 14 137/80 93 Nasal Cannula 1.0 03/15/17 19:05 Room Air 03/15/17 16:00 Room Air Lab Results: Results Past 24 Hours Test 03/16/17 07:37 Range/Units White Blood Count 8.72 4.8-10.8 K/uL Red Blood Count 2.73 4.2-5.4 M/uL Hemoglobin 10.8 12.0-16.0 g/dL Hematocrit 32.7 37-47 % Mean Corpuscular Volume 119.8 80-100 fL Mean Corpuscular Hemoglobin 39.6 25-34 pg Mean Corpuscular Hemoglobin Concent 33.0 32-36 g/dl Platelet Count 305 130-400 K/uL Mean Platelet Volume 8.2 7.4-10.4 fL Neutrophils (%) (Auto) 62.4 % Lymphocytes (%) (Auto) 25.5 % Monocytes (%) (Auto) 8.9 % Eosinophils (%) (Auto) 2.6 % Basophils (%) (Auto) 0.5 % Neutrophils # (Auto) 5.44 1.4-6.5 K/uL Lymphocytes # (Auto) 2.22 1.2-3.4 K/uL Monocytes # (Auto) 0.78 0.11-0.59 K/uL Eosinophils # (Auto) 0.23 0-0.5 K/uL Basophils # (Auto) 0.04 0-0.2 K/uL RDW Standard Deviation 50.8 36.4-46.3 fL RDW Coefficient of Variation 11.6 11.5-14.5 % Immature Granulocyte % (Auto) 0.1 % Immature Granulocyte # (Auto) 0.01 0.00-0.02 K/uL Macrocytosis PRESENT Sodium Level 143 136-145 mmol/L Potassium Level 3.7 3.5-5.1 mmol/L Chloride Level 110 98-107 mmol/L Carbon Dioxide Level 27 21-32 mmol/L Anion Gap 6.0 3-11 mmol/L Blood Urea Nitrogen 2 7-18 mg/dl Creatinine 0.29 0.60-1.20 mg/dl Est Creatinine Clear Calc Drug Dose 138.3 ml/min Estimated GFR () > 150.0 Estimated GFR (Non- 131.3 BUN/Creatinine Ratio 6.6 10-20 Random Glucose 86 70-99 mg/dl Calcium Level 7.5 8.5-10.1 mg/dl Magnesium Level 2.4 1.8-2.4 mg/dl
--- NOTE | 2017-03-16 15:37 | Discharge Instructions ---
Discharge Instructions Date of Service March 16, 2017. Admission Reason for Admission: Abdominal Pain, Panceatitis Discharge Discharge Diagnosis / Problem: Acute Recurrent pancreatitis Discharge Goals Goal(s): Prevent Disease Progression Activity Recommendations Activity Limitations: resume your previous activity . Instructions / Follow-Up Instructions / Follow-Up Keep your appointments.PLEASE DO NOT DRINK ANY ALCOHOL Current Hospital Diet Patient's current hospital diet: Low Fat Diet, Regular Diet Discharge Diet Recommended Diet: Regular Diet, Low Fat Diet Pending Studies Studies pending at discharge: no Medical Emergencies . Who to Call and When: Medical Emergencies: If at any time you feel your situation is an emergency, please call 911 immediately. . Non-Emergent Contact Non-Emergency issues call your: Primary Care Provider . Past History Medical & Surgical History: (1) Abdominal pain (2) Pancreatitis (3) Back pain (4) COPD (chronic obstructive pulmonary disease) (5) ABN LIVER FUNCTION STUDY (6) CHRONIC OBSTRUCTIVE ASTHMA, NOS (7) Osteoporosis (8) DEPRESSIVE DISORDER NEC (9) EMPHYSEMA NEC (10) TOBACCO USE DISORDER (11) Hx of appendectomy (12) H/o lumbar spinal surgery (13) H/O tubal ligation (14) S/p placement of lumbar electrical stimulator (15) Hx of cholecystectomy . "Provider Documentation" section prepared by Sweetie Lloyd. . VTE Core Measure Inpt VTE Proph given/why not?: SCD's
[2017-03-16 15:38] VITALS: BP 104/63; PULSE 109; TEMP 36.7; O2SAT 91
--- NOTE | 2017-03-16 18:25 | Discharge Summary ---
Discharge Summary Date of Service March 16, 2017. Discharge Summary Admission Date: March 15, 2017 at 00:37 Discharge Date: March 16, 2017 Discharge Disposition: Home Principal Diagnosis: Abdominal Pain, Pancreatitis Secondary Diagnoses/Problems: Please see H&P and Hospital Progress note Consultations: GI Medication Reconciliation Continued Medications: Albuterol Hfa (Ventolin Hfa) 200 Puffs/11219 Mcg Aers 2 PUFFS INH Q6H PRN for SOB/Wheezing, #1 INHALER Albuterol Sulf (Proventil 0.083% 2.5MG/3ML) 2.5 Mg/3 Ml Nebu 2.5 MG INH DIRECTED for wheezing, EA Calcium Carbonate-Cholecalcife (Oysco 500+D) 1 Chw Chw 1 TAB PO DAILY Carisoprodol (Soma) 350 Mg Tab 350 MG PO DAILY PRN for Muscle Spasm, TAB Docusate Sodium (Docusate Sodium) 100 Mg Cap 1 CAP PO BID for 15 Days, #30 CAP Ipratropium-Albuterol (Combivent Respimat) 1 Aer Aer 1 PUFF INH QID, INH Lidocaine (Lidoderm Patch 5%) 1 Ea Tdsy 1 PATCH TOP DAILY Loratadine (Claritin) 10 Mg Tab 10 MG PO DAILY, TAB Mirtazapine (Remeron) 15 Mg Tab 15 MG PO HS, TAB Oxycodone Hcl (Oxycontin) 60 Mg Tab 60 MG PO Q12, TAB TAKE ONE 60 MG TABLET ALONG WITH ONE 40 MG TABLET TO EQUAL 100 MG DOSE. Oxycodone HCl (Oxycontin) 40 Mg Tabcr 40 MG PO Q12 TAKE ONE 40 MG TABLET ALONG WITH ONE 60 MG TABLET TO EQUAL 100 MG DOSE. Oxycodone HCl (Oxycodone HCl) 5 Mg Tab 5 MG PO Q4H PRN for Pain MAX= 6 TABLETS DAILY. Oxygen (Oxygen) Gas 2 LITERS NA HS Rabeprazole Sodium (Aciphex) 20 Mg Tab 20 MG PO DAILY, #30 TAB Ranitidine (Zantac) 150 Mg Tab 150 MG PO BID, TAB Umeclidinium-Vilanterol (Anoro Ellipta 62.5-25 Mcg/INH) 1 Aer Aer 1 PUFF INH DAILY, #1 Zolpidem Tartrate (Ambien) 5 Mg Tab 5 MG PO HS PRN for Sleep, TAB Admission Information HPI (per Admitting provider): DATE OF ADMISSION: 03/15/2017 CHIEF COMPLAINT: Abdominal pain. HISTORY OF PRESENT ILLNESS: This is a 56-year-old female with past medical history significant for recurrent pancreatitis; COPD, ongoing tobacco abuse; alcohol abuse; chronic pain on narcotics; gastritis; depression, who presents with severe abdominal pain. The patient had two admissions, one in February 24 and other one on March 06 for pancreatitis and on 02/26/2017, CAT scan showed questionable soft tissue density within the superior mesenteric artery which was new finding and there was supposed to be a followup CAT scan with pancreas protocol in 1 month and also GI was planning to do an endoscopic ultrasound, which were scheduled as outpatient in March. The patient was discharged on March 07 and she had a followup appointment with family doctor also. She was doing okay, but again today she started to have severe abdominal pain in the epigastric and lower region, radiating to all of her abdomen, severe in nature, associated with some nausea, no vomiting, no fever, no chills, no chest pain, no cough, no shortness of breath, no headaches, no blurred visions, no diarrhea, no constipation. Normal bladder movements. Comes back to hospital and found to have elevated lipase. Currently resting, complaining of pain and requesting pain medications. Hemodynamics stable. ALLERGIES: TO PENICILLIN, CEPHALOSPORINS, DARVOCET, MORPHINE AND SULFA ANTIBIOTICS. PAST MEDICAL HISTORY: As mentioned above. PAST SURGICAL HISTORY: EGD with biopsy, laparoscopic cholecystectomy, ligation of the oviduct, removal of obstructed appendix, removal of lumbar spine lamina. MEDICATIONS: The patient is on Combivent 1 puff 4 times daily, lidocaine patch applied every 12 hours, aspirin 81 mg p.o. daily, prednisone rescue kit, Zithromax rescue kit, oxycodone ER 100 mg p.o. b.i.d., oxycodone IR 5 mg p.o. q. 4 hours p.r.n., Soma 350 mg p.o. daily p.r.n. for muscle spasms, Zantac 150 mg p.o. b.i.d., Ventolin 2 puffs every 4-6 hours p.r.n., albuterol DuoNebs nebulization every 4 hours p.r.n., Remeron 15 mg p.o. at bedtime, Ambien 5 mg p.o. at bedtime p.r.n., Anoro ellipta one puff daily, Loratadine 10 mg p.o. daily, Aciphex 20 mg p.o. daily, Colace 100 mg p.o. b.i.d., Oysco 500 plus D 1 tablet 3 times daily, oxygen 2 L at bedtime, Flonase 2 sprays each nostril daily, Phenergan 25 mg p.o. q. 6 hours p.r.n. FAMILY HISTORY: Significant for mother had blood clot in her heart, father had colon cancer, brother had lung and brain cancer. SOCIAL HISTORY: , smokes 1 pack a day for the last 41 years. Alcohol, says once in a while and she denies drinking alcohol since she was discharged on March 07. No drug abuse. REVIEW OF SYMPTOMS: As per HPI. Rest of review of symptoms negative. PHYSICAL EXAMINATION: GENERAL: The patient is thin and frail, not in distress. VITAL SIGNS: Temperature 37.1, pulse 78, respiratory rate 14, blood pressure 148/87, oxygen 97% room air. HEENT: No pallor, no icterus. Pupils equal, round, and reactive to light. NECK: No JVD, no neck masses, no carotid bruits. CARDIOVASCULAR: S1, S2 heard, regular rate and rhythm, no murmur, no gallop. RESPIRATORY SYSTEM: Normal AP diameter. No accessory muscle use. No wheezing, no crackles. ABDOMEN: Soft, bowel sounds present. Tenderness in the epigastric and umbilical, periumbilical region. No guarding, no rigidity. No distention. CENTRAL NERVOUS SYSTEM: Cranial nerves II-XII grossly intact. Nonfocal. EXTREMITIES: No edema. No erythema. LABORATORY DATA: WBC 14.8, hemoglobin 13.3, hematocrit 40, platelets 452. Sodium 138, potassium 3.7, chloride 99, bicarbonate 28, BUN 7, creatinine 0.5, serum glucose 101, calcium 8.6, magnesium 2.3, total bilirubin 0.4, direct bilirubin 0.2, AST 79, ALT 51, alkaline phosphatase 478, lipase 2136. PT 11.1, INR 1, PTT 23.5. alcohol level less than 3. IMAGING DATA: Chest x-ray, no acute disease in the chest. EKG, junctional rhythm with a rate of 73, nonspecific T-wave abnormalities. ASSESSMENT AND PLAN: This is a 56-year-old female who presents with abdominal pain. 1. Abdominal pain, recurrent pancreatitis. Lipase level in . The patient has multiple episodes of pancreatitis secondary to alcohol abuse, but the patient states since she was discharged on March 07, she did not drink any alcohol. Alcohol level is less than 3 in the ER. The patient was supposed to get a CAT scan in 1 month from February 26 when it was found to have soft tissue mass around superior mesenteric artery and also the patient is supposed to have an outpatient pancreatic endoscopic ultrasound scheduled for March. We will keep the patient currently n.p.o., IV fluids, IV antiemetics, IV pain medications. Repeat lipase in the a.m. Consult gastroenterology for further recommendations. The patient has chronic pain, continue on home pain medications. 2. Severe chronic obstructive pulmonary disease, continue her home nebulizations and inhalers. We will monitor in the hospital. She uses 2 L of oxygen at bedtime. 3. Tobacco use disorder, advised for cessation. 4. Alcohol abuse. The patient states she did not drink since she was discharged on March 07. Alcohol level is less than 3. 5. Gastritis, on Zantac. 6. Deep venous thrombosis prophylaxis, SCDs and TEDS. DISPOSITION: Admit to medical floor. Expect to discharge home and follow up with family doctor. Level 1 full code. Hospital Course Acute Recurrent Pancreatitis Likely secondary to Alcohol abuse Presented with Abdominal pain Lipase level in . This is the 3rd episode in 1 month CAT on 02/24/17: Abnormal soft tissue density abutting the superior mesenteric artery which is new since CT of March 12, 2016. This finding is nonspecific and could reflect the sequela of pancreatitis or less likely hemorrhage. A neoplastic etiology could appear similar and therefore a follow-up CT of the abdomen pancreas protocol in one month is recommended Patient is supposed to have an outpatient pancreatic endoscopic ultrasound scheduled for March. Repeat CT scan-pending Appreciate GI input NPO,Bowel test,IVF and pain medication Tolerating Low fat regular diet Ambulating without any difficulty Will discharge home today Severe chronic obstructive pulmonary disease, continue her home nebulizations and inhalers. She uses 2 L of oxygen at bedtime. No acute issue Tobacco use disorder, advised for cessation. Alcohol abuse. The patient states she did not drink since she was discharged on March 07. Alcohol level is less than 3. ADVISED REPEATEDLY TO QUIT DRINKING ALCOHOL Chronic pain On Narcotics Pain seems controlled Gastritis, on Zantac. Deep venous thrombosis prophylaxis, SCDs and TEDS. Total time spent on discharge = 35 minutes This includes examination of the patient, discharge planning, medication reconciliation, and communication with other providers. Discharge Instructions Date of Service March 16, 2017. Admission Reason for Admission: Abdominal Pain, Pancreatitis Discharge Discharge Diagnosis / Problem: Acute Recurrent pancreatitis Discharge Goals Goal(s): Prevent Disease Progression Activity Recommendations Activity Limitations: resume your previous activity . Instructions / Follow-Up Instructions / Follow-Up Keep your appointments.PLEASE DO NOT DRINK ANY ALCOHOL Current Hospital Diet Patient's current hospital diet: Low Fat Diet, Regular Diet Discharge Diet Recommended Diet: Regular Diet, Low Fat Diet Pending Studies Studies pending at discharge: no Medical Emergencies . Who to Call and When: Medical Emergencies: If at any time you feel your situation is an emergency, please call 911 immediately. . Non-Emergent Contact Non-Emergency issues call your: Primary Care Provider . Past History Medical & Surgical History: (1) Abdominal pain (2) Pancreatitis (3) Back pain (4) COPD (chronic obstructive pulmonary disease) (5) ABN LIVER FUNCTION STUDY (6) CHRONIC OBSTRUCTIVE ASTHMA, NOS (7) Osteoporosis (8) DEPRESSIVE DISORDER NEC (9) EMPHYSEMA NEC (10) TOBACCO USE DISORDER (11) Hx of appendectomy (12) H/o lumbar spinal surgery (13) H/O tubal ligation (14) S/p placement of lumbar electrical stimulator (15) Hx of cholecystectomy . "Provider Documentation" section prepared by Sweetie Lloyd. . VTE Core Measure Inpt VTE Proph given/why not?: SCD's <Electronically signed by Sweetie Lloyd M.D.> Additional Copies To Marcelo Epps M.D.
[2017-03-16] MEDS ORDERED: GABAPENTIN 400 MG CAP PO SCH (22:00)
[2017-03-17] MEDS ORDERED: NICOTINE 14 MG/24 HR TDSY TD SCH (09:00)
[2017-03-18] MEDS ORDERED: GABAPENTIN 400 MG CAP PO SCH (02:00)
[2017-03-19] MEDS ORDERED: GABAPENTIN 400 MG CAP PO SCH (14:00)
[2017-03-31] MEDS ORDERED: ASPI81TA28 PO (15:46)
[2017-03-31] MEDS ORDERED: PREDPOW63 PO (16:16)
[2017-03-31] MEDS ORDERED: UMEC1AER INH (16:16)
[2017-05-27] MEDS ORDERED: PRLSR20 PO (11:38)
[2017-05-27] MEDS ORDERED: UMEC1AER INH (11:38)
== END 2017-03-16 15:56 | disposition home or self-care (01) | DRG 440 ==
LOC: ENRESERVTM → ENRESERVDT → EDBD 21:40 → C.EDB 21:41 → C.MSW 03-15 00:37
PROVIDERS: ADMIT Internal Medicine; ATTEND Internal Medicine
DX: K85.20 Alcohol induced acute pancreatitis without necrosis or infection (principal); K86.0 Alcohol-induced chronic pancreatitis; T51.0X1A Toxic effect of ethanol, accidental (unintentional), initial encounter; R19.09 Other intra-abdominal and pelvic swelling, mass and lump; J44.9 Chronic obstructive pulmonary disease, unspecified; K29.70 Gastritis, unspecified, without bleeding; G89.29 Other chronic pain; M54.9 Dorsalgia, unspecified; F32.9 Major depressive disorder, single episode, unspecified; F10.10 Alcohol abuse, uncomplicated; F17.210 Nicotine dependence, cigarettes, uncomplicated; Z99.81 Dependence on supplemental oxygen; Z79.82 Long term (current) use of aspirin; Z79.891 Long term (current) use of opiate analgesic; Z79.899 Other long term (current) drug therapy

== ENCOUNTER 2017-04-22 07:38 | Day surgery (SDC) | payer OTHER ==
[2017-03-31 15:47] VITALS: BMI 12.0
[~2017-04-22] VITALS: Ht 165.1 cm; Wt 36.4 kg
[~2017-04-22 07:38] MED LIST changes: +ASPI81TA28 PO; +LACTATED RINGER'S 1000ML 1,000 ML IV SCH; -LORA-741 PO; -NCDT14 TD; +PREDPOW63 PO; -RABE20TA5 PO; +UMEC1AER INH
[2017-04-22 08:07] VITALS: BP 112/74; PULSE 105; TEMP 36.4; O2SAT 94; Ht 165.1 cm; Wt 36.4 kg
--- NOTE | 2017-04-22 08:55 | Endo History and Physical ---
History & Physical Date of Service: Apr 22, 2017. Chief Complaint: History of recurrent pancreatitis Referring Physician: History of Present Illness Patient presenting for f/u evaluation after an admission for pancreatitis ( history of ETOH and tobacco use). Past Medical History Osteoporosis, Asthma, Gastrointestinal Disorder, Reflux, CVA/TIA, Depression Past Surgical History Hx Cardiac Surgery: No Hx Internal Defibrillator: No Hx Pacemaker: No Hx Abdominal Surgery: Yes (TUBAL LIGATION,APPENDECTOMY,LAP GB) Hx Post-Op Nausea and Vomiting: No Hx Cancer Surgery: No Hx Thoracic Surgery: No Hx Orthopedic: Yes (BACK SURG X 8,NECK SURG X 3) Hx Urinary Tract Surgery: No ( ) Social History Smoking Status: Current Every Day Smoker Hx Substance Use: No Hx Alcohol Use: No Allergies Coded Allergies: Cephalosporins (Unverified Allergy, Severe, ANAPHYLAXIS, 04/06/17) PER RECORDS Morphine (Verified Allergy, Intermediate, hives, 03/31/17) Acetaminophen (Unverified Allergy, Unknown, RASH, 04/06/17) PER RECORDS Penicillins (Verified Allergy, Unknown, SHORTNESS OF BREATH, 03/31/17) Propoxyphene (Unverified Allergy, Unknown, RASH, 04/06/17) PER RECORDS Sulfa Antibiotics (Verified Allergy, Unknown, PERIORBITAL EDEMA, 03/31/17) Current Medications Reported Home Medications Medications Dose Route/Sig Max Daily Dose Days Date Category Dose Instructions [Prednisone] 1 Dose PO UD PRN 03/31/17 Reported RESCUE KIT-TAPERING DOSE Aspirin Ec (Aspirin) 81 Mg Tab 81 Mg PO QAM 03/31/17 Reported Lidoderm Patch 5% (Lidocaine) 1 Ea Tdsy 1 Patch TOP QAM 03/05/17 Reported Ventolin Hfa (Albuterol) 200 Puffs/35487 Mcg Aers 2 Puffs INH Q6H PRN 12/20/16 Reported Proventil 0.083% 2.5MG/3ML (Albuterol Sulf) 2.5 Mg/3 Ml Nebu 2.5 Mg INH DIRECTED 12/20/16 Reported Zantac (Ranitidine HCl) 150 Mg Tab 150 Mg PO BID 03/23/16 Reported Oxygen Gas 2 Liters NA HS 09/17/15 Reported Oysco 500+D (Calcium Carbonate-Cholecalcife) 1 Chw Chw 1 Tab PO QAM 09/17/15 Reported Docusate Sodium 100 Mg Cap 1 Cap PO BID 15 09/17/15 Reported Remeron (Mirtazapine) 15 Mg Tab 15 Mg PO HS 11/14/14 Reported Soma (Carisoprodol) 350 Mg Tab 350 Mg PO DAILY PRN 11/14/14 Reported Oxycodone HCl 5 Mg Tab 5 Mg PO Q4H PRN 11/14/14 Reported MAX= 6 TABLETS DAILY. Oxycontin (Oxycodone HCl) 40 Mg Tabcr 40 Mg PO Q12 11/14/14 Reported TAKE ONE 40 MG TABLET ALONG WITH ONE 60 MG TABLET TO EQUAL 100 MG DOSE. Combivent Respimat (Ipratropium-Albuterol) 1 Aer Aer 1 Puff INH QID 03/10/14 Reported Claritin (Loratadine) 10 Mg Tab 10 Mg PO QAM 03/10/14 Reported Oxycontin (Oxycodone Hcl) 60 Mg Tab 60 Mg PO Q12 07/04/13 Reported TAKE ONE 60 MG TABLET ALONG WITH ONE 40 MG TABLET TO EQUAL 100 MG DOSE. Ambien (Zolpidem Tartrate) 5 Mg Tab 5 Mg PO HS PRN 04/12/12 Reported Vital Signs Weight (Kilograms): 36.36 Height (Feet): 5 Height (Inches): 5 Date Time Temp Pulse Resp B/P (MAP) Pulse Ox O2 Delivery O2 Flow Rate FiO2 04/22/17 08:07 36.4 105 18 112/74 (87) 94 Room Air Physical Exam General Appearance: no apparent distress Respiratory/Chest: Auscultation: deminished air movement Cardiovascular: Heart Auscultation: RRR Abdomen: Inspection & Palpation: soft Assessment and Plan EGD / EUS for evaluation of recurrent pancreatitis. We have discussed the risks to include bleeding, infection, perforation, pain, and pancreatitis.
[2017-04-22] MEDS ORDERED: PROPOFOL IV EMULSION 10 MG/ML 20 ML VIAL IV ONE (08:57)
[2017-04-22] MEDS ORDERED: GLYCOPYRROLATE INJ 0.2 MG/ML VIAL ONE (08:57)
[2017-04-22] MEDS ORDERED: NEOSTIGMINE METHYLSULFATE 5 MG/5 ML SYR ONE (08:57)
[2017-04-22] MEDS ORDERED: SUCCINYLCHOLINE CHLORIDE 20 MG/ML 10 ML VIAL IV ONE (08:57)
[2017-04-22] MEDS ORDERED: DEXAMETHASONE SOD INJ 4 MG/ML VIAL ONE (08:57)
[2017-04-22] MEDS ORDERED: EpHEDrine SULFATE INJ 50 MG/ML AMP ONE (08:57)
[2017-04-22] MEDS ORDERED: ONDANSETRON INJ 2 MG/ML 2 ML VIAL ONE (08:57)
[2017-04-22] MEDS ORDERED: MIDAZOLAM HCL 1 MG/ML 2ML VIAL ONE (08:57)
[2017-04-22] MEDS ORDERED: LIDOCAINE HCL 2% 2 ML VIAL (20MG/ML) ONE (08:57)
[2017-04-22] MEDS ORDERED: PHENYLEPHRINE HCL INJ 10 MG/ML VIAL ONE (08:57)
[2017-04-22] MEDS ORDERED: ROCURONIUM BROMIDE 10 MG/ML 5 ML VIAL ONE (08:57)
[2017-04-22] MEDS ORDERED: FENTANYL CITRATE INJ 50 MCG/1 ML 2 ML VIAL ONE (08:58)
[2017-04-22] MEDS ORDERED: ONDANSETRON INJ 2 MG/ML 2 ML VIAL IV PRN ×2 (09:00→10:00)
[2017-04-22] MEDS ORDERED: EpHEDrine SULFATE INJ 50 MG/ML AMP IV PRN (09:00)
[2017-04-22] MEDS ORDERED: ATROPINE SULFATE 0.1 MG/ML 5ML SYR IV PRN (09:00)
[2017-04-22] MEDS ORDERED: PROMETHAZINE HCL INJ 6.25 MG in SODIUM CHLORIDE 0.9% 50ML 50 ML IV PRN (09:00)
[2017-04-22] MEDS ORDERED: LABETALOL HCL IV 5 MG/ML 20ML IV ONE (09:17)
--- NOTE | 2017-04-22 09:52 | [facility] Post Operative Brief Note ---
Immediate Operative Summary Operative Date Apr 22, 2017. Pre-Operative Diagnosis History of Recurrent Pancreatitis Post-Operative Diagnosis Mild atrophy of the pancreas Diffuse Gastritis Procedure(s) Performed Upper Endoscopy with Biopsy, Endoscopic Ultrasound Surgeon Dr. Denton Dish Carrier Surgeon(s) none Estimated Blood Loss 0 cc Findings Mild dilation of the CBD Atrophy of the pancreas, otherwise normal. Specimens Gastric biopsies Anesthesia General Complication(s) None Disposition Recovery Room / PACU
--- NOTE | 2017-04-22 09:54 | Discharge Instructions ---
Endoscopy Patient Instructions Date / Procedure(s) Performed Apr 22, 2017. EGD, Other (Endoscopic Ultrasound) Allergy Information Coded Allergies: Cephalosporins (Unverified Allergy, Severe, ANAPHYLAXIS, 04/06/17) PER RECORDS Morphine (Verified Allergy, Intermediate, hives, 03/31/17) Acetaminophen (Unverified Allergy, Unknown, RASH, 04/06/17) PER RECORDS Penicillins (Verified Allergy, Unknown, SHORTNESS OF BREATH, 03/31/17) Propoxyphene (Unverified Allergy, Unknown, RASH, 04/06/17) PER RECORDS Sulfa Antibiotics (Verified Allergy, Unknown, PERIORBITAL EDEMA, 03/31/17) Discharge Date / Findings Apr 22, 2017. Mild dilation of the common bile duct Diffuse gastritis Medication Instructions Reported Home Medications Medications Dose Route/Sig Max Daily Dose Days Date Category Dose Instructions [Prednisone] 1 Dose PO UD PRN 03/31/17 Reported RESCUE KIT-TAPERING DOSE Aspirin Ec (Aspirin) 81 Mg Tab 81 Mg PO QAM 03/31/17 Reported Lidoderm Patch 5% (Lidocaine) 1 Ea Tdsy 1 Patch TOP QAM 03/05/17 Reported Ventolin Hfa (Albuterol) 200 Puffs/52772 Mcg Aers 2 Puffs INH Q6H PRN 12/20/16 Reported Proventil 0.083% 2.5MG/3ML (Albuterol Sulf) 2.5 Mg/3 Ml Nebu 2.5 Mg INH DIRECTED 12/20/16 Reported Zantac (Ranitidine HCl) 150 Mg Tab 150 Mg PO BID 03/23/16 Reported Oxygen Gas 2 Liters NA HS 09/17/15 Reported Oysco 500+D (Calcium Carbonate-Cholecalcife) 1 Chw Chw 1 Tab PO QAM 09/17/15 Reported Docusate Sodium 100 Mg Cap 1 Cap PO BID 15 09/17/15 Reported Remeron (Mirtazapine) 15 Mg Tab 15 Mg PO HS 11/14/14 Reported Soma (Carisoprodol) 350 Mg Tab 350 Mg PO DAILY PRN 11/14/14 Reported Oxycodone HCl 5 Mg Tab 5 Mg PO Q4H PRN 11/14/14 Reported MAX= 6 TABLETS DAILY. Oxycontin (Oxycodone HCl) 40 Mg Tabcr 40 Mg PO Q12 11/14/14 Reported TAKE ONE 40 MG TABLET ALONG WITH ONE 60 MG TABLET TO EQUAL 100 MG DOSE. Combivent Respimat (Ipratropium-Albuterol) 1 Aer Aer 1 Puff INH QID 03/10/14 Reported Claritin (Loratadine) 10 Mg Tab 10 Mg PO QAM 03/10/14 Reported Oxycontin (Oxycodone Hcl) 60 Mg Tab 60 Mg PO Q12 07/04/13 Reported TAKE ONE 60 MG TABLET ALONG WITH ONE 40 MG TABLET TO EQUAL 100 MG DOSE. Ambien (Zolpidem Tartrate) 5 Mg Tab 5 Mg PO HS PRN 04/12/12 Reported Provider Instructions Activity Restrictions - No exercising or heavy lifting for 24 hours. - Do not drink alcohol the day of the procedure. - Do not drive a car or operate machinery until the day after the procedure. - Do not make any important decisions or sign important papers in 24 hours after the procedure. Following Day: - Return to full activity which may include returning to work/school. Diet Start your diet with liquids and light foods (jello, soup, juice, toast). Then eat your usual diet if not nauseated. Treatment For Common After Affects For mild abdominal pain, bloating, or excessive gas: - Rest - Eat lightly - Lie on right side Follow-Up Information Follow-up with Dr. Epps as scheduled Try Omeprazole 20 mg per day Follow--up with Gastroenterology as needed Consider avoidance of alcohol and tobacco Anesthesia Information What You Should Know You have had a procedure that required some medicine to reduce anxiety and discomfort. This treatment is called moderate sedation. After receiving the treatment, you may be sleepy, but you will be able to breathe on your own. The effects of the treatment may last for several hours. Follow these instructions along with Activity/Diet recommendations noted above: * Do NOT do anything where dizziness or clumsiness would be dangerous. * Rest quietly at home today, then you can be up and about tomorrow. * Have a responsible person stay with you the rest of today. * You may have had an I.V. today. If so, you may take the dressing off later today. Recommendations Call your doctor if: * Trouble breathing * Continuous vomiting for more than 24 hours * Temperature above 101 degrees * Severe abdominal pain or bloating * Pain not relieved by pain medicine ordered * There is increased drainage or redness from any incision * A large amount of rectal bleeding greater than 2-3 tablespoons. (If you had a polyp/s removed or have hemorrhoids, a small amount of blood - from the rectum is to be expected.) * You have any unanswered questions or concerns. IN THE EVENT OF A SERIOUS EMERGENCY, GO TO THE NEAREST EMERGENCY ROOM Your discharge instructions were prepared by provider Emma Denton. Patient Instructions Signature Page Rajani Liang Patient (or Guardian) Signature/Date: I have read and understand the instructions given to me by my caregivers. Caregiver/RN/Doctor Signature/Date: The above-named patient and/or guardian has received patient instructions on this date. + Original Patient Signature Page (only) stays with chart. Please make copy for patient.
--- NOTE | 2017-04-22 09:58 | GI REPORT ---
Procedure Date: 04/22/2017 9:10 AM Procedure: Upper GI endoscopy Indications: Epigastric abdominal pain Medicines: General Anesthesia Complications: No immediate complications. Estimated blood loss: Minimal. Estimated Blood Loss: Estimated blood loss was minimal. Procedure: Pre-Anesthesia Assessment: - Prior to the procedure, a History and Physical was performed, and patient medications, allergies and sensitivities were reviewed. The patient's tolerance of previous anesthesia was reviewed. - The risks and benefits of the procedure and the sedation options and risks were discussed with the patient. All questions were answered and informed consent was obtained. - Patient identification and proposed procedure were verified prior to the procedure by the physician, the nurse and the television presenter. The procedure was verified in the procedure room. - Pre-procedure physical examination revealed no contraindications to sedation. - ASA Grade Assessment: III - A patient with severe systemic disease. - After reviewing the risks and benefits, the patient was deemed in satisfactory condition to undergo the procedure. - The anesthesia plan was to use general anesthesia. - Immediately prior to administration of medications, the patient was re-assessed for adequacy to receive sedatives. - The heart rate, respiratory rate, oxygen saturations, blood pressure, adequacy of pulmonary ventilation, and response to care were monitored throughout the procedure. - The physical status of the patient was re-assessed after the procedure. After obtaining informed consent, the endoscope was passed under direct vision. Throughout the procedure, the patient's blood pressure, pulse, and oxygen saturations were monitored continuously. The scope was introduced through the mouth, and advanced to the third part of duodenum. The upper GI endoscopy was accomplished without difficulty. The patient tolerated the procedure well. Findings: The examined esophagus was normal. The Z-line was regular and was found 38 cm from the incisors. Diffuse moderate inflammation characterized by congestion (edema), erythema and granularity was found in the entire examined stomach. Biopsies were taken with a cold forceps for histology. Estimated blood loss was minimal. The examined duodenum was normal. Impression: - Normal esophagus. - Z-line regular, 38 cm from the incisors. - Gastritis. Biopsied. - Normal examined duodenum. Recommendation: - Use Prilosec (omeprazole) 20 mg PO daily. - Await pathology results. - Perform an upper endoscopic ultrasound (UEUS) today. Emma Denton D.O. Emma Denton DO 04/22/2017 9:57:59 AM This report has been signed electronically. Note Initiated On: 04/22/2017 9:10 AM I attest to the content of the Intraoperative Record and orders documented therein, exceptions below
--- NOTE | 2017-04-22 10:03 | GI REPORT ---
Procedure Date: 04/22/2017 9:20 AM Procedure: Upper EUS Indications: Acute recurrent pancreatitis Medicines: General Anesthesia Complications: No immediate complications. Estimated blood loss: Minimal. Estimated Blood Loss: Estimated blood loss was minimal. Procedure: Pre-Anesthesia Assessment: - Prior to the procedure, a History and Physical was performed, and patient medications, allergies and sensitivities were reviewed. The patient's tolerance of previous anesthesia was reviewed. - The risks and benefits of the procedure and the sedation options and risks were discussed with the patient. All questions were answered and informed consent was obtained. - Patient identification and proposed procedure were verified prior to the procedure by the physician, the nurse and the rn immunology. The procedure was verified in the procedure room. - Pre-procedure physical examination revealed no contraindications to sedation. - ASA Grade Assessment: III - A patient with severe systemic disease. - After reviewing the risks and benefits, the patient was deemed in satisfactory condition to undergo the procedure. - The anesthesia plan was to use general anesthesia. - Immediately prior to administration of medications, the patient was re-assessed for adequacy to receive sedatives. - The heart rate, respiratory rate, oxygen saturations, blood pressure, adequacy of pulmonary ventilation, and response to care were monitored throughout the procedure. - The physical status of the patient was re-assessed after the procedure. After obtaining informed consent, the endoscope was passed under direct vision. Throughout the procedure, the patient's blood pressure, pulse, and oxygen saturations were monitored continuously. The Endosonoscope was introduced through the mouth, and advanced to the second part of duodenum. The upper EUS was accomplished without difficulty. The patient tolerated the procedure well. Findings: Endosonographic Finding : There was no sign of significant endosonographic abnormality in the ampulla. No masses were identified. Evidence of a previous cholecystectomy was identified endosonographically. There was dilation in the common bile duct which measured up to 9.1 mm. No stricture, mass or stones were seen. There was no sign of significant endosonographic abnormality in the liver. No focal pathology and no masses were identified. Pancreatic parenchymal abnormalities were noted in the entire pancreas. These consisted of atrophy. The pancreatic duct was normal measuring 3.1 mm. No lymphadenopathy seen. There was no sign of significant endosonographic abnormality in the left adrenal gland. No masses and no adrenal gland enlargement were identified. Impression: - Normal ampulla. - Evidence of a cholecystectomy. - There was dilation in the common bile duct which measured up to 9.1 mm. Likely related to prior cholecystectomy. - visualized portion of liver were normal. - Pancreatic parenchymal abnormalities consisting of atrophy were noted in the entire pancreas. The patient does not have EUS evidence of chronic pancreatitis. - Normal left adrenal. - No specimens collected. Recommendation: - Discharge patient to home (ambulatory). - Advance diet as tolerated today. - Observe patient's clinical course. - Avoid alcohol and tobacco consumption. Emma Denton D.O. Emma Denton, DO 04/22/2017 10:02:06 AM This report has been signed electronically. Note Initiated On: 04/22/2017 9:20 AM I attest to the content of the Intraoperative Record and orders documented therein, exceptions below
[2017-04-22 10:06] VITALS: PULSE 88; O2SAT 96
[2017-04-22] MEDS: FENTANYL CITRATE INJ 50 MCG/1 ML 2 ML VIAL IV PRN ×2 (10:15→10:20)
--- NOTE | 2017-04-22 10:27 | Anesthesiology Progress Note ---
Anesthesia Post Op Note Date & Time Apr 22, 2017 at 10:26 Vital Signs Pain Intensity: 6 Vital Signs Past 12 Hours Date Time Temp Pulse Resp B/P (MAP) Pulse Ox O2 Delivery O2 Flow Rate FiO2 04/22/17 10:15 99 14 112/71 92 Room Air 04/22/17 10:06 88 18 96 Mask 04/22/17 10:05 91 14 107/73 99 Mask 10 04/22/17 09:55 96 14 114/71 100 Mask 10 04/22/17 09:49 36.8 94 14 119/71 100 Mask 10 04/22/17 08:07 36.4 105 18 112/74 (87) 94 Room Air Notes Mental Status: alert / awake / arousable, participated in evaluation Pt Amnestic to Procedure: Yes Nausea / Vomiting: adequately controlled Pain: adequately controlled Airway Patency, RR, SpO2: stable & adequate BP & HR: stable & adequate Hydration State: stable & adequate Anesthetic Complications: no major complications apparent
[2017-04-22 10:55] VITALS: BP 90/55; PULSE 95; TEMP 37; O2SAT 98
[2017-04-22 11:25] VITALS: BP 95/57; PULSE 98; O2SAT 98
[2017-04-22 11:55] VITALS: BP 101/60; PULSE 98; TEMP 36.8; O2SAT 94
[2017-05-27] MEDS ORDERED: PRLSR20 PO (11:38)
[2017-05-27] MEDS ORDERED: UMEC1AER INH (11:38)
== END 2017-04-22 12:10 | disposition home or self-care (01) ==
LOC: C.ACU 07:38
PROVIDERS: ATTEND Internal Medicine Gastroenterology
DX: K29.70 Gastritis, unspecified, without bleeding (principal); J45.909 Unspecified asthma, uncomplicated; J44.9 Chronic obstructive pulmonary disease, unspecified; Z88.5 Allergy status to narcotic agent; Z88.2 Allergy status to sulfonamides; Z86.73 Personal history of transient ischemic attack (TIA), and cerebral infarction without residual deficits; Z98.51 Tubal ligation status; Z90.89 Acquired absence of other organs; Z98.890 Other specified postprocedural states; Z88.0 Allergy status to penicillin

== ENCOUNTER → 2017-05-31 | Day surgery (SDC) | payer OTHER ==
[2017-05-27 11:41] VITALS: Ht 165.1 cm; Wt 36.4 kg
[~2017-05-31] VITALS: Ht 165.1 cm; Wt 36.4 kg
[~2017-05-31] MED LIST changes: -LACTATED RINGER'S 1000ML 1,000 ML IV SCH; +LIDOCAINE HCL 2% 2 ML VIAL (20MG/ML) ONE; +ONDANSETRON INJ 2 MG/ML 2 ML VIAL IV PRN; +PHENYLEPHRINE 100MCG/ML 5ML SYR ONE; +PRLSR20 PO; +PROPOFOL IV EMULSION 10 MG/ML 20 ML VIAL IV ONE
--- NOTE | 2017-05-31 08:33 | Endo History and Physical ---
History & Physical Date of Service: May 31, 2017. Chief Complaint: screening Referring Physician: Dr. Marcelo Epps History of Present Illness Patient for CRC screening today. No prior history of colon cancer or colon polyps. Last exam about 3 years ago with a poor preparation. Past Medical History Osteoporosis, Asthma, Gastrointestinal Disorder, Reflux, CVA/TIA, Depression Past Surgical History Hx Cardiac Surgery: No Hx Internal Defibrillator: No Hx Pacemaker: No Hx Abdominal Surgery: Yes (TUBAL LIGATION, APPY, MORAIMA) Hx of Implantable Prosthesis: No Hx Post-Op Nausea and Vomiting: No Hx Cancer Surgery: No Hx Thoracic Surgery: No Hx Orthopedic: Yes (BACK SURGERY X8, NECK SURGERY X3 (FULL ROM)) Hx Urinary Tract Surgery: No Family History None Social History Smoking Status: Current Every Day Smoker Hx Substance Use: No Hx Alcohol Use: Yes (QUIT 1-2 MONTHS AGO) Allergies Coded Allergies: Cephalosporins (Verified Allergy, Severe, ANAPHYLAXIS, 05/31/17) PER RECORDS Morphine (Verified Allergy, Intermediate, hives, 05/27/17) Acetaminophen (Verified Allergy, Unknown, RASH, 05/31/17) PER RECORDS Penicillins (Verified Allergy, Unknown, SHORTNESS OF BREATH, 05/27/17) Propoxyphene (Verified Allergy, Unknown, RASH, 05/31/17) PER RECORDS Sulfa Antibiotics (Verified Allergy, Unknown, PERIORBITAL EDEMA, 05/27/17) Current Medications Reported Home Medications Medications Dose Route/Sig Max Daily Dose Days Date Category Dose Instructions Anoro Ellipta 62.5-25 Mcg/INH (Umeclidinium-Vilanterol) 1 Aer Aer 1 Puff INH QAM 05/27/17 Reported Prilosec (Omeprazole) 20 Mg Capcr 20 Mg PO QAM 05/27/17 Reported [Prednisone] 1 Dose PO UD PRN 03/31/17 Reported RESCUE KIT-TAPERING DOSE Aspirin Ec (Aspirin) 81 Mg Tab 81 Mg PO QAM 03/31/17 Reported Lidoderm Patch 5% (Lidocaine) 1 Ea Tdsy 1 Patch TOP QAM 03/05/17 Reported Ventolin Hfa (Albuterol) 200 Puffs/05063 Mcg Aers 2 Puffs INH Q6H PRN 12/20/16 Reported Proventil 0.083% 2.5MG/3ML (Albuterol Sulf) 2.5 Mg/3 Ml Nebu 2.5 Mg INH DIRECTED 12/20/16 Reported Zantac (Ranitidine HCl) 150 Mg Tab 150 Mg PO BID 03/23/16 Reported Oxygen Gas 2 Liters NA HS 09/17/15 Reported Oysco 500+D (Calcium Carbonate-Cholecalcife) 1 Chw Chw 1 Tab PO QAM 09/17/15 Reported Docusate Sodium 100 Mg Cap 1 Cap PO BID 09/17/15 Reported Remeron (Mirtazapine) 15 Mg Tab 15 Mg PO HS 11/14/14 Reported Soma (Carisoprodol) 350 Mg Tab 350 Mg PO DAILY PRN 11/14/14 Reported Oxycodone HCl 5 Mg Tab 5 Mg PO Q4H PRN 11/14/14 Reported MAX= 6 TABLETS DAILY. Oxycontin (Oxycodone HCl) 40 Mg Tabcr 40 Mg PO Q12 11/14/14 Reported TAKE ONE 40 MG TABLET ALONG WITH ONE 60 MG TABLET TO EQUAL 100 MG DOSE. Combivent Respimat (Ipratropium-Albuterol) 1 Aer Aer 1 Puff INH QID 03/10/14 Reported Claritin (Loratadine) 10 Mg Tab 10 Mg PO QAM 03/10/14 Reported Oxycontin (Oxycodone Hcl) 60 Mg Tab 60 Mg PO Q12 07/04/13 Reported TAKE ONE 60 MG TABLET ALONG WITH ONE 40 MG TABLET TO EQUAL 100 MG DOSE. Ambien (Zolpidem Tartrate) 5 Mg Tab 5 Mg PO HS PRN 04/12/12 Reported Vital Signs Weight (Kilograms): 36.36 Height (Feet): 5 Height (Inches): 5 Date Time Temp Pulse Resp B/P (MAP) Pulse Ox O2 Delivery O2 Flow Rate FiO2 05/31/17 08:15 36.6 75 20 115/76 (89) 92 Room Air Physical Exam General Appearance: no apparent distress Respiratory/Chest: Auscultation: deminished air movement Cardiovascular: Heart Auscultation: RRR Abdomen: Inspection & Palpation: soft Assessment and Plan Patient for CRC screening today. Risks discussed to include bleeding, infection , perforation, pain, and missed polyps.
--- NOTE | 2017-05-31 09:04 | Discharge Instructions ---
Endoscopy Patient Instructions Date / Procedure(s) Performed May 31, 2017. Colonoscopy Allergy Information Coded Allergies: Cephalosporins (Verified Allergy, Severe, ANAPHYLAXIS, 05/31/17) PER RECORDS Morphine (Verified Allergy, Intermediate, hives, 05/27/17) Acetaminophen (Verified Allergy, Unknown, RASH, 05/31/17) PER RECORDS Penicillins (Verified Allergy, Unknown, SHORTNESS OF BREATH, 05/27/17) Propoxyphene (Verified Allergy, Unknown, RASH, 05/31/17) PER RECORDS Sulfa Antibiotics (Verified Allergy, Unknown, PERIORBITAL EDEMA, 05/27/17) Discharge Date / Findings May 31, 2017. Hemorrhoids 1 colon polyp Medication Instructions Stopped Medication(s): took ASA this am at 0700 Reported Home Medications Medications Dose Route/Sig Max Daily Dose Days Date Category Dose Instructions Anoro Ellipta 62.5-25 Mcg/INH (Umeclidinium-Vilanterol) 1 Aer Aer 1 Puff INH QAM 05/27/17 Reported Prilosec (Omeprazole) 20 Mg Capcr 20 Mg PO QAM 05/27/17 Reported [Prednisone] 1 Dose PO UD PRN 03/31/17 Reported RESCUE KIT-TAPERING DOSE Aspirin Ec (Aspirin) 81 Mg Tab 81 Mg PO QAM 03/31/17 Reported Lidoderm Patch 5% (Lidocaine) 1 Ea Tdsy 1 Patch TOP QAM 03/05/17 Reported Ventolin Hfa (Albuterol) 200 Puffs/84064 Mcg Aers 2 Puffs INH Q6H PRN 12/20/16 Reported Proventil 0.083% 2.5MG/3ML (Albuterol Sulf) 2.5 Mg/3 Ml Nebu 2.5 Mg INH DIRECTED 12/20/16 Reported Zantac (Ranitidine HCl) 150 Mg Tab 150 Mg PO BID 03/23/16 Reported Oxygen Gas 2 Liters NA HS 09/17/15 Reported Oysco 500+D (Calcium Carbonate-Cholecalcife) 1 Chw Chw 1 Tab PO QAM 09/17/15 Reported Docusate Sodium 100 Mg Cap 1 Cap PO BID 09/17/15 Reported Remeron (Mirtazapine) 15 Mg Tab 15 Mg PO HS 11/14/14 Reported Soma (Carisoprodol) 350 Mg Tab 350 Mg PO DAILY PRN 1/15/15 Reported Oxycodone HCl 5 Mg Tab 5 Mg PO Q4H PRN 11/14/14 Reported MAX= 6 TABLETS DAILY. Oxycontin (Oxycodone HCl) 40 Mg Tabcr 40 Mg PO Q12 11/14/14 Reported TAKE ONE 40 MG TABLET ALONG WITH ONE 60 MG TABLET TO EQUAL 100 MG DOSE. Combivent Respimat (Ipratropium-Albuterol) 1 Aer Aer 1 Puff INH QID 03/10/14 Reported Claritin (Loratadine) 10 Mg Tab 10 Mg PO QAM 03/10/14 Reported Oxycontin (Oxycodone Hcl) 60 Mg Tab 60 Mg PO Q12 07/04/13 Reported TAKE ONE 60 MG TABLET ALONG WITH ONE 40 MG TABLET TO EQUAL 100 MG DOSE. Ambien (Zolpidem Tartrate) 5 Mg Tab 5 Mg PO HS PRN 04/12/12 Reported Provider Instructions Activity Restrictions - No exercising or heavy lifting for 24 hours. - Do not drink alcohol the day of the procedure. - Do not drive a car or operate machinery until the day after the procedure. - Do not make any important decisions or sign important papers in 24 hours after the procedure. Following Day: - Return to full activity which may include returning to work/school. Diet Start your diet with liquids and light foods (jello, soup, juice, toast). Then eat your usual diet if not nauseated. Treatment For Common After Affects For mild abdominal pain, bloating, or excessive gas: - Rest - Eat lightly - Lie on right side Follow-Up Information Follow-up with Dr. Marcelo Epps as scheduled Repeat colonoscopy in 3 to 5 years Anesthesia Information What You Should Know You have had a procedure that required some medicine to reduce anxiety and discomfort. This treatment is called moderate sedation. After receiving the treatment, you may be sleepy, but you will be able to breathe on your own. The effects of the treatment may last for several hours. Follow these instructions along with Activity/Diet recommendations noted above: * Do NOT do anything where dizziness or clumsiness would be dangerous. * Rest quietly at home today, then you can be up and about tomorrow. * Have a responsible person stay with you the rest of today. * You may have had an I.V. today. If so, you may take the dressing off later today. Recommendations Call your doctor if: * Trouble breathing * Continuous vomiting for more than 24 hours * Temperature above 101 degrees * Severe abdominal pain or bloating * Pain not relieved by pain medicine ordered * There is increased drainage or redness from any incision * A large amount of rectal bleeding greater than 2-3 tablespoons. (If you had a polyp/s removed or have hemorrhoids, a small amount of blood - from the rectum is to be expected.) * You have any unanswered questions or concerns. IN THE EVENT OF A SERIOUS EMERGENCY, GO TO THE NEAREST EMERGENCY ROOM Your discharge instructions were prepared by provider Emma Denton. Patient Instructions Signature Page Rajani Liang Patient (or Guardian) Signature/Date: I have read and understand the instructions given to me by my caregivers. Caregiver/RN/Doctor Signature/Date: The above-named patient and/or guardian has received patient instructions on this date. + Original Patient Signature Page (only) stays with chart. Please make copy for patient.
--- NOTE | 2017-05-31 09:16 | Anesthesiology Progress Note ---
Anesthesia Post Op Note Date & Time May 31, 2017 at 09:16 Vital Signs Pain Intensity: 10 Vital Signs Past 12 Hours Date Time Temp Pulse Resp B/P (MAP) Pulse Ox O2 Delivery O2 Flow Rate FiO2 05/31/17 09:06 94 20 97/61 (73) 100 Room Air 05/31/17 08:15 36.6 75 20 115/76 (89) 92 Room Air Notes Mental Status: alert / awake / arousable, participated in evaluation Pt Amnestic to Procedure: Yes Nausea / Vomiting: adequately controlled Pain: adequately controlled Airway Patency, RR, SpO2: stable & adequate BP & HR: stable & adequate Hydration State: stable & adequate Anesthetic Complications: no major complications apparent
--- NOTE | 2017-05-31 09:17 | GI REPORT ---
Procedure Date: 05/31/2017 8:15 AM Procedure: Colonoscopy Indications: Screening for colorectal malignant neoplasm Medicines: Monitored Anesthesia Care Complications: No immediate complications. Estimated blood loss: Minimal. Estimated Blood Loss: Estimated blood loss was minimal. Procedure: Pre-Anesthesia Assessment: - Prior to the procedure, a History and Physical was performed, and patient medications, allergies and sensitivities were reviewed. The patient's tolerance of previous anesthesia was reviewed. - The risks and benefits of the procedure and the sedation options and risks were discussed with the patient. All questions were answered and informed consent was obtained. - Patient identification and proposed procedure were verified prior to the procedure by the physician, the nurse and the leasing coordinator. The procedure was verified in the procedure room. - Pre-procedure physical examination revealed no contraindications to sedation. - ASA Grade Assessment: II - A patient with mild systemic disease. - After reviewing the risks and benefits, the patient was deemed in satisfactory condition to undergo the procedure. - The anesthesia plan was to use monitored anesthesia care (MAC). - Immediately prior to administration of medications, the patient was re-assessed for adequacy to receive sedatives. - The heart rate, respiratory rate, oxygen saturations, blood pressure, adequacy of pulmonary ventilation, and response to care were monitored throughout the procedure. - The physical status of the patient was re-assessed after the procedure. After I obtained informed consent, the scope was passed under direct vision. Throughout the procedure, the patient's blood pressure, pulse, and oxygen saturations were monitored continuously. The scope was introduced through the anus and advanced to the terminal ileum. The colonoscopy was performed without difficulty. The patient tolerated the procedure well. The quality of the bowel preparation was adequate to identify polyps 6 mm and larger in size and fair. Findings: The perianal and digital rectal examinations were normal. Pertinent negatives include normal sphincter tone. The terminal ileum appeared normal. A 9 mm polyp was found in the ascending colon. The polyp was sessile. The polyp was removed with a hot snare. Resection and retrieval were complete. Estimated blood loss was minimal. Internal hemorrhoids were found during retroflexion. The hemorrhoids were mild. The exam was otherwise without abnormality. Impression: - The examined portion of the ileum was normal. - One 9 mm polyp in the ascending colon, removed with a hot snare. Resected and retrieved. - Internal hemorrhoids. - The examination was otherwise normal. Recommendation: - Discharge patient to home (ambulatory). - Advance diet as tolerated today. - Await pathology results. - Repeat colonoscopy in 3 - 5 years for surveillance based on pathology results. - Return to GI office PRN. Emma Denton D.O. Emma Denton, 05/31/2017 9:16:49 AM This report has been signed electronically. Note Initiated On: 05/31/2017 8:15 AM I attest to the content of the Intraoperative Record and orders documented therein, exceptions below
[2017-05-31 09:40] VITALS: BP 107/69; PULSE 87; O2SAT 93
== END | disposition home or self-care (01) ==
LOC: C.GI 07:54
PROVIDERS: ATTEND Internal Medicine Gastroenterology
DX: Z12.11 Encounter for screening for malignant neoplasm of colon (principal); D12.2 Benign neoplasm of ascending colon; M81.0 Age-related osteoporosis without current pathological fracture; J45.909 Unspecified asthma, uncomplicated; K21.9 Gastro-esophageal reflux disease without esophagitis; Z86.73 Personal history of transient ischemic attack (TIA), and cerebral infarction without residual deficits; Z90.49 Acquired absence of other specified parts of digestive tract; Z79.82 Long term (current) use of aspirin